=== PATIENT | male | born 1985 | race African-American/Black ===

== ENCOUNTER 2019-04-09 20:46 | Emergency (ER) | payer OTHER ==
--- NOTE | 2019-04-09 20:51 | PDOC ---
Rapid Medical Evaluation Time Seen by Provider: 04/09/19 20:49 Medical Evaluation: 04/09/19 20:50 HPI: Leg swelling and concern for liver disease PE: Slow speech appears intoxicated ORDERS: Labs Banana Bag Discharge Disposition - Diagnosis Intoxication - Referrals - Patient Instructions - Post Discharge Activity
[2019-04-09] MEDS ORDERED: FOLIC ACID INJECTION - 1 MG, THIAMINE HCL 100 MG, MULTIVIT INJECTION ADULT 10 ML in SOD... IVPB ONE ×2 (20:52→21:34)
[2019-04-09 20:54] VITALS: TEMP 97.9; BMI 27.3
--- NOTE | 2019-04-09 21:09 | PDOC ---
History of Present Illness - General Chief Complaint: Alcohol intoxication Stated Complaint: INTOX Time Seen by Provider: 04/09/19 20:49 History Source: Patient Exam Limitations: Intoxication - History of Present Illness Initial Comments: 04/09/19 21:09 33yM w PMHx cirrhosis, alcohol abuse presenting with alcohol intoxication, fall , and leg swelling. Passed out today while hanging out with friends, no head trauma, after drinking 1/2L vodka daily for past 3d. Had associated nose bleed after fall which self resolved. Ongoing R leg swelling for past month, L leg started swelling over past few days. Left AMA from [facility] 2 weeks ago before R leg could be ultrasound to r/o DVT. Denies headache, vision change, nausea/vomiting, chest pain/SOB, shaking, ABD pain, BLE sensation. Past History - Past Medical History Allergies/Adverse Reactions: Allergies Allergy/AdvReac Type Severity Reaction Status Date / Time No Known Allergies Allergy Verified 04/09/19 20:54 COPD: No Other medical history: cirrosis - Surgical History Abdominal Surgery: Yes (gastric bypass) - Psycho Social/Smoking Cessation Hx Smoking History: Never smoked Hx Alcohol Use: Yes Review of Systems - Review of Systems Constitutional: No: Chills, Fever HEENTM: No: Eye Pain, Nose Pain, Throat Pain Respiratory: No: Cough, Shortness of Breath Cardiac (ROS): No: Chest Pain, Palpitations ABD/GI: Yes: Abdominal Distended. No: Constipated, Diarrhea, Nausea, Vomiting : No: Burning, Dysuria, Flank Pain Musculoskeletal: No: Back Pain, Joint Pain Integumentary: No: Bruising, Dryness, Erythema Neurological: No: Headache, Seizure, Tingling Psychiatric: No: Anxiety, Depression, Stressors Endocrine: No: Excessive Sweating, Flushing, Intolerance to Cold, Intolerance to Heat *Physical Exam - Vital Signs Last Vital Signs Temp Pulse Resp BP Pulse Ox 97.9 F 100 H 18 132/72 99 04/09/19 20:50 04/09/19 20:50 04/09/19 20:50 04/09/19 20:50 04/09/19 20:50 - Physical Exam General Appearance: Yes: Nourished, Appropriately Dressed, Intoxicated HEENT: positive: EOMI, ELIOT, Normal Voice, Scleral Icterus (R), Scleral Icterus (L), Hearing Grossly Normal. negative: Nasal Congestion (dried blood in R nare) Neck: positive: Supple. negative: Tender, Rigid Respiratory/Chest: positive: Lungs Clear, Normal Breath Sounds. negative: Chest Tender, Respiratory Distress, Crackles, Rales, Rhonchi, Stridor, Wheezing Cardiovascular: positive: Regular Rhythm, Regular Rate, S1, S2. negative: Murmur Gastrointestinal/Abdominal: positive: Normal Bowel Sounds, Soft, Distended. negative: Tender, Guarding, Hernia, Mass Musculoskeletal: negative: CVA Tenderness (R), CVA Tenderness (L) Integumentary: positive: Normal Color, Dry. negative: Ecchymosis Neurologic: positive: Fully Oriented, Motor Strength 5/5, Responsive. negative : Normal Mood/Affect (delayed response, intoxicated), Numbness, Sensory Deficit , Confused ED Treatment Course - LABORATORY CBC & Chemistry Diagram: 04/09/19 22:20 04/09/19 22:20 Medical Decision Making - Medical Decision Making 04/09/19 21:55 Duplex US no DVT BLE Head/c-spine CT CXR - cardiomegaly, clear lung barrow Hgb 10.8 macrocytic anemia, INR 1.34, alcohol 234 --- 33yM w PMHx cirrhosis, alcohol abuse presenting with alcohol intoxication, fall , and leg swelling likely d/t cirrhosis Low concern for BLE DV (ruled out on duplex US) vs hepatic encephalopathy (no asterixis, not confused) vs withdrawal (no hand shaking/ ABD cramping/ vomiting ) vs pancreatitis (normal lipase) Given 1L banana bag and PO fluids Anticipate DC home vs [facility] detox - pending head, c-spine CT Signed out to night team Discharge - Discharge Information Problems reviewed: Yes Clinical Impression/Diagnosis: Left leg swelling Alcohol intoxication Qualifiers: Complication of substance-induced condition: uncomplicated Qualified Code(s): F10.920 - Alcohol use, unspecified with intoxication, uncomplicated Condition: Improved - Follow up/Referral - Patient Discharge Instructions - Post Discharge Activity
--- NOTE | 2019-04-09 22:40 | PDOC ---
Documentation entered by Yazan Obregon SCRIBE, acting as scribe for Raymundo Gregory MD. Raymundo Gregory MD: This documentation has been prepared by the Sabas shankar Daniel, SCRIBE, under my direction and personally reviewed by me in its entirety. I confirm that the documentation accurately reflects all work, treatment, procedures, and medical decision making performed by me. Attending Attestation - Resident Resident Name: Daren Sequeira - ED Attending Attestation I have performed the following: I have examined & evaluated the patient, The case was reviewed & discussed with the resident, I agree w/resident's findings & plan, Exceptions are as noted - HPI HPI: 04/09/19 22:14 The patient is a 33 year old male with a past medical history of alcohol abuse and liver cirrhosis here today for evaluation of syncope. The patient reports that he was drinking tonight with some of his friends when he thinks he passed out. He does not recall the circumstances of passing out. He states that he remembers waking up in the ambulance. Patient notes that his legs have been swollen in the past few weeks with the right worse than left and notes chronic abdominal distention. Denies any cough, hemptysis, ma, cp. Patient reports that he was admitted to [facility] in the past for liver failure with a history of epistaxis/gib, hoewver denies any recent history of gib/black stool. Patient denies headache, lightheadedness. Denies fever, chills. Denies chest pain, shortness of breath. Denies nausea, vomiting, diarrhea, dark or tarry stools, abdominal pain. Denies urinary symptoms. Allergies: NKA - Physicial Exam PE: 04/09/19 22:37 GENERAL: The patient is awake, alert, and fully oriented, Nontoxic - in no acute distress. HEAD: Normocephalic, atraumatic. EYES: extraocular movements intact, sclera anicteric, conjunctiva clear. ENT: Normal voice, Moist mucous membranes. NECK: Normal range of motion, supple LUNGS: Breath sounds equal, clear to auscultation bilaterally. No wheezes, no rhonchi, no rales. HEART: Regular rate and rhythm, normal S1 and S2 without murmur, rub or gallop. ABDOMEN: Soft, nontender, distended abdomen, No guarding, no rebound. No CVA tenderness EXTREMITIES: Normal range of motion, bl pitting edema R>L, neg homans, no calf tendernes NEUROLOGICAL: No facial assymetry, Normal speech, PSYCH: Normal mood, normal affect. SKIN: Warm, Dry, normal turgor, - Medical Decision Making 04/09/19 21:39 33y M hx of ETOH abuse, cirhosis presents with b/l LE edema and intoxication. ?syncpe vs intoxication Will obtain blood work, EtOH, CT head, EKG, PT/INR Will obtain ultrasound to rule out DVT Patient states he might be interested in detox he will consider it. 04/10/19 01:27 Patient's blood work was reviewed Awaiting CT results if negative anticipate discharge to detox Patient's alcohol level is elevated to 230, will need some time for metabolization of his alcohol suspect his LOC was likely intoxication rather than true syncope. Heart Score/ECG Review - ECG Impressions Comment:: 04/10/19 01:32 Twelve-lead EKG was performed and reviewed by me. There is normal sinus rhythm with a normal rate. Rate of 99 The axis is normal. The intervals are normal. There is normal R wave progression There are no ST or T wave abnormalities.
[2019-04-09 22:54] LABS: BASO % 0.8 % (0-2.0); HEMATOCRIT 31.2 % (35.4-49); HEMOGLOBIN 10.8 GM/dL (11.7-16.9); INR 1.34 (0.83-1.09); MCH 37.1 pg (25.7-33.7); MCHC 34.6 g/dl (32.0-35.9); MEAN CELL VOLUME 107.3 fl (80-96); MEAN PLT VOLUME 7.6 fl (7.5-11.1); MONO % 9.4 % (3.8-10.2); NEUT % 46.8 % (42.8-82.8); PLATELET COUNT 159 K/MM3 (134-434); PROTHROMBIN TIME (PATIENT) 15.8 SEC (9.7-13.0); RDW 12.6 % (11.9-15.9); WHITE BLOOD COUNT 5.4 K/mm3 (4.0-10.0)
[2019-04-09 23:18] LABS: ALBUMIN 2.8 g/dl (3.4-5.0); BILIRUBIN,TOTAL 2.5 mg/dL (0.2-1); BLOOD UREA NITROGEN 7.4 mg/dL (7-18); CALCIUM 8.5 mg/dL (8.5-10.1); CREATININE 1.1 mg/dL (0.55-1.3); POTASSIUM 3.9 mmol/L (3.5-5.1); TOT PROT 8.8 g/dl (6.4-8.2)
--- NOTE | 2019-04-10 03:13 | PDOC ---
*Physical Exam - Vital Signs Last Vital Signs Temp Pulse Resp BP Pulse Ox 97.9 F 100 H 18 132/72 99 04/09/19 20:50 04/09/19 20:50 04/09/19 20:50 04/09/19 20:50 04/09/19 20:50 ED Treatment Course - LABORATORY CBC & Chemistry Diagram: 04/09/19 22:20 04/09/19 22:20 - ADDITIONAL ORDERS Additional order review: Laboratory Results 04/09/19 04/09/19 04/09/19 22:20 22:20 22:20 PT with INR 15.80 H INR 1.34 H Sodium Potassium Chloride Carbon Dioxide Anion Gap BUN Creatinine Est GFR (CKD-EPI)AfAm Est GFR (CKD-EPI)NonAf Random Glucose Calcium Total Bilirubin AST ALT Alkaline Phosphatase Total Protein Albumin Lipase 156 Alcohol, Quantitative 234.5 H 04/09/19 22:20 PT with INR INR Sodium 141 Potassium 3.9 Chloride 108 H Carbon Dioxide 23 Anion Gap 10 BUN 7.4 Creatinine 1.1 Est GFR (CKD-EPI)AfAm 101.69 Est GFR (CKD-EPI)NonAf 87.74 Random Glucose 85 Calcium 8.5 Total Bilirubin 2.5 H AST 70 H ALT 31 Alkaline Phosphatase 146 H Total Protein 8.8 H Albumin 2.8 L Lipase Alcohol, Quantitative 04/09/19 22:20 RBC 2.90 L MCV 107.3 H MCHC 34.6 RDW 12.6 MPV 7.6 Neutrophils % 46.8 Lymphocytes % 42.0 H Monocytes % 9.4 Eosinophils % 1.0 Basophils % 0.8 - Medications Given in the ED: ED Medications Discontinued Medications Generic Name Dose Route Start Last Admin Trade Name Oscar PRN Reason Stop Dose Admin Folic Acid 1 mg/ Thiamine HCl 1,000 mls @ 125 mls/hr 04/09/19 20:52 04/09/19 21:50 100 mg/ Multivitamins/Minerals IVPB 04/10/19 04:51 Not Given 10 ml/ Sodium Chloride ONCE ONE Medical Decision Making - Medical Decision Making 04/10/19 03:13 Patient Name: MAMI HAILE THIS IS A PRELIMINARY REPORT FROM [facility] DATE OF SERVICE: 2019-04-09 23:48:27 IMAGES: [id number] EXAM: HEAD CT WITHOUT CONTRAST HISTORY: Trauma. COMPARISON: None. FINDINGS: Normal-sized ventricles normal in position without midline shift. No evidence of intracranial mass, hemorrhage, or infarction. No abnormal extra-axial fluid collections. Intact gonsales-white matter junction differentiation. Focal stranding in the left frontoparietal scalp. Intact osseous calvarium. Deformity of the left nasal bone without associated soft tissue swelling and this is probably related to old trauma. Unremarkable intraorbital structures. Clear mastoids and middle ear cavities. Clear imaged paranasal sinuses. IMPRESSION: No acute traumatic intracranial or osseous abnormality. 04/10/19 03:14 Patient Name: MAMI HAILE THIS IS A PRELIMINARY REPORT FROM [facility] DATE OF SERVICE: 2019-04-09 23:45:33 IMAGES: [id number] EXAM: CERVICAL SPINE CT W/O CONTR HISTORY: Trauma. COMPARISON: None. FINDINGS: Straightening of the normal cervical lordosis. No acute fractures or dislocations. Non-fusion of the posterior arch of C1, normal variant. Mild degenerative changes and disc bulging noted at C3-C4 and C4-C5. Evaluation of the intraspinal contents limited on CT scan. Prevertebral soft tissues within normal limits. Unremarkable thyroid gland. Patent airway. IMPRESSION: 1. Straightening of the normal cervical or ptosis could be due to spasm or patient positioning. 2. Mild degenerative changes with disc bulging at C3-C4 and C4-C5. Discharge - Discharge Information Problems reviewed: Yes Clinical Impression/Diagnosis: Left leg swelling Alcohol intoxication Qualifiers: Complication of substance-induced condition: uncomplicated Qualified Code(s): F10.920 - Alcohol use, unspecified with intoxication, uncomplicated Condition: Improved Disposition: HOME - Follow up/Referral - Patient Discharge Instructions Additional Instructions: PT ACCEPTED TO [facility]HOL [facility]; LAST REMAINING BED AT [facility]OX; HE WILL BE SENT THERE WITH [facility]. - Post Discharge Activity
--- NOTE | 2019-04-10 03:59 | PDOC ---
*Physical Exam - Vital Signs Last Vital Signs Temp Pulse Resp BP Pulse Ox 97.9 F 100 H 18 132/72 99 04/09/19 20:50 04/09/19 20:50 04/09/19 20:50 04/09/19 20:50 04/09/19 20:50 ED Treatment Course - LABORATORY CBC & Chemistry Diagram: 04/09/19 22:20 04/09/19 22:20 - ADDITIONAL ORDERS Additional order review: Laboratory Results 04/09/19 04/09/19 04/09/19 22:20 22:20 22:20 PT with INR 15.80 H INR 1.34 H Sodium Potassium Chloride Carbon Dioxide Anion Gap BUN Creatinine Est GFR (CKD-EPI)AfAm Est GFR (CKD-EPI)NonAf Random Glucose Calcium Total Bilirubin AST ALT Alkaline Phosphatase Total Protein Albumin Lipase 156 Alcohol, Quantitative 234.5 H 04/09/19 22:20 PT with INR INR Sodium 141 Potassium 3.9 Chloride 108 H Carbon Dioxide 23 Anion Gap 10 BUN 7.4 Creatinine 1.1 Est GFR (CKD-EPI)AfAm 101.69 Est GFR (CKD-EPI)NonAf 87.74 Random Glucose 85 Calcium 8.5 Total Bilirubin 2.5 H AST 70 H ALT 31 Alkaline Phosphatase 146 H Total Protein 8.8 H Albumin 2.8 L Lipase Alcohol, Quantitative 04/09/19 22:20 RBC 2.90 L MCV 107.3 H MCHC 34.6 RDW 12.6 MPV 7.6 Neutrophils % 46.8 Lymphocytes % 42.0 H Monocytes % 9.4 Eosinophils % 1.0 Basophils % 0.8 - Medications Given in the ED: ED Medications Discontinued Medications Generic Name Dose Route Start Last Admin Trade Name Oscar PRN Reason Stop Dose Admin Folic Acid 1 mg/ Thiamine HCl 1,000 mls @ 125 mls/hr 04/09/19 20:52 04/09/19 21:50 100 mg/ Multivitamins/Minerals IVPB 04/10/19 04:51 Not Given 10 ml/ Sodium Chloride ONCE ONE Medical Decision Making - Medical Decision Making Sign out received from Dr. Sequeira. 33M w/hx EtOH use disorder p/w etoh intoxication, reporting interest in detox. Plan for serial reassessment, and once clinically sober discharge to either home or detox if bed available. --- Detox bed available at [facility] if Mr. Lo would like to pursue detox. --- On reassessment, patient is clinically sober, ambulating without assistance without difficulty and fully alert and oriented. Discussed availability of detox bed. He declines detox at this time. Plan for discharge with PCP follow up. Discharge - Discharge Information Problems reviewed: Yes Clinical Impression/Diagnosis: Left leg swelling Alcohol intoxication Qualifiers: Complication of substance-induced condition: uncomplicated Qualified Code(s): F10.920 - Alcohol use, unspecified with intoxication, uncomplicated Condition: Improved Disposition: HOME - Admission No - Follow up/Referral - Patient Discharge Instructions Additional Instructions: You were seen in the ER for alcohol intoxication. Your bloodwork showed some signs of liver damage. Please consider detox or reducing your alcohol intake. Please return to the ER if you have chest pain, difficulty breathing, weakness, vision changes, or confusion. Please see your primary care provider as soon as possible, in the next 4 days. - Post Discharge Activity
[2019-04-10 04:13] VITALS: BP 137/76; PULSE 86
[2019-04-10 04:59] LABS: MACROCYTOSIS 2+
--- NOTE | 2019-04-10 08:45 | EKG ---
Test Reason : Blood Pressure : / mmHG Vent. Rate : 099 BPM Atrial Rate : 099 BPM P-R Int : 130 ms QRS Dur : 098 ms QT Int : 368 ms P-R-T Axes : 070 004 025 degrees QTc Int : 472 ms NORMAL SINUS RHYTHM POSSIBLE LEFT ATRIAL ENLARGEMENT BORDERLINE ECG NO PREVIOUS ECGS AVAILABLE Confirmed by CRISTOFER MENESES MD ([id number]) on 04/10/2019 8:45:27 AM Referred By: Confirmed By:CRISTOFER MENESES MD
== END 2019-04-10 04:00 | disposition home or self-care (01) ==
LOC: JER 20:46
PROC: 3E033GC Introduction of Other Therapeutic Substance into Peripheral Vein, Percutaneous Approach (ICD-10-PCS; principal; 2019-04-09)
DX: F10.120 Alcohol abuse with intoxication, uncomplicated (principal); Y90.7 Blood alcohol level of 200-239 mg/100 ml; R60.0 Localized edema; R55 Syncope and collapse
CPT/HCPCS: 36415; 70450-TC; 71045-TC-FY; 72125-TC; 80053; 80307; 83690; 85025; 85610; 93005; 93010; 93970-TC; 96365; 96366; 99284-25; J7030

== ENCOUNTER 2021-10-31 00:13 | Inpatient (IN) | payer OTHER ==
[2021-10-31] MEDS ORDERED: MAG HYDROX/AL HYDROX/SIMETH 30 ML UNIT-DOSE CUP PO ONE (01:58)
[2021-10-31] MEDS ORDERED: ACETAMINOPHEN 1000 MG/100 ML BAG IVPB ONE (01:58)
[2021-10-31] MEDS ORDERED: FAMOTIDINE 10 MG TABLET PO ONE (01:58)
[2021-10-31] MEDS ORDERED: FAMOTIDINE 20 MG/50 ML IVPB 20 MG/50 ML MG IVPB ONE ×2 (02:07→02:17)
[2021-10-31] MEDS ORDERED: MAG HYDROX/AL HYDROX/SIMETH 30 ML UNIT-DOSE CUP ONE (02:17)
[2021-10-31] MEDS ORDERED: ACETAMINOPHEN INJECTION 100 ML IVPB ONE (02:17)
[2021-10-31] MEDS ORDERED: SODIUM CHLORIDE 0.9% 500 ML INFUS.BAG IV ONE (02:18)
[2021-10-31 03:16] LABS: BASO % 1.1 % (0-2.0); EOS % 2.5 % (0-4.5); HEMATOCRIT 21.7 % (35.4-49); HEMOGLOBIN 7.2 GM/dL (11.7-16.9); LYMPH % 41.2 % (8-40); MCH 27.6 pg (25.7-33.7); MEAN CELL VOLUME 83.6 fl (80-96); MEAN PLT VOLUME 7.2 fl (7.5-11.1); MONO % 4.8 % (3.8-10.2); NEUT % 50.4 % (42.8-82.8); PLATELET COUNT 237 10^3/uL (134-434); RDW 19.6 % (11.9-15.9); WHITE BLOOD COUNT 2.7 K/mm3 (4.0-10.0)
[2021-10-31] MEDS ORDERED: morphine CARPU-JECT 2 MG/1 ML DISP.SYRIN IVPUSH ONE (03:35)
[2021-10-31 03:40] LABS: CHLORIDE 105 mmol/L (98-107); SODIUM 142 mmol/L (136-145)
[2021-10-31 03:42] LABS: ALBUMIN 2.9 g/dl (3.4-5.0); ANION GAP 14 MMOL/L (8-16); BLOOD UREA NITROGEN 12.6 mg/dL (7-18); CO2 24 mmol/L (21-32); GLUCOSE,RANDOM 78 mg/dL (74-106); LIPASE 187 U/L (73-393)
[2021-10-31 03:45] LABS: CREATININE 0.7 mg/dL (0.55-1.3); SGOT/AST 51 U/L (15-37); SGPT/ALT 27 U/L (13-61)
[2021-10-31 03:47] LABS: BILIRUBIN,TOTAL 0.9 mg/dL (0.2-1); TOT PROT 7.3 g/dl (6.4-8.2)
[2021-10-31 03:48] LABS: ALK PHOS 172 U/L (45-117)
[2021-10-31 06:05] LABS: INR 1.07 (0.83-1.09); PROTHROMBIN TIME (PATIENT) 12.3 SEC (9.7-13.0)
[2021-10-31 06:08] LABS: ACTIVATED PTT 28.5 SECONDS (25.2-36.5)
[2021-10-31] MEDS ORDERED: POTASSIUM CHLORIDE TABS 20 MEQ TABLET.ER (FP) PO ONE ×2 (08:10→09:33)
[2021-10-31 08:51] LABS: MAGNESIUM 1.6 mg/dL (1.8-2.4)
[2021-10-31 08:55] LABS: PHOSPHOROUS 3.8 mg/dL (2.5-4.9)
[2021-10-31] MEDS ORDERED: PANTOPRAZOLE SODIUM 40 MG VIAL ONE (09:33)
[2021-10-31] MEDS ORDERED: oxyCODONE HCL 5 MG TABLET PO PRN (09:48)
[2021-10-31] MEDS ORDERED: morphine CARPU-JECT 2 MG/1 ML DISP.SYRIN IVPUSH PRN (09:49)
[2021-10-31] MEDS ORDERED: PANTOPRAZOLE SODIUM 40 MG VIAL IVPUSH SCH (10:00)
[2021-10-31 11:20] LABS: BILIRUBIN,DIRECT 0.5 mg/dL (0.0-0.2)
[2021-10-31] MEDS: BICTEGRAV/EMTRICIT/TENOFOV (BIKTARVY) 50-200-25 MG TABLET PO SCH (12:09)
[2021-10-31] MEDS ORDERED: cefTRIAXone SODIUM 1 GM VIAL ONE (12:11)
[2021-10-31 12:13] LABS: GAMMA GLUTAMYL TRANSPEPTIDASE 1218 U/L (5-85)
[2021-10-31] MEDS: LORazepam 2 MG/ML SDV VIAL IVPUSH PRN ×2 (12:19→23:37)
[2021-10-31] MEDS: CEFTRIAXONE 1 GM in DEXTROSE 5%-WATER - 50 ML IVPB SCH (12:19)
[2021-10-31] MEDS ORDERED: LACTATED RINGERS SOLUTION 1,000 ML/1,000 ML INFUS.BAG IV SCH (16:00)
[2021-10-31] MEDS: LACTATED RINGERS SOLUTION 1,000 ML/1,000 ML INFUS.BAG IV SCH (19:39)
[2021-11-01 07:55] LABS: BASO % 0.7 % (0-2.0); HEMATOCRIT 21.1 % (35.4-49); LYMPH % 29.2 % (8-40); MCH 27.9 pg (25.7-33.7); MCHC 33.1 g/dl (32.0-35.9); MEAN CELL VOLUME 84.3 fl (80-96); MEAN PLT VOLUME 7.5 fl (7.5-11.1); MONO % 7.4 % (3.8-10.2); NEUT % 59.7 % (42.8-82.8); PLATELET COUNT 174 10^3/uL (134-434); RBC 2.51 M/mm3 (4.00-5.60); RDW 19.3 % (11.9-15.9)
[2021-11-01 08:01] LABS: WHITE BLOOD COUNT 1.8 K/mm3 (4.0-10.0)
[2021-11-01 08:27] LABS: BILIRUBIN,TOTAL 1.4 mg/dL (0.2-1); TOT PROT 6.7 g/dl (6.4-8.2)
[2021-11-01 08:29] LABS: BLOOD UREA NITROGEN 4.8 mg/dL (7-18)
[2021-11-01 08:30] LABS: ALBUMIN 2.7 g/dl (3.4-5.0); MAGNESIUM 1.3 mg/dL (1.8-2.4)
[2021-11-01 08:33] LABS: CREATININE 0.6 mg/dL (0.55-1.3); PHOSPHOROUS 3.2 mg/dL (2.5-4.9)
[2021-11-01 08:53] LABS: ANISOCYTOSIS 1+; MACROCYTOSIS 1+
[2021-11-01] MEDS ORDERED: MAGNESIUM 2GM/50ML STERILE WATER IVPB IVPB ONE (09:30)
[2021-11-01] MEDS: BICTEGRAV/EMTRICIT/TENOFOV (BIKTARVY) 50-200-25 MG TABLET PO SCH (12:38)
[2021-11-01] MEDS ORDERED: MAGNESIUM SULFATE IN WATER 2 GM/50 ML IVPB IVPB ONE (12:46)
[2021-11-01] MEDS ORDERED: CEFTRIAXONE 1 GM/50 ML BAG ONE (12:46)
[2021-11-01] MEDS: CEFTRIAXONE 1 GM in DEXTROSE 5%-WATER - 50 ML IVPB SCH (12:54)
[2021-11-01] MEDS ORDERED: LORazepam 1 MG TABLET PO PRN (15:50)
[2021-11-01] MEDS ORDERED: IRON SUCROSE INJECTION 200 MG in SODIUM CHLORIDE 90 ML IVPB ONE (15:51)
[2021-11-01] MEDS ORDERED: LORazepam 1 MG TABLET ONE ×2 (17:14→23:22)
[2021-11-01] MEDS: LORazepam 1 MG TABLET PO SCH ×2 (17:27→23:26)
[2021-11-01] MEDS: LACTATED RINGERS SOLUTION 1,000 ML/1,000 ML INFUS.BAG IV SCH (22:07)
[2021-11-02] MEDS ORDERED: LORazepam 1 MG TABLET ONE ×2 (05:22→11:31)
[2021-11-02] MEDS: LORazepam 1 MG TABLET PO SCH ×4 (05:25→22:02)
[2021-11-02 06:23] VITALS: RESP 18
[2021-11-02] MEDS ORDERED: cefTRIAXone SODIUM 1 GM VIAL ONE (08:11)
[2021-11-02 08:39] LABS: BASO % 0.8 % (0-2.0); HEMATOCRIT 21.9 % (35.4-49); HEMOGLOBIN 7.2 GM/dL (11.7-16.9); LYMPH % 29.3 % (8-40); MCH 27.6 pg (25.7-33.7); MEAN CELL VOLUME 83.7 fl (80-96); MEAN PLT VOLUME 7.8 fl (7.5-11.1); MONO % 7.2 % (3.8-10.2); NEUT % 59.7 % (42.8-82.8); PLATELET COUNT 161 10^3/uL (134-434); RBC 2.61 M/mm3 (4.00-5.60); RDW 19.2 % (11.9-15.9)
[2021-11-02 08:45] LABS: INR 1.18 (0.83-1.09); PROTHROMBIN TIME (PATIENT) 13.6 SEC (9.7-13.0)
[2021-11-02 09:04] LABS: ALBUMIN 2.8 g/dl (3.4-5.0); BLOOD UREA NITROGEN 5.7 mg/dL (7-18); CALCIUM 8.4 mg/dL (8.5-10.1); MAGNESIUM 1.5 mg/dL (1.8-2.4)
[2021-11-02 09:07] LABS: CREATININE 0.7 mg/dL (0.55-1.3); PHOSPHOROUS 3.5 mg/dL (2.5-4.9)
[2021-11-02 09:09] LABS: BILIRUBIN,TOTAL 1.1 mg/dL (0.2-1)
[2021-11-02] MEDS: BICTEGRAV/EMTRICIT/TENOFOV (BIKTARVY) 50-200-25 MG TABLET PO SCH (09:26)
[2021-11-02] MEDS: CEFTRIAXONE 1 GM in DEXTROSE 5%-WATER - 50 ML IVPB SCH (09:26)
[2021-11-02] MEDS: PANTOPRAZOLE SODIUM 40 MG VIAL IVPUSH SCH ×2 (09:27→21:47)
[2021-11-02] MEDS ORDERED: MAGNESIUM 2GM/50ML STERILE WATER IVPB IVPB ONE (11:15)
[2021-11-02] MEDS ORDERED: MAGNESIUM SULFATE IN WATER 2 GM/50 ML IVPB IVPB ONE (11:29)
[2021-11-02 11:36] LABS: URINE APPEARANCE CLEAR; URINE BILIRUBIN NEGATIVE (NEGATIVE); URINE COLOR YELLOW; URINE GLUCOSE (UA) NEGATIVE (NEGATIVE); URINE KETONE NEGATIVE (NEGATIVE); URINE LEUK ESTERASE NEGATIVE (NEGATIVE); URINE NITRITE NEGATIVE (NEGATIVE); URINE PROTEIN NEGATIVE (NEGATIVE)
[2021-11-02 15:17] VITALS: BMI 26.6
[2021-11-02] MEDS: LACTATED RINGERS SOLUTION 1,000 ML/1,000 ML INFUS.BAG IV SCH (19:40)
[2021-11-03] MEDS: LORazepam 1 MG TABLET PO SCH ×4 (06:06→22:21)
[2021-11-03] MEDS: PANTOPRAZOLE SODIUM 40 MG VIAL IVPUSH SCH ×2 (09:40→21:13)
[2021-11-03] MEDS: BICTEGRAV/EMTRICIT/TENOFOV (BIKTARVY) 50-200-25 MG TABLET PO SCH (09:40)
[2021-11-03 10:02] LABS: BASO % 0.7 % (0-2.0); EOS % 2.2 % (0-4.5); HEMATOCRIT 22.6 % (35.4-49); HEMOGLOBIN 7.3 GM/dL (11.7-16.9); LYMPH % 28.5 % (8-40); MCH 27.7 pg (25.7-33.7); MCHC 32.3 g/dl (32.0-35.9); MEAN CELL VOLUME 85.6 fl (80-96); MEAN PLT VOLUME 8.7 fl (7.5-11.1); MONO % 7.1 % (3.8-10.2); NEUT % 61.5 % (42.8-82.8); PLATELET COUNT 144 10^3/uL (134-434); RBC 2.64 M/mm3 (4.00-5.60); RDW 19.4 % (11.9-15.9)
[2021-11-03 10:21] LABS: CALCIUM 8.5 mg/dL (8.5-10.1)
[2021-11-03 10:22] LABS: ALBUMIN 2.8 g/dl (3.4-5.0); BLOOD UREA NITROGEN 8.9 mg/dL (7-18); MAGNESIUM 1.7 mg/dL (1.8-2.4)
[2021-11-03 10:25] LABS: CREATININE 0.9 mg/dL (0.55-1.3); PHOSPHOROUS 2.7 mg/dL (2.5-4.9)
[2021-11-03 10:26] LABS: BILIRUBIN,TOTAL 1.1 mg/dL (0.2-1)
[2021-11-03 10:27] LABS: TOT PROT 6.9 g/dl (6.4-8.2)
[2021-11-03] MEDS: LACTATED RINGERS SOLUTION 1,000 ML/1,000 ML INFUS.BAG IV SCH ×2 (14:45→20:15)
[2021-11-03] MEDS ORDERED: POTASSIUM CHLORIDE TABS 20 MEQ TABLET.ER (FP) PO ONE (15:00)
[2021-11-03] MEDS ORDERED: MAGNESIUM SULF 50% (8.12 MEQ/2 ML-1 GM VIAL) IVPB ONE (15:00)
[2021-11-04] MEDS ORDERED: LORazepam 0.5 MG TABLET PO PRN
[2021-11-04] MEDS: LORazepam 0.5 MG TABLET PO SCH ×4 (06:10→23:51)
[2021-11-04] MEDS: PANTOPRAZOLE SODIUM 40 MG VIAL IVPUSH SCH ×2 (09:21→21:37)
[2021-11-04] MEDS: BICTEGRAV/EMTRICIT/TENOFOV (BIKTARVY) 50-200-25 MG TABLET PO SCH (09:21)
[2021-11-04 09:28] LABS: BLOOD UREA NITROGEN 10.3 mg/dL (7-18); CALCIUM 8.5 mg/dL (8.5-10.1); MAGNESIUM 1.9 mg/dL (1.8-2.4)
[2021-11-04 09:31] LABS: CREATININE 0.8 mg/dL (0.55-1.3)
[2021-11-04] MEDS ORDERED: DICYCLOMINE HCL 10 MG CAPSULE PO ONE (13:34)
[2021-11-04] MEDS: CHOLECALCIFEROL (VIT D3) 5000 UNITS (125 MCG) CAP PO SCH (14:10)
[2021-11-04] MEDS ORDERED: oxyCODONE HCL 5 MG TABLET PO ONE (22:01)
[2021-11-04] MEDS: LACTATED RINGERS SOLUTION 1,000 ML/1,000 ML INFUS.BAG IV SCH (23:52)
[2021-11-05] MEDS ORDERED: LORazepam 0.5 MG TABLET PO ONE (05:00)
[2021-11-05] MEDS: PANTOPRAZOLE SODIUM 40 MG VIAL IVPUSH SCH (10:58)
[2021-11-05] MEDS: BICTEGRAV/EMTRICIT/TENOFOV (BIKTARVY) 50-200-25 MG TABLET PO SCH (11:05)
[2021-11-05] MEDS: CHOLECALCIFEROL (VIT D3) 5000 UNITS (125 MCG) CAP PO SCH (11:05)
[2021-11-05 14:13] VITALS: BP 142/85; PULSE 78; TEMP 98.5
[2021-11-08 11:09] LABS: VITAMIN E (B-GAMMA) 0.8 mg/L (0.7-4.9)
== END 2021-11-05 15:25 | disposition home or self-care (01) | DRG 282 ==
LOC: JER 00:13 → JERBED 04:42 → J6S 11-02 14:23
PROVIDERS: ADMIT Internal Medicine
DX: K85.20 Alcohol induced acute pancreatitis without necrosis or infection (principal); K70.30 Alcoholic cirrhosis of liver without ascites; D50.9 Iron deficiency anemia, unspecified; D70.9 Neutropenia, unspecified; E83.42 Hypomagnesemia; Z21 Asymptomatic human immunodeficiency virus [HIV] infection status; F10.129 Alcohol abuse with intoxication, unspecified; Z87.19 Personal history of other diseases of the digestive system; K80.20 Calculus of gallbladder without cholecystitis without obstruction; M79.642 Pain in left hand; R19.7 Diarrhea, unspecified; R16.0 Hepatomegaly, not elsewhere classified; R63.4 Abnormal weight loss; Z68.26 Body mass index [BMI] 26.0-26.9, adult; S61.412A Laceration without foreign body of left hand, initial encounter; Y08.89XA Assault by other specified means, initial encounter; Y93.89 Activity, other specified; Y92.89 Other specified places as the place of occurrence of the external cause
CPT/HCPCS: 36415; 73130-TC-LT-FY; 73200-TC-RT; 74176-TC; 76705-TC; 78226-TC; 80048; 80053; 80307; 81003; 82105; 82248; 82272; 82306; 82607; 82728; 82746; 82977; 83540; 83550; 83690; 83735; 84100; 84443; 84446; 84484; 84590; 84597; 85025; 85610; 85730; 86140; 86645; 86705; 86708; 86803; 86850; 86900; 86901; 87040; 87086; 87340; 87517; 93005; 93010; 99285-25; A9537; C9803-CS; J1756; U0003; U0005

== ENCOUNTER 2022-11-06 11:25 | Inpatient (IN) | payer OTHER ==
[~2022-11-06 11:25] MED LIST: diazePAM 5 MG TABLET PO SCH
[2022-11-06 11:49] VITALS: BMI 25.0
[2022-11-06] MEDS ORDERED: BISMUTH SUBSALICYLATE 524 MG/30 ML PO PRN (13:23)
[2022-11-06] MEDS ORDERED: IBUPROFEN 400 MG TABLET (FP) PO PRN (13:23)
[2022-11-06] MEDS ORDERED: NALOXONE HCL (KLOXXADO) 8 MG SPRAY NS PRN (13:23)
[2022-11-06] MEDS ORDERED: ONDANSETRON *ODT* 4 MG TABLET SL PRN (13:23)
[2022-11-06] MEDS ORDERED: NALOXONE HCL 0.4 MG/ML VIAL IM PRN (13:23)
[2022-11-06] MEDS ORDERED: DICYCLOMINE HCL 10 MG CAPSULE PO PRN (13:23)
[2022-11-06] MEDS ORDERED: ACETAMINOPHEN 325 MG TABLET (FP) PO PRN (13:23)
[2022-11-06] MEDS ORDERED: MAG HYDROX/AL HYDROX/SIMETH 30 ML UNIT-DOSE CUP PO PRN (13:23)
[2022-11-06] MEDS ORDERED: IBUPROFEN 600 MG TABLET (FP) PO PRN (13:23)
[2022-11-06] MEDS ORDERED: LOPERAMIDE HCL 2 MG CAPSULE PO PRN (13:23)
[2022-11-06] MEDS ORDERED: BENZONATATE 200 MG CAPSULE PO PRN (13:23)
[2022-11-06] MEDS ORDERED: MAGNESIUM HYDROX 2400MG/30ML ORAL SUSPENSION 30 ML CUP PO PRN (13:23)
[2022-11-06] MEDS ORDERED: BENZOCAINE/MENTHOL (CHLORASEPTIC ) LOZENGE MM PRN (13:23)
[2022-11-06] MEDS ORDERED: guaiFENesin 600 MG TABLET.ER (FP) PO PRN (13:23)
[2022-11-06] MEDS ORDERED: POLYETHYLENE GLYCOL (HEALTHYLAX) 3350 17 GM PACKET PO PRN (13:23)
[2022-11-06] MEDS: diazePAM 5 MG TABLET PO PRN (14:49)
[2022-11-06] MEDS ORDERED: ONDANSETRON *ODT* 4 MG TABLET ONE (14:53)
[2022-11-06] MEDS ORDERED: NEOMYCIN/POLYMYXIN/HC TOPICAL CREAM 7.5 GM TUBE TP SCH ×2 (15:30→20:15)
[2022-11-06] MEDS: PRENATAL VITAMINS W/ FOLIC ACID TABLET (FP) PO SCH (15:55)
[2022-11-06] MEDS: diazePAM 5 MG TABLET PO SCH ×2 (17:49→22:07)
[2022-11-06] MEDS: MELATONIN 5 MG TABLETS PO SCH (22:06)
[2022-11-06] MEDS: THIAMINE HCL 100 MG TABLET (FP) PO SCH (22:06)
[2022-11-07] MEDS: diazePAM 5 MG TABLET PO SCH ×4 (05:24→22:06)
[2022-11-07 09:58] LABS: HEMOGLOBIN 7.7 GM/dL (11.7-16.9); MCH 28.5 pg (25.7-33.7); MCHC 31.9 g/dl (32.0-35.9); MEAN CELL VOLUME 89.3 fl (80-96); MEAN PLT VOLUME 8.8 fl (7.5-11.1); PLATELET COUNT 116 10^3/uL (134-434); RBC 2.69 M/mm3 (4.00-5.60); RDW 24.6 % (11.9-15.9); WHITE BLOOD COUNT 2.2 K/mm3 (4.0-10.0)
[2022-11-07 09:59] LABS: POTASSIUM 3.9 mmol/L (3.5-5.1)
[2022-11-07] MEDS ORDERED: PANTOPRAZOLE SOD 40 MG SUSPENSION PACKET PO SCH (10:00)
[2022-11-07 10:02] LABS: CALCIUM 8.7 mg/dL (8.5-10.1)
[2022-11-07 10:03] LABS: ALBUMIN 3.2 g/dl (3.4-5.0)
[2022-11-07 10:06] LABS: BLOOD UREA NITROGEN 14.8 mg/dL (7-18)
[2022-11-07 10:07] LABS: BILIRUBIN,TOTAL 1.5 mg/dL (0.2-1); TOT PROT 8.6 g/dl (6.4-8.2)
[2022-11-07] MEDS: PRENATAL VITAMINS W/ FOLIC ACID TABLET (FP) PO SCH (10:17)
[2022-11-07] MEDS: METHOCARBAMOL 500 MG TABLET PO PRN ×2 (10:17→22:06)
[2022-11-07] MEDS: BICTEGRAV/EMTRICIT/TENOFOV (BIKTARVY) 50-200-25 MG TABLET PO SCH (10:18)
[2022-11-07] MEDS: BACITRACIN 0.9 GM PACKET TP SCH (22:05)
[2022-11-07] MEDS: MELATONIN 5 MG TABLETS PO SCH (22:06)
[2022-11-07] MEDS: THIAMINE HCL 100 MG TABLET (FP) PO SCH (22:06)
[2022-11-08] MEDS: diazePAM 5 MG TABLET PO SCH ×3 (05:36→22:29)
[2022-11-08] MEDS: METHOCARBAMOL 500 MG TABLET PO PRN (05:37)
[2022-11-08] MEDS: BICTEGRAV/EMTRICIT/TENOFOV (BIKTARVY) 50-200-25 MG TABLET PO SCH (07:12)
[2022-11-08] MEDS: PRENATAL VITAMINS W/ FOLIC ACID TABLET (FP) PO SCH (10:36)
[2022-11-08] MEDS: BACITRACIN 0.9 GM PACKET TP SCH ×2 (10:36→22:29)
[2022-11-08] MEDS: PANTOPRAZOLE 40 MG TABLET PO SCH (10:37)
[2022-11-08] MEDS: hydrOXYzine PAMOATE 25 MG CAPSULE (FP) PO PRN ×2 (10:37→22:30)
[2022-11-08] MEDS: amLODIPine BESYLATE 10 MG TABLET (FP) PO SCH (16:05)
[2022-11-08] MEDS ORDERED: MELATONIN 5 MG TABLETS PO SCH (22:00)
[2022-11-08 22:16] VITALS: TEMP 97.8
[2022-11-08] MEDS: THIAMINE HCL 100 MG TABLET (FP) PO SCH (22:28)
[2022-11-09] MEDS: METHOCARBAMOL 500 MG TABLET PO PRN ×2 (01:52→10:19)
[2022-11-09] MEDS: diazePAM 5 MG TABLET PO PRN (01:54)
[2022-11-09] MEDS ORDERED: diazePAM 5 MG TABLET PO SCH (06:00)
[2022-11-09] MEDS: BICTEGRAV/EMTRICIT/TENOFOV (BIKTARVY) 50-200-25 MG TABLET PO SCH (07:01)
[2022-11-09 09:22] VITALS: BP 141/99; PULSE 94; RESP 17
[2022-11-09] MEDS: hydrOXYzine PAMOATE 25 MG CAPSULE (FP) PO PRN (10:19)
[2022-11-09] MEDS: BACITRACIN 0.9 GM PACKET TP SCH (10:19)
[2022-11-09] MEDS: amLODIPine BESYLATE 10 MG TABLET (FP) PO SCH (10:19)
[2022-11-09] MEDS: PANTOPRAZOLE 40 MG TABLET PO SCH (10:19)
[2022-11-09] MEDS: PRENATAL VITAMINS W/ FOLIC ACID TABLET (FP) PO SCH (10:19)
[2022-11-09] MEDS ORDERED: PENICILLIN G BENZATHINE 2,400,000 UNIT/4 ML PFS IM ONE (10:45)
[2022-11-10] MEDS ORDERED: diazePAM 5 MG TABLET PO ONE (06:00)
[2022-11-15] MEDS ORDERED: ERGOCALCIFEROL (VIT D2) 50,000 UNIT (1.25 MG) CAPSULE PO SCH (10:00)
== END 2022-11-09 10:55 | disposition home or self-care (01) | DRG 775 ==
LOC: YASAS 11:25 → Y6N 15:11
PROVIDERS: ADMIT Allergy & Immunology; ATTEND Allergy & Immunology
PROC: HZ2ZZZZ Detoxification Services for Substance Abuse Treatment (ICD-10-PCS; principal; 2022-11-06)
DX: F10.230 Alcohol dependence with withdrawal, uncomplicated (principal); Z21 Asymptomatic human immunodeficiency virus [HIV] infection status; I10 Essential (primary) hypertension; G47.00 Insomnia, unspecified; K70.30 Alcoholic cirrhosis of liver without ascites; K86.1 Other chronic pancreatitis; M79.89 Other specified soft tissue disorders; R76.8 Other specified abnormal immunological findings in serum; Z86.19 Personal history of other infectious and parasitic diseases; Z87.19 Personal history of other diseases of the digestive system
CPT/HCPCS: 36415; 80053; 82306; 85027; 86593; 86780; 87635; Q0162

== ENCOUNTER 2022-12-10 18:17 | Inpatient (IN) | payer OTHER ==
[2022-12-10 18:24] VITALS: BMI 25.8
[2022-12-10] MEDS ORDERED: LACTATED RINGERS SOLUTION 1000 ML INFUS.BAG IV ONE (21:02)
[2022-12-10 21:54] LABS: BASO % 0.8 % (0-2.0); EOS % 1.3 % (0-4.5); HEMATOCRIT 30.5 % (35.4-49); LYMPH % 53.8 % (8-40); MCH 27.1 pg (25.7-33.7); MCHC 32.7 g/dl (32.0-35.9); MEAN CELL VOLUME 82.7 fl (80-96); MEAN PLT VOLUME 7.3 fl (7.5-11.1); MONO % 3.7 % (3.8-10.2); NEUT % 40.4 % (42.8-82.8); PLATELET COUNT 346 10^3/uL (134-434); RBC 3.69 M/mm3 (4.00-5.60); RDW 21.3 % (11.9-15.9); WHITE BLOOD COUNT 3.7 K/mm3 (4.0-10.0)
[2022-12-10 22:14] LABS: POTASSIUM 5.7 mmol/L (3.5-5.1)
[2022-12-10 22:17] LABS: CALCIUM 8.7 mg/dL (8.5-10.1)
[2022-12-10 22:18] LABS: ALBUMIN 3.5 g/dl (3.4-5.0); BLOOD UREA NITROGEN 7.4 mg/dL (7-18)
[2022-12-10 22:20] LABS: CREATININE 0.7 mg/dL (0.55-1.3)
[2022-12-10 22:22] LABS: BILIRUBIN,TOTAL 1.1 mg/dL (0.2-1); TOT PROT 9.6 g/dl (6.4-8.2)
[2022-12-10 22:32] LABS: ANISOCYTOSIS 2+; MACROCYTOSIS 1+
[2022-12-11 00:11] LABS: POTASSIUM 3.6 mmol/L (3.5-5.1)
[2022-12-11 00:12] LABS: CALCIUM 8.2 mg/dL (8.5-10.1)
[2022-12-11 00:13] LABS: BLOOD UREA NITROGEN 6.5 mg/dL (7-18)
[2022-12-11 00:16] LABS: CREATININE 0.6 mg/dL (0.55-1.3)
[2022-12-11] MEDS ORDERED: FAMOTIDINE 20 MG/50 ML IVPB 20 MG/50 ML MG IVPB ONE ×2 (02:10→03:43)
[2022-12-11] MEDS ORDERED: ONDANSETRON 4 MG/2 ML VIAL IVPUSH ONE (02:10)
[2022-12-11] MEDS ORDERED: morphine SULFATE 4 MG/ML VIAL IVPUSH ONE (02:10)
[2022-12-11] MEDS ORDERED: LORazepam 2 MG/ML SDV VIAL IVPUSH PRN ×2 (03:01→12:08)
[2022-12-11] MEDS ORDERED: ONDANSETRON 4 MG/2 ML VIAL ONE ×2 (03:43→11:21)
[2022-12-11] MEDS ORDERED: FOLIC ACID INJECTION - 1 MG, THIAMINE HCL 100 MG, MULTIVIT INJECTION ADULT 10 ML in SOD... IVPB ONE (04:00)
[2022-12-11] MEDS ORDERED: metroNIDAZOLE 500 MG TABLET PO SCH ×2 (05:15→12:00)
[2022-12-11] MEDS ORDERED: metroNIDAZOLE 250 MG TABLET ONE (05:20)
[2022-12-11] MEDS ORDERED: BUPIVACAINE HCL/PF 0.25% (2.5MG/ML) 10 ML VIAL ONE (07:48)
[2022-12-11 07:52] LABS: BASO % 0.8 % (0-2.0); HEMOGLOBIN 8.6 GM/dL (11.7-16.9); MCH 27.2 pg (25.7-33.7); MCHC 31.9 g/dl (32.0-35.9); MEAN CELL VOLUME 85.1 fl (80-96); MEAN PLT VOLUME 7.8 fl (7.5-11.1); MONO % 7.8 % (3.8-10.2); NEUT % 52.4 % (42.8-82.8); PLATELET COUNT 240 10^3/uL (134-434); RBC 3.17 M/mm3 (4.00-5.60); RDW 20.8 % (11.9-15.9); WHITE BLOOD COUNT 2.2 K/mm3 (4.0-10.0)
[2022-12-11 08:10] LABS: POTASSIUM 3.8 mmol/L (3.5-5.1)
[2022-12-11 08:13] LABS: CALCIUM 8.3 mg/dL (8.5-10.1)
[2022-12-11 08:15] LABS: BLOOD UREA NITROGEN 5.7 mg/dL (7-18); MAGNESIUM 1.2 mg/dL (1.8-2.4)
[2022-12-11] MEDS ORDERED: LACTATED RINGERS SOLUTION 1,000 ML/1,000 ML INFUS.BAG IV SCH (08:15)
[2022-12-11 08:17] LABS: PHOSPHOROUS 2.9 mg/dL (2.5-4.9)
[2022-12-11 08:18] LABS: CREATININE 0.7 mg/dL (0.55-1.3)
[2022-12-11 08:19] LABS: BILIRUBIN,TOTAL 0.9 mg/dL (0.2-1); TOT PROT 8.1 g/dl (6.4-8.2)
[2022-12-11 08:22] LABS: INR 1.12 (0.83-1.09)
[2022-12-11] MEDS ORDERED: MAGNESIUM SULF 50% (8.12 MEQ/2 ML-1 GM VIAL) IVPB ONE (08:30)
[2022-12-11] MEDS ORDERED: MAGNESIUM SULFATE IN WATER 2 GM/50 ML IVPB IVPB ONE (09:29)
[2022-12-11] MEDS ORDERED: KETOROLAC TROMETHAMINE 30 MG/1 ML VIAL IVPUSH PRN (09:48)
[2022-12-11 10:00] LABS: URINE AMPHETAMINES NEGATIVE (NEGATIVE)
[2022-12-11] MEDS ORDERED: ENOXAPARIN NA (PORCINE) 40 MG/0.4 ML DISP.SYRIN SQ SCH (10:00)
[2022-12-11] MEDS ORDERED: BICTEGRAV/EMTRICIT/TENOFOV (BIKTARVY) 50-200-25 MG TABLET PO SCH (10:00)
[2022-12-11] MEDS ORDERED: THIAMINE HCL 200 MG/2 ML VIAL IVPB SCH (10:00)
[2022-12-11] MEDS ORDERED: FOLIC ACID 1 MG TABLET (FP) PO SCH (10:00)
[2022-12-11] MEDS ORDERED: CEFTRIAXONE 1,000 MG in DEXTROSE 5%-WATER - 50 ML IVPB SCH (10:00)
[2022-12-11 10:01] LABS: COCAINE, UR NEGATIVE (NEGATIVE); PHENCYCLIDINE,URINE NEGATIVE (NEGATIVE); URINE BARBITURATES NEGATIVE (NEGATIVE)
[2022-12-11 10:06] LABS: URINE APPEARANCE CLEAR; URINE BILIRUBIN SMALL (NEGATIVE); URINE COLOR DK YELLOW; URINE GLUCOSE (UA) NEGATIVE (NEGATIVE); URINE KETONE 15 mg/dl (NEGATIVE)
[2022-12-11 10:07] LABS: URINE LEUK ESTERASE TRACE (NEGATIVE); URINE NITRITE NEGATIVE (NEGATIVE); URINE PROTEIN 2+ (NEGATIVE)
[2022-12-11 10:35] LABS: METHADONE, UR NEGATIVE (NEGATIVE); OPIATES, URI POSITIVE (NEGATIVE); URINE BENZODIAZEPINES POSITIVE (NEGATIVE)
[2022-12-11] MEDS ORDERED: CEFOXITIN SODIUM 2 GM IVPB ONE (10:47)
[2022-12-11 11:01] LABS: ACTIVATED PTT 31.2 SECONDS (25.2-36.5)
[2022-12-11] MEDS ORDERED: ROCURONIUM BROMIDE 50 MG/5 ML SYRINGE ONE (11:05)
[2022-12-11] MEDS ORDERED: PROPOFOL 40 ML ONE (11:05)
[2022-12-11] MEDS ORDERED: MIDAZOLAM HCL 2 MG/2 ML SINGLE DOSE VIAL ONE (11:05)
[2022-12-11] MEDS ORDERED: HYDROmorphone HCl 2 MG/ML VIAL ONE (11:05)
[2022-12-11] MEDS ORDERED: SUCCINYLCHOLINE CHLORIDE 200 MG/10 ML SYRINGE ONE (11:11)
[2022-12-11] MEDS ORDERED: DEXAMETHASONE SOD PHOSPHATE 4 MG/1 ML VIAL ONE (11:21)
[2022-12-11] MEDS ORDERED: cefOXitin SODIUM 2 GM VIAL (RESTRICTED TO ID) IVPB ONE (11:23)
[2022-12-11] MEDS ORDERED: BUPIVACAINE HCL/PF 0.25% (2.5MG/ML) 10 ML VIAL IJ ONE ×2 (11:35)
[2022-12-11] MEDS ORDERED: GLYCOPYRROLATE 0.2 MG/1 ML VIAL ONE (11:56)
[2022-12-11] MEDS ORDERED: NEOSTIGMINE METHYLSULFATE 0.5 MG/1 ML - 10 ML MDV ONE (11:56)
[2022-12-11] MEDS ORDERED: oxyCODONE HCL 5 MG TABLET PO PRN ×2 (12:32→13:36)
[2022-12-11] MEDS: LACTATED RINGERS SOLUTION 1,000 ML/1,000 ML INFUS.BAG IV SCH (13:40)
[2022-12-11] MEDS: LORazepam 2 MG/ML SDV VIAL IVPUSH PRN (17:57)
[2022-12-11] MEDS: KETOROLAC TROMETHAMINE 30 MG/1 ML VIAL IVPUSH PRN (20:06)
[2022-12-12] MEDS: LORazepam 2 MG/ML SDV VIAL IVPUSH PRN ×3 (01:41→22:30)
[2022-12-12] MEDS: KETOROLAC TROMETHAMINE 30 MG/1 ML VIAL IVPUSH PRN (08:18)
[2022-12-12] MEDS: FOLIC ACID 1 MG TABLET (FP) PO SCH (09:26)
[2022-12-12] MEDS: BICTEGRAV/EMTRICIT/TENOFOV (BIKTARVY) 50-200-25 MG TABLET PO SCH (09:26)
[2022-12-12 09:54] LABS: BASO % 0.5 % (0-2.0); EOS % 0.1 % (0-4.5); HEMATOCRIT 20.5 % (35.4-49); LYMPH % 27.6 % (8-40); MCH 27.6 pg (25.7-33.7); MCHC 32.7 g/dl (32.0-35.9); MEAN CELL VOLUME 84.5 fl (80-96); MEAN PLT VOLUME 7.7 fl (7.5-11.1); MONO % 5.8 % (3.8-10.2); PLATELET COUNT 166 10^3/uL (134-434); RBC 2.43 M/mm3 (4.00-5.60); RDW 20.7 % (11.9-15.9); WHITE BLOOD COUNT 2.7 K/mm3 (4.0-10.0)
[2022-12-12 09:59] LABS: INR 1.1 (0.83-1.09); PROTHROMBIN TIME (PATIENT) 12.8 SEC (9.7-13.0)
[2022-12-12] MEDS ORDERED: THIAMINE HCL 200 MG/2 ML VIAL IVPB SCH (10:00)
[2022-12-12 10:21] LABS: POTASSIUM 4.1 mmol/L (3.5-5.1)
[2022-12-12 10:22] LABS: ALBUMIN 2.8 g/dl (3.4-5.0); BLOOD UREA NITROGEN 10.5 mg/dL (7-18)
[2022-12-12 10:24] LABS: MAGNESIUM 1.2 mg/dL (1.8-2.4)
[2022-12-12 10:26] LABS: CREATININE 0.9 mg/dL (0.55-1.3); PHOSPHOROUS 3.3 mg/dL (2.5-4.9)
[2022-12-12 10:27] LABS: BILIRUBIN,TOTAL 1.3 mg/dL (0.2-1); TOT PROT 7.4 g/dl (6.4-8.2)
[2022-12-12 10:33] LABS: HEMOGLOBIN 6.7 GM/dL (11.7-16.9)
[2022-12-12] MEDS ORDERED: CYANOCOBALAMIN (VITAMIN B-12) 100 MCG TABLET PO SCH (11:00)
[2022-12-12] MEDS: PANTOPRAZOLE 40 MG TABLET PO SCH (12:08)
[2022-12-12 12:36] LABS: BASO % 0.4 % (0-2.0); EOS % 0.2 % (0-4.5); HEMATOCRIT 20.8 % (35.4-49); MCH 27.6 pg (25.7-33.7); MCHC 32.4 g/dl (32.0-35.9); MEAN CELL VOLUME 85.2 fl (80-96); MEAN PLT VOLUME 7.7 fl (7.5-11.1); MONO % 5.3 % (3.8-10.2); NEUT % 65.1 % (42.8-82.8); PLATELET COUNT 164 10^3/uL (134-434); RBC 2.45 M/mm3 (4.00-5.60); RDW 20.9 % (11.9-15.9); WHITE BLOOD COUNT 2.9 K/mm3 (4.0-10.0)
[2022-12-12 12:46] LABS: HEMOGLOBIN 6.8 GM/dL (11.7-16.9)
[2022-12-12] MEDS: LACTATED RINGERS SOLUTION 1,000 ML/1,000 ML INFUS.BAG IV SCH (13:30)
[2022-12-12] MEDS ORDERED: MAGNESIUM 2GM/50ML STERILE WATER IVPB IVPB ONE (15:30)
[2022-12-12] MEDS: oxyCODONE HCL 5 MG TABLET PO PRN ×2 (16:09→21:37)
[2022-12-12] MEDS: MAGNESIUM OXIDE 400 MG TABLET (FP) PO SCH (21:21)
[2022-12-13] MEDS: MAGNESIUM OXIDE 400 MG TABLET (FP) PO SCH (09:41)
[2022-12-13] MEDS: FOLIC ACID 1 MG TABLET (FP) PO SCH (09:41)
[2022-12-13] MEDS: PANTOPRAZOLE 40 MG TABLET PO SCH (09:41)
[2022-12-13] MEDS: oxyCODONE HCL 5 MG TABLET PO PRN (09:42)
[2022-12-13] MEDS: BICTEGRAV/EMTRICIT/TENOFOV (BIKTARVY) 50-200-25 MG TABLET PO SCH (09:43)
[2022-12-13] MEDS ORDERED: THIAMINE HCL 100 MG TABLET (FP) PO SCH (10:00)
[2022-12-13 11:07] LABS: BASO % 0.3 % (0-2.0); EOS % 1.2 % (0-4.5); HEMATOCRIT 25.4 % (35.4-49); HEMOGLOBIN 8.6 GM/dL (11.7-16.9); LYMPH % 17.9 % (8-40); MCH 28.8 pg (25.7-33.7); MCHC 33.9 g/dl (32.0-35.9); MEAN PLT VOLUME 7.8 fl (7.5-11.1); NEUT % 77.6 % (42.8-82.8); PLATELET COUNT 154 10^3/uL (134-434); RBC 2.99 M/mm3 (4.00-5.60); RDW 19.4 % (11.9-15.9); WHITE BLOOD COUNT 3.7 K/mm3 (4.0-10.0)
[2022-12-13] MEDS ORDERED: LORazepam 0.5 MG TABLET PO ONE (12:15)
[2022-12-13 13:23] VITALS: BP 127/84; PULSE 96
[2022-12-13 13:38] VITALS: RESP 18; TEMP 98.3
== END 2022-12-13 15:30 | disposition home or self-care (01) | DRG 225 ==
LOC: JER 18:17 → JERBED 12-11 01:31 → J8W 12-11 15:55
PROVIDERS: ADMIT Internal Medicine; ATTEND Nurse Practitioner Family
PROC: 0DTJ4ZZ Resection of Appendix, Percutaneous Endoscopic Approach (ICD-10-PCS; principal; 2022-12-11 11:30)
PROC: 30233N1 Transfusion of Nonautologous Red Blood Cells into Peripheral Vein, Percutaneous Approach (ICD-10-PCS; 2022-12-12)
DX: K38.8 Other specified diseases of appendix (principal); K70.30 Alcoholic cirrhosis of liver without ascites; R74.01 Elevation of levels of liver transaminase levels; D62 Acute posthemorrhagic anemia; B20 Human immunodeficiency virus [HIV] disease; K66.0 Peritoneal adhesions (postprocedural) (postinfection); F10.10 Alcohol abuse, uncomplicated; F19.10 Other psychoactive substance abuse, uncomplicated
CPT/HCPCS: 36415; 36430; 70450-TC; 74177-TC; 80048; 80053; 80307; 81003; 82272; 83690; 83735; 84100; 85025; 85610; 85730; 86850; 86900; 86901; 86922; 87086; 88304-TC; 93005; 93010; 94010; 94760; 99285-25; P9058; Q9967

== ENCOUNTER 2023-01-10 22:22 | Inpatient (IN) | payer OTHER ==
[2023-01-10] MEDS ORDERED: LORazepam 2 MG/ML SDV VIAL IM ONE (22:27)
[2023-01-10 22:43] VITALS: BMI 25.8
[2023-01-10] MEDS ORDERED: IBUPROFEN 400 MG TABLET (FP) PO PRN (22:55)
[2023-01-10] MEDS ORDERED: ACETAMINOPHEN 325 MG TABLET (FP) PO PRN (22:55)
[2023-01-10] MEDS ORDERED: BENZOCAINE/MENTHOL (CHLORASEPTIC ) LOZENGE MM PRN (22:55)
[2023-01-10] MEDS ORDERED: BENZONATATE 200 MG CAPSULE PO PRN (22:55)
[2023-01-10] MEDS ORDERED: MAG HYDROX/AL HYDROX/SIMETH 30 ML UNIT-DOSE CUP PO PRN (22:55)
[2023-01-10] MEDS ORDERED: guaiFENesin 600 MG TABLET.ER (FP) PO PRN (22:55)
[2023-01-10] MEDS ORDERED: LOPERAMIDE HCL 2 MG CAPSULE PO PRN (22:55)
[2023-01-10] MEDS ORDERED: P-EPHED 60MG/TRIPROLIDI 2.5MG TABLET PO PRN (22:55)
[2023-01-10] MEDS ORDERED: BISMUTH SUBSALICYLATE 524 MG/30 ML PO PRN (22:55)
[2023-01-10] MEDS ORDERED: DICYCLOMINE HCL 10 MG CAPSULE PO PRN (22:55)
[2023-01-10] MEDS ORDERED: MAGNESIUM HYDROX 2400MG/30ML ORAL SUSPENSION 30 ML CUP PO PRN (22:55)
[2023-01-10] MEDS ORDERED: ONDANSETRON *ODT* 4 MG TABLET SL PRN (22:55)
[2023-01-10] MEDS ORDERED: POLYETHYLENE GLYCOL (HEALTHYLAX) 3350 17 GM PACKET PO PRN (22:55)
[2023-01-10] MEDS ORDERED: LORazepam 1 MG TABLET PO PRN (22:57)
[2023-01-11] MEDS: LORazepam 2 MG TABLET PO SCH ×5 (06:00→22:14)
[2023-01-11] MEDS: levETIRAcetam 500 MG TABLET (FP) PO SCH ×3 (06:02→22:13)
[2023-01-11] MEDS ORDERED: LORazepam 2 MG TABLET ONE (06:08)
[2023-01-11] MEDS: PRENATAL VITAMINS W/ FOLIC ACID TABLET (FP) PO SCH (10:37)
[2023-01-11 12:16] LABS: BLOOD UREA NITROGEN 8.6 mg/dL (7-18); CALCIUM 8.4 mg/dL (8.5-10.1)
[2023-01-11 12:17] LABS: ALBUMIN 3.3 g/dl (3.4-5.0)
[2023-01-11 12:21] LABS: BILIRUBIN,TOTAL 0.7 mg/dL (0.2-1); TOT PROT 8.4 g/dl (6.4-8.2)
[2023-01-11 12:29] LABS: HEMATOCRIT 27.4 % (35.4-49); HEMOGLOBIN 9.3 GM/dL (11.7-16.9); MCH 30.3 pg (25.7-33.7); MCHC 33.9 g/dl (32.0-35.9); MEAN CELL VOLUME 89.4 fl (80-96); MEAN PLT VOLUME 7.9 fl (7.5-11.1); PLATELET COUNT 174 10^3/uL (134-434); RBC 3.06 M/mm3 (4.00-5.60)
[2023-01-11 12:32] LABS: WHITE BLOOD COUNT 1.9 K/mm3 (4.0-10.0)
[2023-01-11] MEDS: BICTEGRAV/EMTRICIT/TENOFOV (BIKTARVY) 50-200-25 MG TABLET PO SCH (15:48)
[2023-01-11] MEDS: hydrOXYzine PAMOATE 25 MG CAPSULE (FP) PO PRN (17:47)
[2023-01-11] MEDS: METHOCARBAMOL 500 MG TABLET PO PRN (17:47)
[2023-01-11] MEDS: THIAMINE HCL 100 MG TABLET (FP) PO SCH (22:13)
[2023-01-11] MEDS: MELATONIN 5 MG TABLETS PO SCH (22:14)
[2023-01-12] MEDS: LORazepam 1 MG TABLET PO SCH ×4 (05:39→22:14)
[2023-01-12 09:41] LABS: BASO % 0.7 % (0-2.0); EOS % 1.8 % (0-4.5); HEMATOCRIT 27.1 % (35.4-49); HEMOGLOBIN 8.8 GM/dL (11.7-16.9); LYMPH % 39.9 % (8-40); MCH 29.6 pg (25.7-33.7); MCHC 32.4 g/dl (32.0-35.9); MEAN CELL VOLUME 91.3 fl (80-96); MEAN PLT VOLUME 7.9 fl (7.5-11.1); MONO % 9.6 % (3.8-10.2); PLATELET COUNT 127 10^3/uL (134-434); RBC 2.97 M/mm3 (4.00-5.60); RDW 22.5 % (11.9-15.9)
[2023-01-12 09:47] LABS: WHITE BLOOD COUNT 1.4 K/mm3 (4.0-10.0)
[2023-01-12] MEDS: levETIRAcetam 500 MG TABLET (FP) PO SCH ×2 (10:10→22:14)
[2023-01-12] MEDS: METHOCARBAMOL 500 MG TABLET PO PRN (10:10)
[2023-01-12] MEDS: PRENATAL VITAMINS W/ FOLIC ACID TABLET (FP) PO SCH (10:10)
[2023-01-12] MEDS: hydrOXYzine PAMOATE 25 MG CAPSULE (FP) PO PRN ×2 (10:11→22:15)
[2023-01-12] MEDS: BICTEGRAV/EMTRICIT/TENOFOV (BIKTARVY) 50-200-25 MG TABLET PO SCH (10:11)
[2023-01-12 10:51] LABS: ANISOCYTOSIS 1+; MACROCYTOSIS 1+
[2023-01-12] MEDS: IBUPROFEN 600 MG TABLET (FP) PO PRN ×2 (11:03→19:20)
[2023-01-12 21:19] VITALS: RESP 16
[2023-01-12] MEDS: THIAMINE HCL 100 MG TABLET (FP) PO SCH (22:14)
[2023-01-12] MEDS: MELATONIN 5 MG TABLETS PO SCH (22:15)
[2023-01-12] MEDS ORDERED: cloNIDine HCL 0.1 MG TABLET PO ONE (23:04)
[2023-01-13] MEDS ORDERED: LORazepam 0.5 MG TABLET PO PRN
[2023-01-13] MEDS: LORazepam 0.5 MG TABLET PO SCH ×3 (05:25→16:46)
[2023-01-13] MEDS: PRENATAL VITAMINS W/ FOLIC ACID TABLET (FP) PO SCH (10:11)
[2023-01-13] MEDS: BICTEGRAV/EMTRICIT/TENOFOV (BIKTARVY) 50-200-25 MG TABLET PO SCH (10:11)
[2023-01-13] MEDS: levETIRAcetam 500 MG TABLET (FP) PO SCH (10:12)
[2023-01-13] MEDS: IBUPROFEN 600 MG TABLET (FP) PO PRN (15:24)
[2023-01-13] MEDS ORDERED: PENICILLIN G BENZATHINE 2,400,000 UNIT/4 ML PFS IM ONE (16:15)
[2023-01-13 17:12] VITALS: BP 138/90; PULSE 80; TEMP 97.8
[2023-01-14] MEDS ORDERED: LORazepam 0.5 MG TABLET PO ONE (05:00)
== END 2023-01-13 18:52 | disposition home or self-care (01) | DRG 775 ==
LOC: YASAS 22:22 → Y6N 23:40
PROVIDERS: ADMIT Allergy & Immunology; ATTEND Surgery
PROC: HZ2ZZZZ Detoxification Services for Substance Abuse Treatment (ICD-10-PCS; principal; 2023-01-10)
DX: F10.230 Alcohol dependence with withdrawal, uncomplicated (principal); F10.282 Alcohol dependence with alcohol-induced sleep disorder; F10.24 Alcohol dependence with alcohol-induced mood disorder; F10.220 Alcohol dependence with intoxication, uncomplicated; Z21 Asymptomatic human immunodeficiency virus [HIV] infection status; G40.909 Epilepsy, unspecified, not intractable, without status epilepticus; R26.89 Other abnormalities of gait and mobility; R76.8 Other specified abnormal immunological findings in serum; Z86.19 Personal history of other infectious and parasitic diseases; Z87.19 Personal history of other diseases of the digestive system; Z91.81 History of falling
CPT/HCPCS: 36415; 80053; 85025; 85027; 86593; 86780; 87635

== ENCOUNTER 2023-03-16 04:45 | Inpatient (IN) | payer OTHER ==
[2023-03-16] MEDS ORDERED: ONDANSETRON *ODT* 4 MG TABLET SL PRN (06:42)
[2023-03-16] MEDS ORDERED: BISMUTH SUBSALICYLATE 524 MG/30 ML PO PRN (06:42)
[2023-03-16] MEDS ORDERED: NALOXONE HCL (KLOXXADO) 8 MG SPRAY NS PRN (06:42)
[2023-03-16] MEDS ORDERED: NALOXONE HCL 0.4 MG/ML VIAL IM PRN (06:42)
[2023-03-16] MEDS ORDERED: DICYCLOMINE HCL 10 MG CAPSULE PO PRN (06:42)
[2023-03-16] MEDS ORDERED: guaiFENesin 600 MG TABLET.ER (FP) PO PRN (06:42)
[2023-03-16] MEDS ORDERED: IBUPROFEN 600 MG TABLET (FP) PO PRN (06:42)
[2023-03-16] MEDS ORDERED: BENZOCAINE/MENTHOL (CHLORASEPTIC ) LOZENGE MM PRN (06:42)
[2023-03-16] MEDS ORDERED: POLYETHYLENE GLYCOL (HEALTHYLAX) 3350 17 GM PACKET PO PRN (06:42)
[2023-03-16] MEDS ORDERED: LOPERAMIDE HCL 2 MG CAPSULE PO PRN (06:42)
[2023-03-16] MEDS ORDERED: MAG HYDROX/AL HYDROX/SIMETH 30 ML UNIT-DOSE CUP PO PRN (06:42)
[2023-03-16] MEDS ORDERED: MAGNESIUM HYDROX 2400MG/30ML ORAL SUSPENSION 30 ML CUP PO PRN (06:42)
[2023-03-16] MEDS ORDERED: BENZONATATE 200 MG CAPSULE PO PRN (06:42)
[2023-03-16] MEDS ORDERED: IBUPROFEN 400 MG TABLET (FP) PO PRN (06:42)
[2023-03-16 07:41] VITALS: BMI 25.8
[2023-03-16] MEDS ORDERED: diazePAM 5 MG TABLET ONE (09:50)
[2023-03-16] MEDS ORDERED: PRENATAL VITAMINS W/ FOLIC ACID TABLET (FP) PO ONE (09:50)
[2023-03-16] MEDS: PRENATAL VITAMINS W/ FOLIC ACID TABLET (FP) PO SCH (09:55)
[2023-03-16] MEDS: diazePAM 5 MG TABLET PO PRN (09:55)
[2023-03-16] MEDS ORDERED: LORazepam 2 MG/ML SDV VIAL IM ONE (10:30)
[2023-03-16] MEDS: BICTEGRAV/EMTRICIT/TENOFOV (BIKTARVY) 50-200-25 MG TABLET PO SCH (11:53)
[2023-03-16] MEDS: diazePAM 5 MG TABLET PO SCH ×3 (11:55→22:17)
[2023-03-16] MEDS ORDERED: cloNIDine HCL 0.1 MG TABLET PO ONE (19:45)
[2023-03-16] MEDS: THIAMINE HCL 100 MG TABLET (FP) PO SCH (22:16)
[2023-03-16] MEDS: MELATONIN 5 MG TABLETS PO SCH (22:16)
[2023-03-16] MEDS: METHOCARBAMOL 500 MG TABLET PO PRN (22:17)
[2023-03-17] MEDS: diazePAM 5 MG TABLET PO SCH ×4 (05:55→21:59)
[2023-03-17] MEDS ORDERED: diphenhydrAMINE HCL 25 MG CAPSULE (FP) PO ONE (10:00)
[2023-03-17] MEDS: PRENATAL VITAMINS W/ FOLIC ACID TABLET (FP) PO SCH (10:11)
[2023-03-17] MEDS: BICTEGRAV/EMTRICIT/TENOFOV (BIKTARVY) 50-200-25 MG TABLET PO SCH (10:11)
[2023-03-17 11:31] LABS: HEMATOCRIT 25.7 % (35.4-49); HEMOGLOBIN 8.2 GM/dL (11.7-16.9); MCH 28.6 pg (25.7-33.7); MEAN CELL VOLUME 89.5 fl (80-96); MEAN PLT VOLUME 8.4 fl (7.5-11.1); PLATELET COUNT 155 10^3/uL (134-434); RBC 2.87 M/mm3 (4.00-5.60); RDW 20.8 % (11.9-15.9)
[2023-03-17 13:22] LABS: CHLORIDE 99 mmol/L (98-107); POTASSIUM 3.5 mmol/L (3.5-5.1); SODIUM 134 mmol/L (136-145)
[2023-03-17 13:27] LABS: ALBUMIN 3.1 g/dl (3.4-5.0); ANION GAP 8 mmol/L (4-13); BLOOD UREA NITROGEN 8.8 mg/dL (7-18); CO2 27 mmol/L (21-32); GLUCOSE,RANDOM 66 mg/dL (74-106)
[2023-03-17 13:30] LABS: CREATININE 0.8 mg/dL (0.55-1.3); SGOT/AST 104 U/L (15-37); SGPT/ALT 48 U/L (13-61)
[2023-03-17 13:32] LABS: BILIRUBIN,TOTAL 2.2 mg/dL (0.2-1); TOT PROT 7.4 g/dl (6.4-8.2)
[2023-03-17 13:33] LABS: ALK PHOS 183 U/L (45-117)
[2023-03-17] MEDS: THIAMINE HCL 100 MG TABLET (FP) PO SCH (21:57)
[2023-03-17] MEDS: MELATONIN 5 MG TABLETS PO SCH (21:57)
[2023-03-17] MEDS: METHOCARBAMOL 500 MG TABLET PO PRN (21:57)
[2023-03-18] MEDS: ACETAMINOPHEN 325 MG TABLET (FP) PO PRN ×2 (02:56→10:31)
[2023-03-18] MEDS: diazePAM 5 MG TABLET PO SCH ×3 (05:54→22:44)
[2023-03-18] MEDS: PRENATAL VITAMINS W/ FOLIC ACID TABLET (FP) PO SCH (10:30)
[2023-03-18] MEDS: BICTEGRAV/EMTRICIT/TENOFOV (BIKTARVY) 50-200-25 MG TABLET PO SCH (10:31)
[2023-03-18] MEDS: diazePAM 5 MG TABLET PO PRN ×2 (10:35→18:46)
[2023-03-18] MEDS: METHOCARBAMOL 500 MG TABLET PO PRN ×2 (10:36→17:08)
[2023-03-18] MEDS ORDERED: ALBUTEROL SO4 2.5/IPRATROPIUM 0.5 INH SOL 3 ML VIAL.NEB. NEB ONE (10:46)
[2023-03-18] MEDS ORDERED: PENICILLIN G BENZATHINE 2,400,000 UNIT/4 ML PFS IM ONE (14:30)
[2023-03-18] MEDS ORDERED: ASPIRIN 325 MG ENTERIC COATED TABLET (FP) PO ONE (17:16)
[2023-03-18] MEDS: MELATONIN 5 MG TABLETS PO SCH (22:44)
[2023-03-18] MEDS: THIAMINE HCL 100 MG TABLET (FP) PO SCH (22:44)
[2023-03-18] MEDS: OSELTAMIVIR PHOSPHATE 75 MG CAPSULE PO SCH (22:45)
[2023-03-18] MEDS: guaiFENesin 200 MG/10 ML 10 ML UNIT-DOSE CUPS PO PRN (23:45)
[2023-03-19] MEDS: diazePAM 5 MG TABLET PO PRN (03:57)
[2023-03-19] MEDS ORDERED: diazePAM 5 MG TABLET PO SCH (06:00)
[2023-03-19] MEDS: OSELTAMIVIR PHOSPHATE 75 MG CAPSULE PO SCH (10:37)
[2023-03-19] MEDS: METHOCARBAMOL 500 MG TABLET PO PRN (10:37)
[2023-03-19] MEDS: PRENATAL VITAMINS W/ FOLIC ACID TABLET (FP) PO SCH (10:37)
[2023-03-19] MEDS: BICTEGRAV/EMTRICIT/TENOFOV (BIKTARVY) 50-200-25 MG TABLET PO SCH (10:37)
[2023-03-19] MEDS: guaiFENesin 200 MG/10 ML 10 ML UNIT-DOSE CUPS PO PRN (10:46)
[2023-03-19 18:03] VITALS: BP 114/74; PULSE 99; RESP 141; TEMP 98.9
[2023-03-20] MEDS ORDERED: diazePAM 5 MG TABLET PO ONE (06:00)
== END 2023-03-19 18:20 | disposition left against medical advice (07) | DRG 770 ==
LOC: YASAS 04:45 → Y3N 08:54
PROVIDERS: ADMIT Allergy & Immunology; ATTEND Surgery
PROC: HZ2ZZZZ Detoxification Services for Substance Abuse Treatment (ICD-10-PCS; principal; 2023-03-16)
DX: F10.230 Alcohol dependence with withdrawal, uncomplicated (principal); Z21 Asymptomatic human immunodeficiency virus [HIV] infection status; K70.30 Alcoholic cirrhosis of liver without ascites; D64.9 Anemia, unspecified; Z87.891 Personal history of nicotine dependence; Z86.19 Personal history of other infectious and parasitic diseases; Z87.19 Personal history of other diseases of the digestive system
CPT/HCPCS: 0241U-QW; 36415; 70450-TC; 71046-TC-FY; 72125-TC; 80053; 80307; 81003; 82550; 82553; 82962; 84484; 85025; 85027; 86593; 86780; 87086; 87635; 93005; 93010; 94640; Q0162

== ENCOUNTER 2023-03-16 10:46 | Emergency (ER) | payer OTHER ==
[2023-03-16 11:33] VITALS: RESP 17; BMI 26.6
[2023-03-16] MEDS ORDERED: FAMOTIDINE 20 MG/50 ML IVPB 20 MG in PREMIX 50 IVPB ONE (11:35)
[2023-03-16] MEDS ORDERED: ONDANSETRON 4 MG/2 ML VIAL IVPB ONE (11:35)
[2023-03-16] MEDS ORDERED: ACETAMINOPHEN 1000 MG/100 ML BAG IVPB ONE (11:35)
[2023-03-16] MEDS ORDERED: ONDANSETRON 4 MG/2 ML VIAL ONE (11:56)
[2023-03-16] MEDS ORDERED: FAMOTIDINE 20 MG/50 ML IVPB 20 MG/50 ML MG IVPB ONE (11:56)
[2023-03-16] MEDS ORDERED: ACETAMINOPHEN INJECTION 100 ML IVPB ONE (11:56)
[2023-03-16 11:59] LABS: BASO % 0.7 % (0-2.0); EOS % 0.1 % (0-4.5); HEMATOCRIT 30.2 % (35.4-49); HEMOGLOBIN 9.9 GM/dL (11.7-16.9); LYMPH % 15.1 % (8-40); MCH 29.2 pg (25.7-33.7); MCHC 32.8 g/dl (32.0-35.9); MEAN CELL VOLUME 89.1 fl (80-96); MEAN PLT VOLUME 7.5 fl (7.5-11.1); MONO % 3.3 % (3.8-10.2); NEUT % 80.8 % (42.8-82.8); PLATELET COUNT 203 10^3/uL (134-434); WHITE BLOOD COUNT 2.8 K/mm3 (4.0-10.0)
[2023-03-16] MEDS ORDERED: ONDANSETRON 4 MG TABLET PO ONE (12:09)
[2023-03-16] MEDS ORDERED: ACETAMINOPHEN 325 MG TABLET (FP) PO ONE (12:10)
[2023-03-16 12:19] LABS: POTASSIUM 3.9 mmol/L (3.5-5.1)
[2023-03-16 12:21] LABS: CALCIUM 9.5 mg/dL (8.5-10.1)
[2023-03-16 12:25] LABS: CREATININE 0.9 mg/dL (0.55-1.3)
[2023-03-16 12:26] LABS: BILIRUBIN,TOTAL 1.8 mg/dL (0.2-1); TOT PROT 9.4 g/dl (6.4-8.2)
[2023-03-16 12:29] LABS: ALBUMIN 3.8 g/dl (3.4-5.0)
[2023-03-16] MEDS ORDERED: FAMOTIDINE 20 MG TABLET ONE (12:47)
[2023-03-16] MEDS ORDERED: FAMOTIDINE 20 MG TABLET PO ONE (12:47)
[2023-03-16] MEDS ORDERED: ONDANSETRON *ODT* 4 MG TABLET ONE (12:48)
[2023-03-16] MEDS ORDERED: ACETAMINOPHEN 325 MG TABLET (FP) ONE (12:48)
[2023-03-16] MEDS: FAMOTIDINE 10 MG TABLET PO ONE ×2 (12:55→12:56)
[2023-03-16 16:31] VITALS: BP 139/91; PULSE 78; TEMP 98
[2023-03-17 06:28] LABS: URINE APPEARANCE CLEAR; URINE BILIRUBIN NEGATIVE (NEGATIVE); URINE COLOR YELLOW; URINE GLUCOSE (UA) NEGATIVE (NEGATIVE); URINE KETONE NEGATIVE (NEGATIVE); URINE LEUK ESTERASE NEGATIVE (NEGATIVE); URINE NITRITE NEGATIVE (NEGATIVE); URINE PROTEIN NEGATIVE (NEGATIVE); URINE UROBILINOGEN 0.2 mg/dL (0.2-1.0)
== END 2023-03-16 16:31 | disposition home or self-care (01) ==
LOC: JER 10:46
DX: R56.9 Unspecified convulsions (principal); R51.9 Headache, unspecified; R11.0 Nausea; R10.30 Lower abdominal pain, unspecified; R19.7 Diarrhea, unspecified
CPT/HCPCS: 36415; 70450-TC; 80053; 81003; 82010; 83690; 85025; 99284-25

== ENCOUNTER 2023-04-15 16:15 | Inpatient (IN) | payer OTHER ==
[2023-04-15] MEDS ORDERED: ACETAMINOPHEN 1000 MG/100 ML BAG IVPB ONE (17:58)
[2023-04-15] MEDS ORDERED: ACETAMINOPHEN INJECTION 100 ML IVPB ONE (18:03)
[2023-04-15 18:45] LABS: BASO % 0.4 % (0-2.0); EOS % 0.1 % (0-4.5); HEMATOCRIT 29.6 % (35.4-49); HEMOGLOBIN 9.4 GM/dL (11.7-16.9); LYMPH % 28.5 % (8-40); MCH 29.7 pg (25.7-33.7); MCHC 31.8 g/dl (32.0-35.9); MEAN CELL VOLUME 93.4 fl (80-96); MEAN PLT VOLUME 7.5 fl (7.5-11.1); MONO % 9.2 % (3.8-10.2); NEUT % 61.8 % (42.8-82.8); PLATELET COUNT 383 10^3/uL (134-434); RBC 3.17 M/mm3 (4.00-5.60); RDW 26.6 % (11.9-15.9); WHITE BLOOD COUNT 4.9 K/mm3 (4.0-10.0)
[2023-04-15 18:49] LABS: EPI CELLS 14 /uL (0-25.1); HYALINE CASTS 5 /uL (0-3.1); URINE APPEARANCE CLEAR; URINE BACTERIA 5 /uL (0-1359); URINE BILIRUBIN 3+ (NEGATIVE); URINE COLOR DK YELLOW; URINE GLUCOSE (UA) NEGATIVE (NEGATIVE); URINE KETONE 3+ (NEGATIVE); URINE LEUK ESTERASE NEGATIVE (NEGATIVE); URINE NITRITE NEGATIVE (NEGATIVE); URINE PROTEIN 3+ (NEGATIVE); URINE WBC 15 /uL (0-25.8)
[2023-04-15 18:52] LABS: INR 1.1 (0.83-1.09); PROTHROMBIN TIME (PATIENT) 12.7 SEC (9.7-13.0)
[2023-04-15 18:55] LABS: ACTIVATED PTT 30.3 SECONDS (25.2-36.5)
[2023-04-15 19:02] LABS: LACTIC ACID 3.3 mmol/L (0.4-2.0)
[2023-04-15 19:28] LABS: URINE RBC 78.2 /uL (0-23.9)
[2023-04-15 19:32] LABS: CHLORIDE 94 mmol/L (98-107); SODIUM 128 mmol/L (136-145)
[2023-04-15 19:34] LABS: BLOOD UREA NITROGEN 8.9 mg/dL (7-18); CO2 14 mmol/L (21-32)
[2023-04-15 19:35] LABS: ALBUMIN 3.4 g/dl (3.4-5.0)
[2023-04-15 19:38] LABS: CREATININE 0.9 mg/dL (0.55-1.3)
[2023-04-15 19:39] LABS: BILIRUBIN,TOTAL 1.8 mg/dL (0.2-1); TOT PROT 9.2 g/dl (6.4-8.2)
[2023-04-15 19:40] LABS: ALK PHOS 197 U/L (45-117)
[2023-04-15] MEDS ORDERED: SODIUM CHLORIDE 0.9% 500 ML INFUS.BAG IV ONE (19:40)
[2023-04-15 19:44] LABS: ANISOCYTOSIS 2+; MACROCYTOSIS 0
[2023-04-15] MEDS ORDERED: FENTANYL CITRATE/PF 50 MCG/ML VIAL ONE (20:38)
[2023-04-15 20:45] LABS: ANION GAP 20 mmol/L (4-13); GLUCOSE,RANDOM 39 mg/dL (74-106); POTASSIUM 6.9 mmol/L (3.5-5.1); SGOT/AST 158 U/L (15-37); SGPT/ALT 50 U/L (13-61)
[2023-04-15] MEDS ORDERED: DEXTROSE 50%-WATER 25 GM/50 ML DISP.SYRIN ONE (20:57)
[2023-04-15] MEDS ORDERED: DEXTROSE 50%-WATER - 25 GM/50 ML VIAL IVPUSH ONE (20:57)
[2023-04-15 21:18] LABS: LACTIC ACID 2.6 mmol/L (0.4-2.0)
[2023-04-15 22:52] LABS: POTASSIUM 3.5 mmol/L (3.5-5.1)
[2023-04-15 22:56] LABS: ALBUMIN 3.1 g/dl (3.4-5.0); BLOOD UREA NITROGEN 7.8 mg/dL (7-18); CALCIUM 8.5 mg/dL (8.5-10.1)
[2023-04-15 22:59] LABS: CREATININE 0.9 mg/dL (0.55-1.3)
[2023-04-15 23:00] LABS: BILIRUBIN,TOTAL 1.6 mg/dL (0.2-1); TOT PROT 7.9 g/dl (6.4-8.2)
[2023-04-16] MEDS ORDERED: LACTATED RINGERS SOLUTION 1000 ML INFUS.BAG IV ONE (00:03)
[2023-04-16] MEDS ORDERED: MAG HYDROX/AL HYDROX/SIMETH 30 ML UNIT-DOSE CUP PO ONE (01:08)
[2023-04-16] MEDS ORDERED: SODIUM CHLORIDE 0.9% 500 ML INFUS.BAG IV ONE (01:30)
[2023-04-16] MEDS ORDERED: LORazepam 1 MG TABLET PO PRN (01:34)
[2023-04-16] MEDS ORDERED: ACETAMINOPHEN 1000 MG/100 ML BAG IVPB PRN (01:38)
[2023-04-16] MEDS ORDERED: morphine CARPU-JECT 2 MG/1 ML DISP.SYRIN IVPUSH PRN (01:39)
[2023-04-16] MEDS ORDERED: MAG HYDROX/AL HYDROX/SIMETH 30 ML UNIT-DOSE CUP ONE (01:44)
[2023-04-16] MEDS ORDERED: LORazepam 1 MG TABLET ONE ×3 (04:51→16:14)
[2023-04-16] MEDS: LORazepam 1 MG TABLET PO SCH ×4 (04:56→22:41)
[2023-04-16 06:55] LABS: BASO % 0.5 % (0-2.0); EOS % 0.8 % (0-4.5); HEMATOCRIT 24.7 % (35.4-49); HEMOGLOBIN 8.2 GM/dL (11.7-16.9); LYMPH % 17.3 % (8-40); MCHC 33.2 g/dl (32.0-35.9); MEAN CELL VOLUME 93.4 fl (80-96); MEAN PLT VOLUME 6.9 fl (7.5-11.1); MONO % 11.6 % (3.8-10.2); NEUT % 69.8 % (42.8-82.8); PLATELET COUNT 221 10^3/uL (134-434); RBC 2.65 M/mm3 (4.00-5.60); RDW 27.3 % (11.9-15.9); WHITE BLOOD COUNT 2.7 K/mm3 (4.0-10.0)
[2023-04-16 07:04] LABS: POTASSIUM 3.8 mmol/L (3.5-5.1)
[2023-04-16 07:06] LABS: ALBUMIN 2.9 g/dl (3.4-5.0); BLOOD UREA NITROGEN 5.8 mg/dL (7-18); CALCIUM 8.2 mg/dL (8.5-10.1); MAGNESIUM 1.4 mg/dL (1.8-2.4)
[2023-04-16 07:09] LABS: CREATININE 0.8 mg/dL (0.55-1.3); PHOSPHOROUS 2.5 mg/dL (2.5-4.9)
[2023-04-16 07:10] LABS: BILIRUBIN,TOTAL 1.9 mg/dL (0.2-1); TOT PROT 7.2 g/dl (6.4-8.2)
[2023-04-16] MEDS ORDERED: ACETAMINOPHEN INJECTION 100 ML IVPB ONE (07:58)
[2023-04-16 08:42] LABS: HIV INTERPRETATION PRESUMPTIVE POSITIVE (NEGATIVE)
[2023-04-16] MEDS: SODIUM CHLORIDE 1,000 ML IV SCH (09:36)
[2023-04-16] MEDS: BICTEGRAV/EMTRICIT/TENOFOV (BIKTARVY) 50-200-25 MG TABLET PO SCH (09:36)
[2023-04-16] MEDS ORDERED: LIDOCAINE 4% PATCH TP ONE (10:10)
[2023-04-16] MEDS: LIDOCAINE 4% PATCH TP SCH (10:18)
[2023-04-16 11:25] LABS: BILIRUBIN,DIRECT 0.8 mg/dL (0.0-0.2)
[2023-04-16] MEDS ORDERED: PANTOPRAZOLE 40 MG TABLET PO ONE (11:37)
[2023-04-16] MEDS: PANTOPRAZOLE 40 MG TABLET PO SCH (11:43)
[2023-04-16 14:17] LABS: BASO % 0.3 % (0-2.0); EOS % 1.1 % (0-4.5); HEMATOCRIT 25.3 % (35.4-49); HEMOGLOBIN 8.2 GM/dL (11.7-16.9); LYMPH % 28.3 % (8-40); MCH 30.2 pg (25.7-33.7); MCHC 32.5 g/dl (32.0-35.9); MEAN CELL VOLUME 93.1 fl (80-96); MEAN PLT VOLUME 6.9 fl (7.5-11.1); MONO % 12.3 % (3.8-10.2); PLATELET COUNT 209 10^3/uL (134-434); RBC 2.71 M/mm3 (4.00-5.60); RDW 26.9 % (11.9-15.9)
[2023-04-16 15:02] LABS: URINE BARBITURATES NEGATIVE (NEGATIVE)
[2023-04-16 15:03] LABS: COCAINE, UR NEGATIVE (NEGATIVE); METHADONE, UR NEGATIVE (NEGATIVE); PHENCYCLIDINE,URINE NEGATIVE (NEGATIVE)
[2023-04-16 15:10] LABS: OPIATES, URI POSITIVE (NEGATIVE); URINE AMPHETAMINES NEGATIVE (NEGATIVE); URINE BENZODIAZEPINES POSITIVE (NEGATIVE)
[2023-04-16] MEDS: LIDOCAINE PATCH REMOVAL MC SCH (22:32)
[2023-04-17] MEDS: LORazepam 1 MG TABLET PO SCH ×4 (04:13→22:33)
[2023-04-17 07:31] LABS: HEMATOCRIT 28.4 % (35.4-49); HEMOGLOBIN 9.3 GM/dL (11.7-16.9); MCH 30.8 pg (25.7-33.7); MCHC 32.9 g/dl (32.0-35.9); MEAN CELL VOLUME 93.4 fl (80-96); MEAN PLT VOLUME 7.1 fl (7.5-11.1); PLATELET COUNT 219 10^3/uL (134-434); RBC 3.04 M/mm3 (4.00-5.60); RDW 27.1 % (11.9-15.9)
[2023-04-17 07:37] LABS: INR 1.08 (0.83-1.09); PROTHROMBIN TIME (PATIENT) 12.5 SEC (9.7-13.0)
[2023-04-17 07:51] LABS: WHITE BLOOD COUNT 1.8 K/mm3 (4.0-10.0)
[2023-04-17 08:00] LABS: POTASSIUM 3.7 mmol/L (3.5-5.1)
[2023-04-17 08:06] LABS: CALCIUM 8.7 mg/dL (8.5-10.1)
[2023-04-17 08:07] LABS: BLOOD UREA NITROGEN 6.8 mg/dL (7-18)
[2023-04-17 08:09] LABS: BILIRUBIN,DIRECT 0.6 mg/dL (0.0-0.2)
[2023-04-17 08:10] LABS: BILIRUBIN,TOTAL 1.3 mg/dL (0.2-1); CREATININE 0.7 mg/dL (0.55-1.3); TOT PROT 7.3 g/dl (6.4-8.2)
[2023-04-17 10:18] LABS: ANISOCYTOSIS 2+; MACROCYTOSIS 0
[2023-04-17] MEDS: PANTOPRAZOLE 40 MG TABLET PO SCH (10:32)
[2023-04-17] MEDS: BICTEGRAV/EMTRICIT/TENOFOV (BIKTARVY) 50-200-25 MG TABLET PO SCH (10:32)
[2023-04-17] MEDS: LIDOCAINE 4% PATCH TP SCH (10:34)
[2023-04-17] MEDS: SODIUM CHLORIDE 1,000 ML IV SCH (11:32)
[2023-04-17] MEDS ORDERED: traMADol HCL 50 MG TABLET PO ONE (13:20)
[2023-04-17] MEDS: FOLIC ACID 1 MG TABLET (FP) PO SCH (15:39)
[2023-04-17] MEDS: THIAMINE HCL 100 MG TABLET (FP) PO SCH (15:39)
[2023-04-17] MEDS ORDERED: POLYETHYLENE GLYCOL (HEALTHYLAX) 3350 17 GM PACKET PO ONE (16:15)
[2023-04-17] MEDS ORDERED: ACETAMINOPHEN 325 MG TABLET (FP) PO PRN (17:30)
[2023-04-17] MEDS: LIDOCAINE PATCH REMOVAL MC SCH (22:08)
[2023-04-18] MEDS ORDERED: LORazepam 0.5 MG TABLET PO PRN
[2023-04-18 00:33] VITALS: BMI 25.7
[2023-04-18] MEDS: LORazepam 0.5 MG TABLET PO SCH ×4 (05:12→23:22)
[2023-04-18 08:28] LABS: BASO % 0.6 % (0-2.0); EOS % 1.2 % (0-4.5); HEMATOCRIT 25.4 % (35.4-49); HEMOGLOBIN 8.6 GM/dL (11.7-16.9); LYMPH % 30.1 % (8-40); MCH 31.9 pg (25.7-33.7); MEAN CELL VOLUME 93.7 fl (80-96); MEAN PLT VOLUME 7.2 fl (7.5-11.1); MONO % 12.6 % (3.8-10.2); NEUT % 55.5 % (42.8-82.8); PLATELET COUNT 229 10^3/uL (134-434); RBC 2.71 M/mm3 (4.00-5.60); RDW 27.2 % (11.9-15.9); WHITE BLOOD COUNT 2.2 K/mm3 (4.0-10.0)
[2023-04-18 08:31] LABS: INR 1.1 (0.83-1.09); PROTHROMBIN TIME (PATIENT) 12.7 SEC (9.7-13.0)
[2023-04-18 08:48] LABS: POTASSIUM 3.7 mmol/L (3.5-5.1)
[2023-04-18 08:56] LABS: CALCIUM 8.6 mg/dL (8.5-10.1)
[2023-04-18 08:57] LABS: ALBUMIN 2.9 g/dl (3.4-5.0); BLOOD UREA NITROGEN 5.8 mg/dL (7-18); MAGNESIUM 1.5 mg/dL (1.8-2.4)
[2023-04-18 09:00] LABS: BILIRUBIN,DIRECT 0.6 mg/dL (0.0-0.2); CREATININE 0.7 mg/dL (0.55-1.3); PHOSPHOROUS 2.3 mg/dL (2.5-4.9)
[2023-04-18 09:01] LABS: BILIRUBIN,TOTAL 1.2 mg/dL (0.2-1); IRON SERUM 22 ug/dL (50-175)
[2023-04-18 09:02] LABS: TOT PROT 7.3 g/dl (6.4-8.2)
[2023-04-18 09:03] LABS: TOTAL IRON BINDING CAPACITY 337 ug/dL (250-450)
[2023-04-18] MEDS: traMADol HCL 50 MG TABLET PO PRN ×3 (09:47→23:22)
[2023-04-18] MEDS: PANTOPRAZOLE 40 MG TABLET PO SCH (09:50)
[2023-04-18] MEDS: THIAMINE HCL 100 MG TABLET (FP) PO SCH (09:50)
[2023-04-18] MEDS: POLYETHYLENE GLYCOL (HEALTHYLAX) 3350 17 GM PACKET PO SCH (09:50)
[2023-04-18] MEDS: FOLIC ACID 1 MG TABLET (FP) PO SCH (09:50)
[2023-04-18] MEDS: BICTEGRAV/EMTRICIT/TENOFOV (BIKTARVY) 50-200-25 MG TABLET PO SCH (09:51)
[2023-04-18] MEDS: LIDOCAINE 4% PATCH TP SCH (09:51)
[2023-04-18] MEDS ORDERED: NAPH,MB-DB/K PH,MBDB POWDER PACKET PO ONE (16:45)
[2023-04-18] MEDS: MAGNESIUM SULF 50% (8.12 MEQ/2 ML-1 GM VIAL) IVPB ONE ×2 (17:26→18:25)
[2023-04-18] MEDS ORDERED: MAGNESIUM OXIDE 400 MG TABLET (FP) PO ONE (18:17)
[2023-04-18] MEDS: LIDOCAINE PATCH REMOVAL MC SCH (21:42)
[2023-04-19] MEDS ORDERED: LORazepam 0.5 MG TABLET PO ONE (05:00)
[2023-04-19 07:12] LABS: BASO % 0.5 % (0-2.0); EOS % 0.9 % (0-4.5); HEMATOCRIT 26.5 % (35.4-49); HEMOGLOBIN 8.8 GM/dL (11.7-16.9); LYMPH % 28.6 % (8-40); MCHC 33.1 g/dl (32.0-35.9); MEAN CELL VOLUME 93.7 fl (80-96); MEAN PLT VOLUME 7.2 fl (7.5-11.1); MONO % 14.8 % (3.8-10.2); NEUT % 55.2 % (42.8-82.8); PLATELET COUNT 235 10^3/uL (134-434); RBC 2.83 M/mm3 (4.00-5.60); RDW 27.1 % (11.9-15.9); WHITE BLOOD COUNT 2.1 K/mm3 (4.0-10.0)
[2023-04-19 07:30] LABS: INR 1.13 (0.83-1.09); PROTHROMBIN TIME (PATIENT) 13.1 SEC (9.7-13.0)
[2023-04-19 07:31] LABS: POTASSIUM 3.9 mmol/L (3.5-5.1)
[2023-04-19 07:41] LABS: BLOOD UREA NITROGEN 7.4 mg/dL (7-18); CALCIUM 8.5 mg/dL (8.5-10.1)
[2023-04-19 07:42] LABS: MAGNESIUM 1.7 mg/dL (1.8-2.4)
[2023-04-19 07:44] LABS: BILIRUBIN,DIRECT 0.5 mg/dL (0.0-0.2); CREATININE 0.7 mg/dL (0.55-1.3)
[2023-04-19 07:45] LABS: BILIRUBIN,TOTAL 1.1 mg/dL (0.2-1); TOT PROT 7.7 g/dl (6.4-8.2)
[2023-04-19 08:48] LABS: ANISOCYTOSIS 2+; MACROCYTOSIS 1+; TARGET CELLS 1+
[2023-04-19 09:09] LABS: PLATELET ESTIMATE ADEQUATE
[2023-04-19] MEDS: FOLIC ACID 1 MG TABLET (FP) PO SCH (09:13)
[2023-04-19] MEDS: PANTOPRAZOLE 40 MG TABLET PO SCH (09:13)
[2023-04-19] MEDS: THIAMINE HCL 100 MG TABLET (FP) PO SCH (09:13)
[2023-04-19] MEDS: POLYETHYLENE GLYCOL (HEALTHYLAX) 3350 17 GM PACKET PO SCH (09:13)
[2023-04-19] MEDS: traMADol HCL 50 MG TABLET PO PRN ×3 (09:14→20:30)
[2023-04-19] MEDS: BICTEGRAV/EMTRICIT/TENOFOV (BIKTARVY) 50-200-25 MG TABLET PO SCH (09:14)
[2023-04-19] MEDS: LIDOCAINE 4% PATCH TP SCH ×2 (09:14→11:24)
[2023-04-19] MEDS: MAGNESIUM 2GM/50ML STERILE WATER IVPB IVPB ONE ×2 (11:24→11:36)
[2023-04-19] MEDS ORDERED: MAGNESIUM OXIDE 400 MG TABLET (FP) PO ONE (12:15)
[2023-04-19] MEDS ORDERED: SODIUM CHLORIDE NASAL SPRAY 44 ML BOTTLE NS PRN (16:15)
[2023-04-19] MEDS ORDERED: MAG HYDROX/AL HYDROX/SIMETH 30 ML UNIT-DOSE CUP PO ONE (17:15)
[2023-04-19] MEDS ORDERED: MELATONIN 5 MG TABLETS PO ONE (19:12)
[2023-04-20 07:13] LABS: HEMATOCRIT 27.5 % (35.4-49); HEMOGLOBIN 9.1 GM/dL (11.7-16.9); MCH 31.1 pg (25.7-33.7); MCHC 33.1 g/dl (32.0-35.9); MEAN CELL VOLUME 93.9 fl (80-96); MEAN PLT VOLUME 6.9 fl (7.5-11.1); PLATELET COUNT 240 10^3/uL (134-434); RBC 2.93 M/mm3 (4.00-5.60); RDW 27.3 % (11.9-15.9); WHITE BLOOD COUNT 2.2 K/mm3 (4.0-10.0)
[2023-04-20 07:30] LABS: POTASSIUM 3.8 mmol/L (3.5-5.1)
[2023-04-20 07:36] LABS: CALCIUM 9.1 mg/dL (8.5-10.1)
[2023-04-20 07:37] LABS: ALBUMIN 3.1 g/dl (3.4-5.0); BLOOD UREA NITROGEN 6.3 mg/dL (7-18); MAGNESIUM 1.6 mg/dL (1.8-2.4)
[2023-04-20 07:40] LABS: CREATININE 0.7 mg/dL (0.55-1.3)
[2023-04-20 07:41] LABS: BILIRUBIN,TOTAL 1.1 mg/dL (0.2-1)
[2023-04-20 07:42] LABS: TOT PROT 7.7 g/dl (6.4-8.2)
[2023-04-20] MEDS: traMADol HCL 50 MG TABLET PO PRN ×3 (08:47→21:34)
[2023-04-20] MEDS: FOLIC ACID 1 MG TABLET (FP) PO SCH (09:02)
[2023-04-20] MEDS: LIDOCAINE 4% PATCH TP SCH (09:02)
[2023-04-20] MEDS: BICTEGRAV/EMTRICIT/TENOFOV (BIKTARVY) 50-200-25 MG TABLET PO SCH (09:02)
[2023-04-20] MEDS: PANTOPRAZOLE 40 MG TABLET PO SCH (09:03)
[2023-04-20] MEDS: POLYETHYLENE GLYCOL (HEALTHYLAX) 3350 17 GM PACKET PO SCH (09:03)
[2023-04-20] MEDS: THIAMINE HCL 100 MG TABLET (FP) PO SCH (09:03)
[2023-04-20] MEDS: CYCLOBENZAPRINE HCL 5 MG TABLET PO PRN ×2 (14:10→21:34)
[2023-04-20] MEDS: FLUTICASONE PROP 0.05% 16 GM NASAL SPRAY NS SCH ×2 (14:15→21:37)
[2023-04-20] MEDS: LIDOCAINE PATCH REMOVAL MC SCH (21:37)
[2023-04-21] MEDS: CYCLOBENZAPRINE HCL 5 MG TABLET PO PRN (06:32)
[2023-04-21] MEDS: traMADol HCL 50 MG TABLET PO PRN (06:35)
[2023-04-21 07:53] LABS: BASO % 1.1 % (0-2.0); EOS % 1.3 % (0-4.5); LYMPH % 29.1 % (8-40); MCH 31.4 pg (25.7-33.7); MCHC 33.3 g/dl (32.0-35.9); MEAN CELL VOLUME 94.1 fl (80-96); MEAN PLT VOLUME 7.1 fl (7.5-11.1); MONO % 15.5 % (3.8-10.2); PLATELET COUNT 270 10^3/uL (134-434); RBC 2.87 M/mm3 (4.00-5.60); RDW 27.2 % (11.9-15.9); WHITE BLOOD COUNT 2.2 K/mm3 (4.0-10.0)
[2023-04-21 08:24] LABS: INR 1.13 (0.83-1.09); PROTHROMBIN TIME (PATIENT) 13.1 SEC (9.7-13.0)
[2023-04-21 08:34] LABS: POTASSIUM 4.1 mmol/L (3.5-5.1)
[2023-04-21 08:36] LABS: CALCIUM 9.3 mg/dL (8.5-10.1)
[2023-04-21 08:37] LABS: ALBUMIN 3.2 g/dl (3.4-5.0); BLOOD UREA NITROGEN 8.6 mg/dL (7-18)
[2023-04-21 08:40] LABS: CREATININE 0.7 mg/dL (0.55-1.3)
[2023-04-21 08:41] LABS: BILIRUBIN,TOTAL 1.2 mg/dL (0.2-1)
[2023-04-21] MEDS ORDERED: MIDAZOLAM HCL 2 MG/2 ML SINGLE DOSE VIAL ONE (09:42)
[2023-04-21 11:06] VITALS: BP 139/96; PULSE 81; RESP 20; TEMP 98.2
[2023-04-21] MEDS: FLUTICASONE PROP 0.05% 16 GM NASAL SPRAY NS SCH (12:29)
[2023-04-21] MEDS: LIDOCAINE 4% PATCH TP SCH (12:30)
[2023-04-21] MEDS: PANTOPRAZOLE 40 MG TABLET PO SCH (12:31)
[2023-04-21] MEDS: THIAMINE HCL 100 MG TABLET (FP) PO SCH (12:31)
[2023-04-21] MEDS: FOLIC ACID 1 MG TABLET (FP) PO SCH (12:31)
[2023-04-21] MEDS: BICTEGRAV/EMTRICIT/TENOFOV (BIKTARVY) 50-200-25 MG TABLET PO SCH (12:31)
[2023-04-21] MEDS: POLYETHYLENE GLYCOL (HEALTHYLAX) 3350 17 GM PACKET PO SCH ×2 (12:31→12:35)
== END 2023-04-21 13:59 | disposition home or self-care (01) | DRG 254 ==
LOC: JER 16:15 → JERBED 22:52 → J4W 04-16 20:16
PROVIDERS: ADMIT Internal Medicine; ATTEND Internal Medicine
PROC: HZ2ZZZZ Detoxification Services for Substance Abuse Treatment (ICD-10-PCS; principal; 2023-04-15)
PROC: 0DJ08ZZ Inspection of Upper Intestinal Tract, Via Natural or Artificial Opening Endoscopic (ICD-10-PCS; 2023-04-21)
DX: K92.1 Melena (principal); B20 Human immunodeficiency virus [HIV] disease; E87.29 Other acidosis; D64.9 Anemia, unspecified; E87.1 Hypo-osmolality and hyponatremia; E16.2 Hypoglycemia, unspecified; S42.022A Displaced fracture of shaft of left clavicle, initial encounter for closed fracture; E87.6 Hypokalemia; F10.230 Alcohol dependence with withdrawal, uncomplicated; K70.30 Alcoholic cirrhosis of liver without ascites; K72.90 Hepatic failure, unspecified without coma; W19.XXXA Unspecified fall, initial encounter; Y93.9 Activity, unspecified; Y92.89 Other specified places as the place of occurrence of the external cause; Y99.9 Unspecified external cause status; R74.01 Elevation of levels of liver transaminase levels; R04.0 Epistaxis; E83.42 Hypomagnesemia
CPT/HCPCS: 36415; 70450-TC; 73030-TC-LT-FY; 74177-TC; 80048; 80053; 80076; 80307; 81003; 82010; 82140; 82248; 82272; 82550; 82607; 82728; 82746; 82962; 82977; 83540; 83550; 83605; 83735; 84100; 84484; 85025; 85027; 85610; 85730; 86359; 86360; 86704; 86803; 86850; 86900; 86901; 87040; 87086; 87340; 87389; 87517; 87536; 93005; 93010; 99285-25; Q9967

== ENCOUNTER 2023-05-21 13:29 | Inpatient (IN) | payer OTHER ==
[2023-05-21 14:58] VITALS: BMI 25.8
[2023-05-21] MEDS ORDERED: ACETAMINOPHEN 325 MG TABLET (FP) PO PRN (17:04)
[2023-05-21] MEDS ORDERED: POLYETHYLENE GLYCOL (HEALTHYLAX) 3350 17 GM PACKET PO PRN (17:04)
[2023-05-21] MEDS ORDERED: BENZOCAINE/MENTHOL (CHLORASEPTIC ) LOZENGE MM PRN (17:04)
[2023-05-21] MEDS ORDERED: MAGNESIUM HYDROX 2400MG/30ML ORAL SUSPENSION 30 ML CUP PO PRN (17:04)
[2023-05-21] MEDS ORDERED: ONDANSETRON *ODT* 4 MG TABLET SL PRN (17:04)
[2023-05-21] MEDS ORDERED: BENZONATATE 200 MG CAPSULE PO PRN (17:04)
[2023-05-21] MEDS ORDERED: NALOXONE HCL (KLOXXADO) 8 MG SPRAY NS PRN (17:04)
[2023-05-21] MEDS ORDERED: LOPERAMIDE HCL 2 MG CAPSULE PO PRN (17:04)
[2023-05-21] MEDS ORDERED: LORazepam 1 MG TABLET PO PRN (17:04)
[2023-05-21] MEDS ORDERED: guaiFENesin 600 MG TABLET.ER (FP) PO PRN (17:04)
[2023-05-21] MEDS ORDERED: NALOXONE HCL 0.4 MG/ML VIAL IM PRN (17:04)
[2023-05-21] MEDS ORDERED: LORazepam 2 MG TABLET ONE (17:49)
[2023-05-21] MEDS: LORazepam 2 MG TABLET PO SCH (17:58)
[2023-05-21] MEDS: hydrOXYzine PAMOATE 25 MG CAPSULE (FP) PO PRN (22:16)
[2023-05-21] MEDS: THIAMINE HCL 100 MG TABLET (FP) PO SCH (22:16)
[2023-05-21] MEDS: MELATONIN 5 MG TABLETS PO SCH (22:16)
[2023-05-22] MEDS ORDERED: SODIUM CHLORIDE NASAL SPRAY 44 ML BOTTLE NS PRN (09:03)
[2023-05-22] MEDS: IBUPROFEN 400 MG TABLET (FP) PO PRN (09:51)
[2023-05-22] MEDS: PRENATAL VITAMINS W/ FOLIC ACID TABLET (FP) PO SCH (10:35)
[2023-05-22] MEDS: BICTEGRAV/EMTRICIT/TENOFOV (BIKTARVY) 50-200-25 MG TABLET PO SCH (10:37)
[2023-05-22] MEDS: FLUTICASONE PROP 0.05% 16 GM NASAL SPRAY NS SCH (10:38)
[2023-05-22 11:01] LABS: CHLORIDE 105 mmol/L (98-107); SODIUM 138 mmol/L (136-145)
[2023-05-22 11:05] LABS: HEMATOCRIT 25.2 % (35.4-49); HEMOGLOBIN 8.3 GM/dL (11.7-16.9); MCH 30.2 pg (25.7-33.7); MCHC 32.9 g/dl (32.0-35.9); MEAN CELL VOLUME 91.8 fl (80-96); MEAN PLT VOLUME 7.2 fl (7.5-11.1); PLATELET COUNT 370 10^3/uL (134-434); RBC 2.75 M/mm3 (4.00-5.60); RDW 25.4 % (11.9-15.9); WHITE BLOOD COUNT 2.1 K/mm3 (4.0-10.0)
[2023-05-22 11:10] LABS: ALBUMIN 2.9 g/dl (3.4-5.0); ANION GAP 6 mmol/L (4-13); BLOOD UREA NITROGEN 13.7 mg/dL (7-18); CO2 26 mmol/L (21-32); CREATININE 0.7 mg/dL (0.55-1.3); GLUCOSE,RANDOM 70 mg/dL (74-106); SGOT/AST 153 U/L (15-37)
[2023-05-22 11:11] LABS: ALK PHOS 236 U/L (45-117); TOT PROT 7.2 g/dl (6.4-8.2)
[2023-05-22 11:13] LABS: SGPT/ALT 128 U/L (13-61)
[2023-05-22] MEDS: FERROUS SO4 325 MG TABLET (FP) PO SCH (18:02)
[2023-05-22] MEDS: cloNIDine HCL 0.1 MG TABLET PO PRN (22:28)
[2023-05-23] MEDS: LORazepam 1 MG TABLET PO SCH (05:19)
[2023-05-23] MEDS: IBUPROFEN 600 MG TABLET (FP) PO PRN (05:55)
[2023-05-23] MEDS: METHOCARBAMOL 500 MG TABLET PO PRN (10:22)
[2023-05-23] MEDS: DICYCLOMINE HCL 10 MG CAPSULE PO PRN (22:20)
[2023-05-23] MEDS: MAG HYDROX/AL HYDROX/SIMETH 30 ML UNIT-DOSE CUP PO PRN (22:20)
[2023-05-24] MEDS ORDERED: LORazepam 0.5 MG TABLET PO PRN
[2023-05-24] MEDS: LORazepam 0.5 MG TABLET PO SCH (05:38)
[2023-05-24] MEDS: BISMUTH SUBSALICYLATE 524 MG/30 ML PO PRN (20:37)
[2023-05-25] MEDS: LORazepam 0.5 MG TABLET PO ONE (05:19)
[2023-05-25 09:21] VITALS: BP 138/90; PULSE 90; RESP 16; TEMP 98
== END 2023-05-25 09:39 | disposition home or self-care (01) | DRG 775 ==
LOC: YASAS 13:29 → Y6N 17:09
PROVIDERS: ADMIT Allergy & Immunology; ATTEND Surgery
PROC: HZ2ZZZZ Detoxification Services for Substance Abuse Treatment (ICD-10-PCS; principal; 2023-05-21)
DX: F10.230 Alcohol dependence with withdrawal, uncomplicated (principal); Z21 Asymptomatic human immunodeficiency virus [HIV] infection status; G40.909 Epilepsy, unspecified, not intractable, without status epilepticus; K70.30 Alcoholic cirrhosis of liver without ascites; D72.819 Decreased white blood cell count, unspecified; A53.9 Syphilis, unspecified; R76.8 Other specified abnormal immunological findings in serum; Z87.891 Personal history of nicotine dependence; Z87.19 Personal history of other diseases of the digestive system
CPT/HCPCS: 36415; 80053; 80307; 85027; 86593; 86780; 87635; 93005; 93010

== ENCOUNTER 2023-06-15 06:52 | Inpatient (IN) | payer OTHER ==
[2023-06-15 07:22] VITALS: BMI 26.6
[2023-06-15] MEDS ORDERED: NALOXONE HCL (KLOXXADO) 8 MG SPRAY NS PRN (07:51)
[2023-06-15] MEDS ORDERED: LOPERAMIDE HCL 2 MG CAPSULE PO PRN (07:51)
[2023-06-15] MEDS ORDERED: ACETAMINOPHEN 325 MG TABLET (FP) PO PRN (07:51)
[2023-06-15] MEDS ORDERED: guaiFENesin 600 MG TABLET.ER (FP) PO PRN (07:51)
[2023-06-15] MEDS ORDERED: BISMUTH SUBSALICYLATE 524 MG/30 ML PO PRN (07:51)
[2023-06-15] MEDS ORDERED: NALOXONE HCL 0.4 MG/ML VIAL IM PRN (07:51)
[2023-06-15] MEDS ORDERED: ONDANSETRON *ODT* 4 MG TABLET SL PRN (07:51)
[2023-06-15] MEDS ORDERED: POLYETHYLENE GLYCOL (HEALTHYLAX) 3350 17 GM PACKET PO PRN (07:51)
[2023-06-15] MEDS ORDERED: BENZONATATE 200 MG CAPSULE PO PRN (07:51)
[2023-06-15] MEDS ORDERED: BENZOCAINE/MENTHOL (CHLORASEPTIC ) LOZENGE MM PRN (07:51)
[2023-06-15] MEDS ORDERED: MAGNESIUM HYDROX 2400MG/30ML ORAL SUSPENSION 30 ML CUP PO PRN (07:51)
[2023-06-15] MEDS ORDERED: MAG HYDROX/AL HYDROX/SIMETH 30 ML UNIT-DOSE CUP PO PRN (07:51)
[2023-06-15] MEDS: BICTEGRAV/EMTRICIT/TENOFOV (BIKTARVY) 50-200-25 MG TABLET PO SCH (10:40)
[2023-06-15] MEDS: GABAPENTIN 300 MG CAPSULE PO SCH (10:40)
[2023-06-15] MEDS: PRENATAL VITAMINS W/ FOLIC ACID TABLET (FP) PO SCH (10:40)
[2023-06-15] MEDS: hydrOXYzine PAMOATE 25 MG CAPSULE (FP) PO PRN (10:42)
[2023-06-15] MEDS: PENICILLIN G BENZATHINE 2,400,000 UNIT/4 ML PFS IM ONE (10:48)
[2023-06-15] MEDS: METHOCARBAMOL 500 MG TABLET PO PRN (19:09)
[2023-06-15] MEDS ORDERED: LORazepam 1 MG TABLET PO PRN (19:14)
[2023-06-15] MEDS: THIAMINE HCL 100 MG TABLET (FP) PO SCH (22:08)
[2023-06-15] MEDS: MELATONIN 5 MG TABLETS PO SCH (22:08)
[2023-06-15] MEDS: LORazepam 2 MG TABLET PO SCH (22:09)
[2023-06-16] MEDS: DICYCLOMINE HCL 10 MG CAPSULE PO PRN (10:04)
[2023-06-17] MEDS: LORazepam 1 MG TABLET PO SCH (05:39)
[2023-06-17 12:57] LABS: HEMATOCRIT 22.4 % (35.4-49); HEMOGLOBIN 7.4 GM/dL (11.7-16.9); MCH 29.9 pg (25.7-33.7); MCHC 33.1 g/dl (32.0-35.9); MEAN CELL VOLUME 90.3 fl (80-96); MEAN PLT VOLUME 7.4 fl (7.5-11.1); PLATELET COUNT 361 10^3/uL (134-434); RBC 2.48 M/mm3 (4.00-5.60); RDW 23.2 % (11.9-15.9); WHITE BLOOD COUNT 3.8 K/mm3 (4.0-10.0)
[2023-06-17 12:58] LABS: CHLORIDE 104 mmol/L (98-107); POTASSIUM 3.7 mmol/L (3.5-5.1); SODIUM 135 mmol/L (136-145)
[2023-06-17 13:05] LABS: BILIRUBIN,TOTAL 0.4 mg/dL (0.2-1); SGOT/AST 74 U/L (15-37); SGPT/ALT 51 U/L (13-61); TOT PROT 6.9 g/dl (6.4-8.2)
[2023-06-17 13:06] LABS: ALBUMIN 2.7 g/dl (3.4-5.0); ANION GAP 7 mmol/L (4-13); BLOOD UREA NITROGEN 10.4 mg/dL (7-18); CO2 24 mmol/L (21-32); CREATININE 0.7 mg/dL (0.55-1.3); GLUCOSE,RANDOM 182 mg/dL (74-106)
[2023-06-17 13:07] LABS: ALK PHOS 204 U/L (45-117)
[2023-06-17 13:12] LABS: CALCIUM 8.1 mg/dL (8.5-10.1)
[2023-06-18] MEDS ORDERED: LORazepam 0.5 MG TABLET PO PRN
[2023-06-18] MEDS: LORazepam 0.5 MG TABLET PO SCH (05:55)
[2023-06-18] MEDS: FERROUS SO4 325 MG TABLET (FP) PO SCH (11:28)
[2023-06-19] MEDS: LORazepam 0.5 MG TABLET PO ONE (05:10)
[2023-06-19 09:18] VITALS: RESP 18
[2023-06-19 13:02] VITALS: PULSE 97; TEMP 98.7
[2023-06-19 13:15] VITALS: BP 172/117
[2023-06-19] MEDS ORDERED: GABAPENTIN 300 MG CAPSULE PO SCH (14:00)
[2023-06-19] MEDS ORDERED: traZODone HCL 50 MG TABLET (FP) PO SCH (22:00)
== END 2023-06-19 13:46 | disposition other institution (70) | DRG 775 ==
LOC: YASAS 06:52 → Y3N 08:20
PROVIDERS: ADMIT Allergy & Immunology; ATTEND Surgery
PROC: HZ2ZZZZ Detoxification Services for Substance Abuse Treatment (ICD-10-PCS; principal; 2023-06-15)
DX: F10.230 Alcohol dependence with withdrawal, uncomplicated (principal); F10.220 Alcohol dependence with intoxication, uncomplicated; F10.24 Alcohol dependence with alcohol-induced mood disorder; B20 Human immunodeficiency virus [HIV] disease; D64.9 Anemia, unspecified; G40.909 Epilepsy, unspecified, not intractable, without status epilepticus; K70.30 Alcoholic cirrhosis of liver without ascites; Z86.19 Personal history of other infectious and parasitic diseases; Z87.891 Personal history of nicotine dependence; Z79.899 Other long term (current) drug therapy
CPT/HCPCS: 36415; 71045-TC-FY; 80053; 80305; 80307; 81003; 82977; 83690; 84484; 85025; 85027; 85610; 85730; 86593; 86780; 86850; 86900; 86901; 87086; 87635; 87811; 93005; 93010; 99283-25

== ENCOUNTER 2023-06-19 14:02 | Inpatient (IN) | payer OTHER ==
[2023-06-19] MEDS ORDERED: BENZOCAINE/MENTHOL (CHLORASEPTIC ) LOZENGE MM PRN (15:41)
[2023-06-19] MEDS ORDERED: MAGNESIUM HYDROX 2400MG/30ML ORAL SUSPENSION 30 ML CUP PO PRN (15:41)
[2023-06-19] MEDS ORDERED: IBUPROFEN 600 MG TABLET (FP) PO PRN (15:41)
[2023-06-19] MEDS ORDERED: NALOXONE (NYS OPIOID OVERDOSE PROGRAM) 4 MG/0.1 ML SPRAY NS PRN (15:41)
[2023-06-19] MEDS ORDERED: MAG HYDROX/AL HYDROX/SIMETH 30 ML UNIT-DOSE CUP PO PRN (15:41)
[2023-06-19] MEDS ORDERED: ACETAMINOPHEN 325 MG TABLET (FP) PO PRN (15:41)
[2023-06-19] MEDS ORDERED: guaiFENesin 600 MG TABLET.ER (FP) PO PRN (15:41)
[2023-06-19] MEDS ORDERED: LOPERAMIDE HCL 2 MG CAPSULE PO PRN (15:41)
[2023-06-19] MEDS ORDERED: BENZONATATE 200 MG CAPSULE PO PRN (15:41)
[2023-06-19] MEDS ORDERED: NALOXONE HCL 0.4 MG/ML VIAL IVPUSH PRN (15:41)
[2023-06-19] MEDS ORDERED: NICOTINE POLACRILEX 4 MG LOZENGE BC PRN (15:41)
[2023-06-19] MEDS ORDERED: NICOTINE POLACRILEX 4 MG GUM BUC PRN (15:41)
[2023-06-19] MEDS ORDERED: IBUPROFEN 400 MG TABLET (FP) PO PRN (15:41)
[2023-06-19] MEDS: METHOCARBAMOL 500 MG TABLET PO PRN (16:22)
[2023-06-19] MEDS: GABAPENTIN 300 MG CAPSULE PO SCH (21:11)
[2023-06-19] MEDS: THIAMINE HCL 100 MG TABLET (FP) PO SCH (21:11)
[2023-06-19] MEDS: MELATONIN 5 MG TABLETS PO SCH (21:11)
[2023-06-19] MEDS: hydrOXYzine PAMOATE 25 MG CAPSULE (FP) PO PRN (21:12)
[2023-06-20] MEDS: BICTEGRAV/EMTRICIT/TENOFOV (BIKTARVY) 50-200-25 MG TABLET PO SCH (07:09)
[2023-06-20] MEDS: FERROUS SO4 325 MG TABLET (FP) PO SCH (09:07)
[2023-06-20] MEDS: PRENATAL VITAMINS W/ FOLIC ACID TABLET (FP) PO SCH (09:07)
[2023-06-20] MEDS: PENICILLIN G BENZATHINE 2,400,000 UNIT/4 ML PFS IM ONE (13:02)
[2023-06-21] MEDS: POLYETHYLENE GLYCOL (HEALTHYLAX) 3350 17 GM PACKET PO PRN (10:41)
[2023-06-21] MEDS: QUEtiapine FUMARATE 25 MG TABLET PO SCH (21:42)
[2023-06-22] MEDS: PENICILLIN G BENZATHINE 2,400,000 UNIT/4 ML PFS IM ONE (10:26)
[2023-06-23 13:09] LABS: INR 1.15 (0.83-1.09); PROTHROMBIN TIME (PATIENT) 13.3 SEC (9.7-13.0)
[2023-06-23 13:29] LABS: BILIRUBIN,TOTAL 0.5 mg/dL (0.2-1); BLOOD UREA NITROGEN 10.4 mg/dL (7-18); CREATININE 0.8 mg/dL (0.55-1.3); MAGNESIUM 1.9 mg/dL (1.8-2.4); POTASSIUM 4.4 mmol/L (3.5-5.1); TOT PROT 7.6 g/dl (6.4-8.2)
[2023-06-23] MEDS: LACTULOSE 20 GM/30 ML UDC (FOR ORAL USE ONLY) PO SCH (14:41)
[2023-06-25 18:36] VITALS: BP 153/106; PULSE 91; RESP 16; TEMP 97.5
[2023-06-25] MEDS: cloNIDine HCL 0.1 MG TABLET PO ONE (18:37)
== END 2023-06-25 18:52 | disposition home or self-care (01) | DRG 772 ==
LOC: YASAS 14:02 → Y3W 14:03
PROVIDERS: ADMIT Allergy & Immunology; ATTEND Psychiatry & Neurology Pain Medicine
PROC: HZ42ZZZ Group Counseling for Substance Abuse Treatment, Cognitive-Behavioral (ICD-10-PCS; principal; 2023-06-19)
DX: F10.20 Alcohol dependence, uncomplicated (principal); Z21 Asymptomatic human immunodeficiency virus [HIV] infection status; E72.20 Disorder of urea cycle metabolism, unspecified; K70.30 Alcoholic cirrhosis of liver without ascites; R10.11 Right upper quadrant pain; Z87.891 Personal history of nicotine dependence; Z87.19 Personal history of other diseases of the digestive system; Z86.19 Personal history of other infectious and parasitic diseases; Z98.890 Other specified postprocedural states
CPT/HCPCS: 36415; 80053; 82140; 82652; 83735; 85025; 85610; 85730; 86803; 93005; 93010

== ENCOUNTER 2023-08-12 12:39 | Inpatient (IN) | payer OTHER ==
[2023-08-12 15:12] VITALS: BMI 26.1
[2023-08-12] MEDS ORDERED: BENZOCAINE/MENTHOL (CHLORASEPTIC ) LOZENGE MM PRN (15:22)
[2023-08-12] MEDS ORDERED: IBUPROFEN 600 MG TABLET (FP) PO PRN (15:22)
[2023-08-12] MEDS ORDERED: NALOXONE HCL 0.4 MG/ML VIAL IM PRN (15:22)
[2023-08-12] MEDS ORDERED: IBUPROFEN 400 MG TABLET (FP) PO PRN (15:22)
[2023-08-12] MEDS ORDERED: MAG HYDROX/AL HYDROX/SIMETH 30 ML UNIT-DOSE CUP PO PRN (15:22)
[2023-08-12] MEDS ORDERED: BENZONATATE 200 MG CAPSULE PO PRN (15:22)
[2023-08-12] MEDS ORDERED: BISMUTH SUBSALICYLATE 524 MG/30 ML PO PRN (15:22)
[2023-08-12] MEDS ORDERED: ACETAMINOPHEN 325 MG TABLET (FP) PO PRN (15:22)
[2023-08-12] MEDS ORDERED: POLYETHYLENE GLYCOL (HEALTHYLAX) 3350 17 GM PACKET PO PRN (15:22)
[2023-08-12] MEDS ORDERED: MAGNESIUM HYDROX 2400MG/30ML ORAL SUSPENSION 30 ML CUP PO PRN (15:22)
[2023-08-12] MEDS ORDERED: LOPERAMIDE HCL 2 MG CAPSULE PO PRN (15:22)
[2023-08-12] MEDS ORDERED: guaiFENesin 600 MG TABLET.ER (FP) PO PRN (15:22)
[2023-08-12] MEDS ORDERED: NALOXONE HCL (KLOXXADO) 8 MG SPRAY NS PRN (15:22)
[2023-08-12] MEDS ORDERED: diazePAM 5 MG TABLET ONE (17:28)
[2023-08-12] MEDS: diazePAM 5 MG TABLET PO SCH (17:30)
[2023-08-12] MEDS: THIAMINE 100 MG TABLET PO SCH (22:21)
[2023-08-12] MEDS: GABAPENTIN 300 MG CAPSULE PO SCH (22:21)
[2023-08-12] MEDS: MELATONIN 5 MG TABLETS PO SCH (22:22)
[2023-08-12] MEDS: METHOCARBAMOL 500 MG TABLET PO PRN (22:23)
[2023-08-13] MEDS: FERROUS SO4 325 MG TABLET (FP) PO SCH (10:20)
[2023-08-13] MEDS: PRENATAL VITAMINS W/ FOLIC ACID TABLET (FP) PO SCH (10:20)
[2023-08-13 11:34] LABS: HEMATOCRIT 25.8 % (35.4-49); HEMOGLOBIN 8.5 GM/dL (11.7-16.9); MCH 29.3 pg (25.7-33.7); MEAN CELL VOLUME 88.8 fl (80-96); MEAN PLT VOLUME 8.1 fl (7.5-11.1); PLATELET COUNT 141 10^3/uL (134-434); RDW 23.5 % (11.9-15.9)
[2023-08-13 11:45] LABS: WHITE BLOOD COUNT 1.5 K/mm3 (4.0-10.0)
[2023-08-13 12:03] LABS: CHLORIDE 98 mmol/L (98-107); POTASSIUM 3.7 mmol/L (3.5-5.1); SODIUM 134 mmol/L (136-145)
[2023-08-13] MEDS: BICTEGRAV/EMTRICIT/TENOFOV (BIKTARVY) 50-200-25 MG TABLET PO SCH (12:10)
[2023-08-13 12:12] LABS: BLOOD UREA NITROGEN 13.7 mg/dL (7-18)
[2023-08-13 12:13] LABS: ALBUMIN 3.1 g/dl (3.4-5.0); ANION GAP 7 mmol/L (4-13); CO2 28 mmol/L (21-32); GLUCOSE,RANDOM 64 mg/dL (74-106)
[2023-08-13 12:16] LABS: CREATININE 0.7 mg/dL (0.55-1.3); SGOT/AST 149 U/L (15-37); SGPT/ALT 72 U/L (13-61)
[2023-08-13 12:17] LABS: BILIRUBIN,TOTAL 0.9 mg/dL (0.2-1); TOT PROT 7.4 g/dl (6.4-8.2)
[2023-08-13 12:18] LABS: ALK PHOS 218 U/L (45-117)
[2023-08-13] MEDS: LACTULOSE 20 GM/30 ML UDC (FOR ORAL USE ONLY) PO SCH (17:34)
[2023-08-13] MEDS: traZODone HCL 100 MG TABLET (FP) PO SCH (22:21)
[2023-08-13] MEDS: ACAMPROSATE CALCIUM 333 MG TABLET.DR PO SCH (22:57)
[2023-08-14] MEDS: diazePAM 5 MG TABLET PO SCH (05:54)
[2023-08-14] MEDS: DICYCLOMINE HCL 10 MG CAPSULE PO PRN (05:58)
[2023-08-14] MEDS: hydrOXYzine PAMOATE 25 MG CAPSULE (FP) PO PRN (05:59)
[2023-08-14] MEDS: PENICILLIN G BENZATHINE 2,400,000 UNIT/4 ML PFS IM ONE (11:02)
[2023-08-14] MEDS: diazePAM 5 MG TABLET PO PRN (17:28)
[2023-08-15] MEDS: diazePAM 5 MG TABLET PO SCH (05:53)
[2023-08-15] MEDS: ONDANSETRON *ODT* 4 MG TABLET SL PRN (05:54)
[2023-08-15 11:32] LABS: HEMATOCRIT 28.2 % (35.4-49); MCH 29.1 pg (25.7-33.7); MCHC 31.8 g/dl (32.0-35.9); MEAN CELL VOLUME 91.6 fl (80-96); MEAN PLT VOLUME 7.9 fl (7.5-11.1); PLATELET COUNT 247 10^3/uL (134-434); RBC 3.08 M/mm3 (4.00-5.60); RDW 24.3 % (11.9-15.9)
[2023-08-15 12:27] LABS: WHITE BLOOD COUNT 1.6 K/mm3 (4.0-10.0)
[2023-08-16] MEDS: diazePAM 5 MG TABLET PO ONE (06:04)
[2023-08-16 06:24] VITALS: RESP 17; TEMP 97.8
[2023-08-16 09:08] VITALS: BP 124/71; PULSE 94
== END 2023-08-16 09:59 | disposition home or self-care (01) | DRG 775 ==
LOC: YASAS 12:39 → Y6N 16:04
PROVIDERS: ADMIT Allergy & Immunology; ATTEND Surgery
PROC: HZ2ZZZZ Detoxification Services for Substance Abuse Treatment (ICD-10-PCS; principal; 2023-08-12)
DX: F10.230 Alcohol dependence with withdrawal, uncomplicated (principal); F13.20 Sedative, hypnotic or anxiolytic dependence, uncomplicated; F19.282 Other psychoactive substance dependence with psychoactive substance-induced sleep disorder; F32.9 Major depressive disorder, single episode, unspecified; Z21 Asymptomatic human immunodeficiency virus [HIV] infection status; D64.9 Anemia, unspecified; K70.30 Alcoholic cirrhosis of liver without ascites; R74.01 Elevation of levels of liver transaminase levels; R79.89 Other specified abnormal findings of blood chemistry; Z87.891 Personal history of nicotine dependence; Z87.11 Personal history of peptic ulcer disease; Z86.19 Personal history of other infectious and parasitic diseases; Z79.899 Other long term (current) drug therapy
CPT/HCPCS: 36415; 80053; 80305; 80307; 82140; 84450; 85027; 86593; 86780; 93005; 93010; Q0162

== ENCOUNTER 2023-08-26 20:11 | Inpatient (IN) | payer OTHER ==
[2023-08-26 21:30] VITALS: BMI 26.4
[2023-08-26] MEDS ORDERED: LOPERAMIDE HCL 2 MG CAPSULE PO PRN (22:04)
[2023-08-26] MEDS ORDERED: POLYETHYLENE GLYCOL (HEALTHYLAX) 3350 17 GM PACKET PO PRN (22:04)
[2023-08-26] MEDS ORDERED: BENZOCAINE/MENTHOL (CHLORASEPTIC ) LOZENGE MM PRN (22:04)
[2023-08-26] MEDS ORDERED: BISMUTH SUBSALICYLATE 524 MG/30 ML PO PRN (22:04)
[2023-08-26] MEDS ORDERED: DICYCLOMINE HCL 10 MG CAPSULE PO PRN (22:04)
[2023-08-26] MEDS ORDERED: BENZONATATE 200 MG CAPSULE PO PRN (22:04)
[2023-08-26] MEDS ORDERED: guaiFENesin 600 MG TABLET.ER (FP) PO PRN (22:04)
[2023-08-26] MEDS ORDERED: ONDANSETRON *ODT* 4 MG TABLET SL PRN (22:04)
[2023-08-26] MEDS ORDERED: MAGNESIUM HYDROX 2400MG/30ML ORAL SUSPENSION 30 ML CUP PO PRN (22:04)
[2023-08-26] MEDS ORDERED: MAG HYDROX/AL HYDROX/SIMETH 30 ML UNIT-DOSE CUP PO PRN (22:04)
[2023-08-26] MEDS ORDERED: LORazepam 2 MG TABLET ONE (23:36)
[2023-08-26] MEDS ORDERED: GABAPENTIN 100 MG CAPSULE ONE (23:41)
[2023-08-26] MEDS: LORazepam 2 MG TABLET PO SCH (23:46)
[2023-08-26] MEDS: GABAPENTIN 300 MG CAPSULE PO SCH (23:46)
[2023-08-27] MEDS: FERROUS SO4 325 MG TABLET (FP) PO SCH (09:26)
[2023-08-27] MEDS: BICTEGRAV/EMTRICIT/TENOFOV (BIKTARVY) 50-200-25 MG TABLET PO SCH (09:26)
[2023-08-27] MEDS: PRENATAL VITAMINS W/ FOLIC ACID TABLET (FP) PO SCH (09:26)
[2023-08-27] MEDS: hydrOXYzine PAMOATE 25 MG CAPSULE (FP) PO PRN (09:27)
[2023-08-27] MEDS: cloNIDine HCL 0.1 MG TABLET PO ONE (14:48)
[2023-08-27 17:10] LABS: HEMATOCRIT 28.3 % (35.4-49); HEMOGLOBIN 9.3 GM/dL (11.7-16.9); MCH 29.8 pg (25.7-33.7); MEAN CELL VOLUME 90.4 fl (80-96); MEAN PLT VOLUME 8.2 fl (7.5-11.1); PLATELET COUNT 197 10^3/uL (134-434); RBC 3.14 M/mm3 (4.00-5.60); RDW 23.8 % (11.9-15.9); WHITE BLOOD COUNT 2.1 K/mm3 (4.0-10.0)
[2023-08-27 17:14] LABS: POTASSIUM 4.3 mmol/L (3.5-5.1)
[2023-08-27 17:17] LABS: ALBUMIN 3.1 g/dl (3.4-5.0); BLOOD UREA NITROGEN 14.6 mg/dL (7-18); CALCIUM 8.9 mg/dL (8.5-10.1)
[2023-08-27 17:19] LABS: CREATININE 0.9 mg/dL (0.55-1.3)
[2023-08-27 17:22] LABS: BILIRUBIN,TOTAL 0.7 mg/dL (0.2-1); TOT PROT 7.6 g/dl (6.4-8.2)
[2023-08-27] MEDS: LORazepam 1 MG TABLET PO PRN (19:05)
[2023-08-27] MEDS: MELATONIN 5 MG TABLETS PO SCH (22:20)
[2023-08-27] MEDS: THIAMINE 100 MG TABLET PO SCH (22:20)
[2023-08-28] MEDS: LORazepam 1 MG TABLET PO SCH (05:42)
[2023-08-28 06:04] VITALS: RESP 18
[2023-08-28] MEDS: cloNIDine HCL 0.1 MG TABLET PO ONE (09:18)
[2023-08-28 10:01] VITALS: BP 136/89; PULSE 91; TEMP 97.3
[2023-08-29] MEDS ORDERED: LORazepam 0.5 MG TABLET PO PRN
[2023-08-29] MEDS ORDERED: LORazepam 0.5 MG TABLET PO SCH (05:00)
[2023-08-30] MEDS ORDERED: LORazepam 0.5 MG TABLET PO ONE (05:00)
== END 2023-08-28 09:55 | disposition left against medical advice (07) | DRG 770 ==
LOC: YASAS 20:11 → Y6N 08-27 01:36
PROVIDERS: ADMIT Allergy & Immunology; ATTEND Surgery
PROC: HZ2ZZZZ Detoxification Services for Substance Abuse Treatment (ICD-10-PCS; principal; 2023-08-27)
DX: F10.230 Alcohol dependence with withdrawal, uncomplicated (principal); F10.220 Alcohol dependence with intoxication, uncomplicated; Z21 Asymptomatic human immunodeficiency virus [HIV] infection status; D72.819 Decreased white blood cell count, unspecified; D50.9 Iron deficiency anemia, unspecified; K70.30 Alcoholic cirrhosis of liver without ascites; I10 Essential (primary) hypertension; Z79.899 Other long term (current) drug therapy; Z87.19 Personal history of other diseases of the digestive system; Z86.19 Personal history of other infectious and parasitic diseases; Z87.891 Personal history of nicotine dependence
CPT/HCPCS: 36415; 80053; 80305; 85027; 86593; 86780; 86803

== ENCOUNTER 2023-09-10 11:02 | Inpatient (IN) | payer OTHER ==
[2023-09-10] MEDS ORDERED: BENZOCAINE/MENTHOL (CHLORASEPTIC ) LOZENGE MM PRN (11:48)
[2023-09-10] MEDS ORDERED: guaiFENesin 600 MG TABLET.ER (FP) PO PRN (11:48)
[2023-09-10] MEDS ORDERED: LOPERAMIDE HCL 2 MG CAPSULE PO PRN (11:48)
[2023-09-10] MEDS ORDERED: MAG HYDROX/AL HYDROX/SIMETH 30 ML UNIT-DOSE CUP PO PRN (11:48)
[2023-09-10] MEDS ORDERED: BENZONATATE 200 MG CAPSULE PO PRN (11:48)
[2023-09-10 12:24] VITALS: BMI 27.3
[2023-09-10] MEDS: hydrOXYzine PAMOATE 25 MG CAPSULE (FP) PO PRN (13:10)
[2023-09-10] MEDS: FAMOTIDINE 20 MG TABLET PO SCH (13:10)
[2023-09-10] MEDS: METOPROLOL TARTRATE 25 MG TABLET (FP) PO ONE ×3 (15:36→23:26)
[2023-09-10] MEDS ORDERED: MELATONIN 5 MG TABLETS PO SCH (22:00)
[2023-09-10] MEDS: QUEtiapine FUMARATE 200 MG TABLET PO SCH (22:09)
[2023-09-10] MEDS: GABAPENTIN 300 MG CAPSULE PO SCH (22:09)
[2023-09-10] MEDS: THIAMINE 100 MG TABLET PO SCH (22:09)
[2023-09-10] MEDS: METHOCARBAMOL 500 MG TABLET PO PRN (23:12)
[2023-09-11] MEDS: BICTEGRAV/EMTRICIT/TENOFOV (BIKTARVY) 50-200-25 MG TABLET PO SCH (07:47)
[2023-09-11] MEDS: FERROUS SO4 325 MG TABLET (FP) PO SCH (09:42)
[2023-09-11] MEDS: PRENATAL VITAMINS W/ FOLIC ACID TABLET (FP) PO SCH (09:42)
[2023-09-11] MEDS: MAGNESIUM HYDROX 2400MG/30ML ORAL SUSPENSION 30 ML CUP PO PRN (09:44)
[2023-09-12] MEDS: ACETAMINOPHEN 325 MG TABLET (FP) PO PRN (09:39)
[2023-09-12] MEDS: IBUPROFEN 600 MG TABLET (FP) PO PRN (16:03)
[2023-09-12] MEDS: hydrOXYzine PAMOATE 50 MG CAPSULE (FP) PO PRN (16:04)
[2023-09-12] MEDS: MELATONIN 5 MG TABLETS PO PRN (21:25)
[2023-09-14] MEDS: POLYETHYLENE GLYCOL (HEALTHYLAX) 3350 17 GM PACKET PO PRN (08:44)
[2023-09-15] MEDS: LACTULOSE 20 GM/30 ML UDC (FOR ORAL USE ONLY) PO SCH (15:28)
[2023-09-15] MEDS: GABAPENTIN 300 MG CAPSULE PO SCH (21:22)
[2023-09-16 12:02] LABS: BASO % 0.6 % (0-2.0); EOS % 0.7 % (0-4.5); HEMATOCRIT 29.4 % (35.4-49); HEMOGLOBIN 9.6 GM/dL (11.7-16.9); LYMPH % 21.8 % (8-40); MCH 29.9 pg (25.7-33.7); MCHC 32.8 g/dl (32.0-35.9); MEAN CELL VOLUME 91.1 fl (80-96); MEAN PLT VOLUME 7.3 fl (7.5-11.1); MONO % 16.7 % (3.8-10.2); NEUT % 60.2 % (42.8-82.8); PLATELET COUNT 418 10^3/uL (134-434); RBC 3.23 M/mm3 (4.00-5.60); RDW 22.2 % (11.9-15.9); WHITE BLOOD COUNT 3.3 K/mm3 (4.0-10.0)
[2023-09-16 12:09] LABS: INR 1.11 (0.83-1.09); PROTHROMBIN TIME (PATIENT) 12.7 SEC (9.7-13.0)
[2023-09-16 12:25] LABS: POTASSIUM 4.4 mmol/L (3.5-5.1)
[2023-09-16 12:26] LABS: ALBUMIN 3.4 g/dl (3.4-5.0); BLOOD UREA NITROGEN 12.5 mg/dL (7-18); CALCIUM 9.2 mg/dL (8.5-10.1); MAGNESIUM 2.1 mg/dL (1.8-2.4)
[2023-09-16 12:30] LABS: CREATININE 0.9 mg/dL (0.55-1.3)
[2023-09-16 12:31] LABS: BILIRUBIN,TOTAL 0.7 mg/dL (0.2-1)
[2023-09-16 12:32] LABS: TOT PROT 8.3 g/dl (6.4-8.2)
[2023-09-16] MEDS: IBUPROFEN 400 MG TABLET (FP) PO PRN (12:44)
[2023-09-16 13:23] LABS: ANISOCYTOSIS 1+; MACROCYTOSIS 1+
[2023-09-20 07:46] VITALS: RESP 18
[2023-09-23 12:03] LABS: POTASSIUM 4.7 mmol/L (3.5-5.1)
[2023-09-23 12:09] LABS: ALBUMIN 3.5 g/dl (3.4-5.0); CALCIUM 9.5 mg/dL (8.5-10.1)
[2023-09-23 12:10] LABS: BLOOD UREA NITROGEN 13.7 mg/dL (7-18)
[2023-09-23 12:12] LABS: CREATININE 0.8 mg/dL (0.55-1.3)
[2023-09-23 12:14] LABS: BILIRUBIN,TOTAL 0.8 mg/dL (0.2-1); TOT PROT 8.2 g/dl (6.4-8.2)
[2023-09-23 12:28] LABS: BASO % 1.1 % (0-2.0); EOS % 1.8 % (0-4.5); HEMOGLOBIN 10.4 GM/dL (11.7-16.9); MCH 30.7 pg (25.7-33.7); MCHC 33.6 g/dl (32.0-35.9); MEAN CELL VOLUME 91.3 fl (80-96); MEAN PLT VOLUME 7.7 fl (7.5-11.1); MONO % 9.3 % (3.8-10.2); NEUT % 56.8 % (42.8-82.8); PLATELET COUNT 332 10^3/uL (134-434); RBC 3.39 M/mm3 (4.00-5.60); RDW 20.6 % (11.9-15.9); WHITE BLOOD COUNT 2.6 K/mm3 (4.0-10.0)
[2023-09-23 13:20] LABS: ANISOCYTOSIS 1+; MACROCYTOSIS 1+
[2023-09-24 06:50] VITALS: BP 140/85; PULSE 90; TEMP 97.1
== END 2023-09-24 09:33 | disposition home or self-care (01) | DRG 772 ==
LOC: YASAS 11:02 → Y3E 11:46 → Y3NR 11:55 → Y3E 09-11 12:55
PROVIDERS: ADMIT Allergy & Immunology; ATTEND Psychiatry & Neurology Pain Medicine
PROC: HZ42ZZZ Group Counseling for Substance Abuse Treatment, Cognitive-Behavioral (ICD-10-PCS; principal; 2023-09-10)
DX: F10.20 Alcohol dependence, uncomplicated (principal); F14.20 Cocaine dependence, uncomplicated; F13.20 Sedative, hypnotic or anxiolytic dependence, uncomplicated; F19.282 Other psychoactive substance dependence with psychoactive substance-induced sleep disorder; F10.24 Alcohol dependence with alcohol-induced mood disorder; F10.282 Alcohol dependence with alcohol-induced sleep disorder; F32.A Depression, unspecified; Z21 Asymptomatic human immunodeficiency virus [HIV] infection status; E72.20 Disorder of urea cycle metabolism, unspecified; K70.30 Alcoholic cirrhosis of liver without ascites; Z86.69 Personal history of other diseases of the nervous system and sense organs; Z87.19 Personal history of other diseases of the digestive system
CPT/HCPCS: 36415; 80053; 80305; 82140; 82652; 83036; 83735; 85025; 85610; 87811

== ENCOUNTER 2023-10-29 08:21 | Inpatient (IN) | payer OTHER ==
[2023-10-29 08:45] VITALS: BMI 29.5
[2023-10-29] MEDS ORDERED: chlordiazePOXIDE HCL 25 MG CAPSULE PO PRN (08:57)
[2023-10-29] MEDS ORDERED: POLYETHYLENE GLYCOL (HEALTHYLAX) 3350 17 GM PACKET PO PRN (09:00)
[2023-10-29] MEDS ORDERED: guaiFENesin 600 MG TABLET.ER (FP) PO PRN (09:00)
[2023-10-29] MEDS ORDERED: BISMUTH SUBSALICYLATE 524 MG/30 ML PO PRN (09:00)
[2023-10-29] MEDS ORDERED: BENZONATATE 200 MG CAPSULE PO PRN (09:00)
[2023-10-29] MEDS ORDERED: IBUPROFEN 400 MG TABLET (FP) PO PRN (09:00)
[2023-10-29] MEDS ORDERED: LOPERAMIDE HCL 2 MG CAPSULE PO PRN (09:00)
[2023-10-29] MEDS ORDERED: BENZOCAINE/MENTHOL (CHLORASEPTIC ) LOZENGE MM PRN (09:00)
[2023-10-29] MEDS ORDERED: MAG HYDROX/AL HYDROX/SIMETH 30 ML UNIT-DOSE CUP PO PRN (09:00)
[2023-10-29] MEDS ORDERED: MAGNESIUM HYDROX 2400MG/30ML ORAL SUSPENSION 30 ML CUP PO PRN (09:00)
[2023-10-29] MEDS ORDERED: chlordiazePOXIDE HCL 25 MG CAPSULE ONE (09:08)
[2023-10-29] MEDS: chlordiazePOXIDE HCL 25 MG CAPSULE PO ONE (09:15)
[2023-10-29] MEDS ORDERED: PRENATAL VITAMINS W/ FOLIC ACID TABLET (FP) PO ONE (09:55)
[2023-10-29] MEDS: PRENATAL VITAMINS W/ FOLIC ACID TABLET (FP) PO SCH ×2 (09:56→11:09)
[2023-10-29] MEDS ORDERED: chlordiazePOXIDE HCL 25 MG CAPSULE PO SCH (11:00)
[2023-10-29] MEDS: GABAPENTIN 300 MG CAPSULE PO SCH ×2 (11:08→11:14)
[2023-10-29] MEDS: FAMOTIDINE 20 MG TABLET PO SCH ×2 (11:08→11:14)
[2023-10-29] MEDS: BICTEGRAV/EMTRICIT/TENOFOV (BIKTARVY) 50-200-25 MG TABLET PO SCH ×3 (11:09→11:14)
[2023-10-29] MEDS: LORazepam 2 MG TABLET PO SCH (11:09)
[2023-10-29] MEDS: LACTULOSE 20 GM/30 ML UDC (FOR ORAL USE ONLY) PO SCH ×3 (11:10→11:14)
[2023-10-29] MEDS: FERROUS SO4 325 MG TABLET (FP) PO SCH (13:25)
[2023-10-29] MEDS: DICYCLOMINE HCL 10 MG CAPSULE PO PRN (17:39)
[2023-10-29] MEDS: MELATONIN 5 MG TABLETS PO SCH (22:10)
[2023-10-29] MEDS: THIAMINE 100 MG TABLET PO SCH (22:11)
[2023-10-29] MEDS: ONDANSETRON *ODT* 4 MG TABLET SL PRN (22:54)
[2023-10-30] MEDS ORDERED: FERROUS SO4 325 MG TABLET (FP) PO SCH (12:00)
[2023-10-30] MEDS: NALTREXONE HCL 50 MG TABLET PO SCH (13:41)
[2023-10-30] MEDS: LORazepam 1 MG TABLET PO PRN (13:45)
[2023-10-30] MEDS: QUEtiapine FUMARATE 200 MG TABLET PO SCH (22:15)
[2023-10-31] MEDS ORDERED: chlordiazePOXIDE HCL 25 MG CAPSULE PO SCH (05:00)
[2023-10-31] MEDS: LORazepam 1 MG TABLET PO SCH (05:36)
[2023-11-01] MEDS ORDERED: chlordiazePOXIDE HCL 10 MG CAPSULE PO PRN
[2023-11-01] MEDS ORDERED: LORazepam 0.5 MG TABLET PO PRN
[2023-11-01] MEDS ORDERED: chlordiazePOXIDE HCL 10 MG CAPSULE PO SCH (05:00)
[2023-11-01] MEDS: LORazepam 0.5 MG TABLET PO SCH (05:37)
[2023-11-01 11:46] LABS: HEMATOCRIT 28.4 % (35.4-49); HEMOGLOBIN 9.3 GM/dL (11.7-16.9); MCH 30.2 pg (25.7-33.7); MCHC 32.7 g/dl (32.0-35.9); MEAN CELL VOLUME 92.4 fl (80-96); PLATELET COUNT 192 10^3/uL (134-434); RBC 3.08 M/mm3 (4.00-5.60); WHITE BLOOD COUNT 2.2 K/mm3 (4.0-10.0)
[2023-11-01 11:53] LABS: ALBUMIN 2.8 g/dl (3.4-5.0); BLOOD UREA NITROGEN 10.2 mg/dL (7-18); CALCIUM 8.8 mg/dL (8.5-10.1)
[2023-11-01 11:56] LABS: CREATININE 0.7 mg/dL (0.55-1.3)
[2023-11-01 11:58] LABS: BILIRUBIN,TOTAL 0.8 mg/dL (0.2-1); TOT PROT 6.9 g/dl (6.4-8.2)
[2023-11-02] MEDS ORDERED: chlordiazePOXIDE HCL 10 MG CAPSULE PO SCH (05:00)
[2023-11-02] MEDS: LORazepam 0.5 MG TABLET PO ONE (05:34)
[2023-11-02] MEDS: amLODIPine BESYLATE 2.5 MG TABLET (FP) PO SCH (11:45)
[2023-11-02] MEDS: hydrOXYzine PAMOATE 25 MG CAPSULE (FP) PO PRN (11:45)
[2023-11-02] MEDS: ACAMPROSATE CALCIUM 333 MG TABLET.DR PO SCH (13:34)
[2023-11-02 21:11] VITALS: RESP 18
[2023-11-02] MEDS: cloNIDine HCL 0.1 MG TABLET PO ONE (23:31)
[2023-11-03] MEDS ORDERED: chlordiazePOXIDE HCL 10 MG CAPSULE PO ONE (05:00)
[2023-11-03 08:55] VITALS: TEMP 97.3
[2023-11-03 10:58] VITALS: BP 143/100; PULSE 84
== END 2023-11-03 09:49 | disposition home or self-care (01) | DRG 775 ==
LOC: YASAS 08:21 → Y6N 09:47
PROVIDERS: ADMIT Allergy & Immunology; ATTEND Surgery
PROC: HZ2ZZZZ Detoxification Services for Substance Abuse Treatment (ICD-10-PCS; principal; 2023-10-28)
DX: F10.230 Alcohol dependence with withdrawal, uncomplicated (principal); F10.282 Alcohol dependence with alcohol-induced sleep disorder; F10.24 Alcohol dependence with alcohol-induced mood disorder; F13.230 Sedative, hypnotic or anxiolytic dependence with withdrawal, uncomplicated; F17.210 Nicotine dependence, cigarettes, uncomplicated; F32.9 Major depressive disorder, single episode, unspecified; K70.30 Alcoholic cirrhosis of liver without ascites; Z21 Asymptomatic human immunodeficiency virus [HIV] infection status; D50.0 Iron deficiency anemia secondary to blood loss (chronic); K21.9 Gastro-esophageal reflux disease without esophagitis; D72.819 Decreased white blood cell count, unspecified; G40.909 Epilepsy, unspecified, not intractable, without status epilepticus; Z98.84 Bariatric surgery status; Z86.19 Personal history of other infectious and parasitic diseases; Z56.0 Unemployment, unspecified
CPT/HCPCS: 36415; 71046-TC-FY; 73610-TC-RT-FY; 80053; 80305; 80307; 83690; 85025; 85027; 85610; 85730; 86593; 86780; 93005; 93010; 99283-25; Q0162

== ENCOUNTER 2023-11-14 19:03 | Inpatient (IN) | payer OTHER ==
[2023-11-14 20:12] VITALS: BMI 27.3
[2023-11-14] MEDS ORDERED: BENZONATATE 200 MG CAPSULE PO PRN (20:31)
[2023-11-14] MEDS ORDERED: NICOTINE POLACRILEX 2 MG LOZENGE BC PRN (20:31)
[2023-11-14] MEDS ORDERED: IBUPROFEN 600 MG TABLET (FP) PO PRN (20:31)
[2023-11-14] MEDS ORDERED: IBUPROFEN 400 MG TABLET (FP) PO PRN (20:31)
[2023-11-14] MEDS ORDERED: LOPERAMIDE HCL 2 MG CAPSULE PO PRN (20:31)
[2023-11-14] MEDS ORDERED: BENZOCAINE/MENTHOL (CHLORASEPTIC ) LOZENGE MM PRN (20:31)
[2023-11-14] MEDS ORDERED: NICOTINE POLACRILEX 2 MG GUM BUC PRN (20:31)
[2023-11-14] MEDS ORDERED: ACETAMINOPHEN 325 MG TABLET (FP) PO PRN (20:31)
[2023-11-14] MEDS ORDERED: POLYETHYLENE GLYCOL (HEALTHYLAX) 3350 17 GM PACKET PO PRN (20:31)
[2023-11-14] MEDS ORDERED: guaiFENesin 600 MG TABLET.ER (FP) PO PRN (20:31)
[2023-11-14] MEDS ORDERED: ONDANSETRON *ODT* 4 MG TABLET SL PRN (20:31)
[2023-11-14] MEDS ORDERED: MAGNESIUM HYDROX 2400MG/30ML ORAL SUSPENSION 30 ML CUP PO PRN (20:31)
[2023-11-14] MEDS: MELATONIN 5 MG TABLETS PO SCH (23:10)
[2023-11-14] MEDS: chlordiazePOXIDE HCL 25 MG CAPSULE PO SCH (23:12)
[2023-11-14] MEDS: THIAMINE 100 MG TABLET PO SCH (23:13)
[2023-11-14] MEDS: METHOCARBAMOL 500 MG TABLET PO PRN (23:14)
[2023-11-14] MEDS: GABAPENTIN 300 MG CAPSULE PO SCH (23:28)
[2023-11-14] MEDS: VITAMINS A AND D TOPICAL OINTMENT TP SCH (23:31)
[2023-11-15] MEDS: PRENATAL VITAMINS W/ FOLIC ACID TABLET (FP) PO SCH (10:25)
[2023-11-15] MEDS: BICTEGRAV/EMTRICIT/TENOFOV (BIKTARVY) 50-200-25 MG TABLET PO SCH (10:26)
[2023-11-15] MEDS: FAMOTIDINE 20 MG TABLET PO SCH (10:26)
[2023-11-15] MEDS: hydrOXYzine PAMOATE 25 MG CAPSULE (FP) PO PRN (11:58)
[2023-11-15] MEDS: MAG HYDROX/AL HYDROX/SIMETH 30 ML UNIT-DOSE CUP PO PRN (13:19)
[2023-11-15] MEDS: FERROUS SO4 325 MG TABLET (FP) PO SCH (13:19)
[2023-11-15] MEDS: chlordiazePOXIDE HCL 25 MG CAPSULE PO PRN (14:46)
[2023-11-15] MEDS: BISMUTH SUBSALICYLATE 524 MG/30 ML PO PRN (18:12)
[2023-11-15] MEDS: QUEtiapine FUMARATE 200 MG TABLET PO SCH (22:03)
[2023-11-15] MEDS: AMMONIUM LACTATE 12% LOTION 225 GM BOTTLE TP PRN (22:04)
[2023-11-16] MEDS: chlordiazePOXIDE HCL 25 MG CAPSULE PO SCH (05:39)
[2023-11-16] MEDS: DICYCLOMINE HCL 10 MG CAPSULE PO PRN (18:36)
[2023-11-17] MEDS: chlordiazePOXIDE HCL 10 MG CAPSULE PO PRN (01:59)
[2023-11-17] MEDS: chlordiazePOXIDE HCL 10 MG CAPSULE PO SCH (05:28)
[2023-11-18] MEDS: propRANOLol HCL 10 MG TABLET PO ONE (00:05)
[2023-11-18] MEDS: chlordiazePOXIDE HCL 10 MG CAPSULE PO SCH (05:45)
[2023-11-18 09:13] VITALS: BP 146/81; PULSE 83; RESP 18; TEMP 97.1
[2023-11-19] MEDS ORDERED: chlordiazePOXIDE HCL 10 MG CAPSULE PO ONE (05:00)
== END 2023-11-18 09:53 | disposition home or self-care (01) | DRG 775 ==
LOC: YASAS 19:03 → Y3N 21:38
PROVIDERS: ADMIT Allergy & Immunology; ATTEND Surgery
PROC: HZ2ZZZZ Detoxification Services for Substance Abuse Treatment (ICD-10-PCS; principal; 2023-11-14)
DX: F10.230 Alcohol dependence with withdrawal, uncomplicated (principal); F17.210 Nicotine dependence, cigarettes, uncomplicated; F31.9 Bipolar disorder, unspecified; Z21 Asymptomatic human immunodeficiency virus [HIV] infection status; D50.0 Iron deficiency anemia secondary to blood loss (chronic); K21.9 Gastro-esophageal reflux disease without esophagitis; G40.909 Epilepsy, unspecified, not intractable, without status epilepticus; R21 Rash and other nonspecific skin eruption; K74.60 Unspecified cirrhosis of liver; R00.0 Tachycardia, unspecified; Z98.84 Bariatric surgery status; Z86.19 Personal history of other infectious and parasitic diseases; Z91.51 Personal history of suicidal behavior; Z56.0 Unemployment, unspecified
CPT/HCPCS: 80305; 80307

== ENCOUNTER 2023-11-27 16:16 | Inpatient (IN) | payer OTHER ==
[2023-11-27 17:22] VITALS: BMI 30.5
[2023-11-27] MEDS ORDERED: chlordiazePOXIDE HCL 25 MG CAPSULE PO PRN (18:53)
[2023-11-27] MEDS ORDERED: guaiFENesin 600 MG TABLET.ER (FP) PO PRN (18:55)
[2023-11-27] MEDS ORDERED: BISMUTH SUBSALICYLATE 524 MG/30 ML PO PRN (18:55)
[2023-11-27] MEDS ORDERED: BENZOCAINE/MENTHOL (CHLORASEPTIC ) LOZENGE MM PRN (18:55)
[2023-11-27] MEDS ORDERED: NICOTINE POLACRILEX 2 MG GUM BUC PRN (18:55)
[2023-11-27] MEDS ORDERED: NICOTINE POLACRILEX 2 MG LOZENGE BC PRN (18:55)
[2023-11-27] MEDS ORDERED: DICYCLOMINE HCL 10 MG CAPSULE PO PRN (18:55)
[2023-11-27] MEDS ORDERED: IBUPROFEN 400 MG TABLET (FP) PO PRN (18:55)
[2023-11-27] MEDS ORDERED: LOPERAMIDE HCL 2 MG CAPSULE PO PRN (18:55)
[2023-11-27] MEDS ORDERED: BENZONATATE 200 MG CAPSULE PO PRN (18:55)
[2023-11-27] MEDS ORDERED: POLYETHYLENE GLYCOL (HEALTHYLAX) 3350 17 GM PACKET PO PRN (18:55)
[2023-11-27] MEDS: METOPROLOL TARTRATE 25 MG TABLET (FP) PO ONE (19:52)
[2023-11-27] MEDS: THIAMINE 100 MG TABLET PO SCH (22:17)
[2023-11-27] MEDS: GABAPENTIN 300 MG CAPSULE PO SCH (22:17)
[2023-11-27] MEDS: chlordiazePOXIDE HCL 25 MG CAPSULE PO SCH (22:18)
[2023-11-27] MEDS: ONDANSETRON *ODT* 4 MG TABLET SL PRN (22:20)
[2023-11-27] MEDS: MELATONIN 5 MG TABLETS PO SCH (22:35)
[2023-11-28] MEDS: METHOCARBAMOL 500 MG TABLET PO PRN (03:28)
[2023-11-28] MEDS: BICTEGRAV/EMTRICIT/TENOFOV (BIKTARVY) 50-200-25 MG TABLET PO SCH (07:18)
[2023-11-28] MEDS: FAMOTIDINE 20 MG TABLET PO SCH (07:18)
[2023-11-28] MEDS: PRENATAL VITAMINS W/ FOLIC ACID TABLET (FP) PO SCH (10:08)
[2023-11-28] MEDS: FERROUS SO4 325 MG TABLET (FP) PO SCH (13:19)
[2023-11-28] MEDS: hydrOXYzine PAMOATE 25 MG CAPSULE (FP) PO SCH (13:19)
[2023-11-28] MEDS: QUEtiapine FUMARATE 100 MG TABLET (FP) PO SCH (22:14)
[2023-11-29] MEDS: chlordiazePOXIDE HCL 25 MG CAPSULE PO SCH (05:47)
[2023-11-29] MEDS: MAG HYDROX/AL HYDROX/SIMETH 30 ML UNIT-DOSE CUP PO PRN (09:16)
[2023-11-29] MEDS: MAGNESIUM HYDROX 2400MG/30ML ORAL SUSPENSION 30 ML CUP PO PRN (21:15)
[2023-11-30] MEDS: chlordiazePOXIDE HCL 10 MG CAPSULE PO PRN (01:30)
[2023-11-30] MEDS: chlordiazePOXIDE HCL 10 MG CAPSULE PO SCH (06:12)
[2023-12-01] MEDS: chlordiazePOXIDE HCL 10 MG CAPSULE PO SCH (05:42)
[2023-12-01 09:07] VITALS: RESP 18
[2023-12-01 17:05] VITALS: BP 135/88; PULSE 87; TEMP 98
[2023-12-02] MEDS ORDERED: chlordiazePOXIDE HCL 10 MG CAPSULE PO ONE (05:00)
== END 2023-12-01 17:50 | disposition home or self-care (01) | DRG 775 ==
LOC: YASAS 16:16 → Y6N 20:02
PROVIDERS: ADMIT Allergy & Immunology; ATTEND Psychiatry & Neurology Pain Medicine
PROC: HZ2ZZZZ Detoxification Services for Substance Abuse Treatment (ICD-10-PCS; principal; 2023-11-27)
DX: F10.230 Alcohol dependence with withdrawal, uncomplicated (principal); F19.282 Other psychoactive substance dependence with psychoactive substance-induced sleep disorder; F19.24 Other psychoactive substance dependence with psychoactive substance-induced mood disorder; F32.9 Major depressive disorder, single episode, unspecified; D64.9 Anemia, unspecified; Z21 Asymptomatic human immunodeficiency virus [HIV] infection status; K70.30 Alcoholic cirrhosis of liver without ascites; Z79.899 Other long term (current) drug therapy; Z87.11 Personal history of peptic ulcer disease; Z86.19 Personal history of other infectious and parasitic diseases
CPT/HCPCS: 80305; 80307; Q0162

== ENCOUNTER 2023-12-15 01:22 | Inpatient (IN) | payer OTHER ==
[2023-12-15 01:32] VITALS: BMI 27.6
[2023-12-15] MEDS ORDERED: BISMUTH SUBSALICYLATE 524 MG/30 ML PO PRN (01:40)
[2023-12-15] MEDS ORDERED: POLYETHYLENE GLYCOL (HEALTHYLAX) 3350 17 GM PACKET PO PRN (01:40)
[2023-12-15] MEDS ORDERED: BENZONATATE 200 MG CAPSULE PO PRN (01:40)
[2023-12-15] MEDS ORDERED: BENZOCAINE/MENTHOL (CHLORASEPTIC ) LOZENGE MM PRN (01:40)
[2023-12-15] MEDS ORDERED: guaiFENesin 600 MG TABLET.ER (FP) PO PRN (01:40)
[2023-12-15] MEDS ORDERED: NALOXONE (NARCAN) HCL 4 MG/0.1 ML SPRAY NS PRN (01:40)
[2023-12-15] MEDS ORDERED: NALOXONE HCL 0.4 MG/ML VIAL IM PRN (01:40)
[2023-12-15] MEDS ORDERED: NICOTINE POLACRILEX 2 MG GUM BUC PRN (01:40)
[2023-12-15] MEDS ORDERED: LOPERAMIDE HCL 2 MG CAPSULE PO PRN (01:40)
[2023-12-15] MEDS: ONDANSETRON *ODT* 4 MG TABLET SL PRN (02:15)
[2023-12-15] MEDS: hydrOXYzine PAMOATE 25 MG CAPSULE (FP) PO PRN (02:20)
[2023-12-15] MEDS: diazePAM 5 MG TABLET PO SCH (10:14)
[2023-12-15] MEDS: BICTEGRAV/EMTRICIT/TENOFOV (BIKTARVY) 50-200-25 MG TABLET PO SCH (10:14)
[2023-12-15] MEDS: FAMOTIDINE 20 MG TABLET PO SCH (10:14)
[2023-12-15] MEDS: PRENATAL VITAMINS W/ FOLIC ACID TABLET (FP) PO SCH (10:15)
[2023-12-15] MEDS: IBUPROFEN 600 MG TABLET (FP) PO PRN (10:20)
[2023-12-15] MEDS: diazePAM 5 MG TABLET PO PRN (13:14)
[2023-12-15] MEDS: GABAPENTIN 300 MG CAPSULE PO SCH (13:14)
[2023-12-15] MEDS: TRIMETHOBENZAMIDE HCL 200MG/2ML INJ IM PRN (13:15)
[2023-12-15] MEDS: FERROUS SO4 325 MG TABLET (FP) PO SCH (17:17)
[2023-12-15] MEDS ORDERED: MELATONIN 5 MG TABLETS PO SCH (22:00)
[2023-12-15] MEDS: QUEtiapine FUMARATE 200 MG TABLET PO SCH (22:31)
[2023-12-15] MEDS: THIAMINE 100 MG TABLET PO SCH (22:31)
[2023-12-15] MEDS: IBUPROFEN 400 MG TABLET (FP) PO PRN (22:35)
[2023-12-16] MEDS: chlordiazePOXIDE HCL 25 MG CAPSULE PO PRN (13:08)
[2023-12-16] MEDS: MAG HYDROX/AL HYDROX/SIMETH 30 ML UNIT-DOSE CUP PO PRN (13:08)
[2023-12-16] MEDS: chlordiazePOXIDE HCL 25 MG CAPSULE PO SCH (16:52)
[2023-12-16] MEDS: MAGNESIUM HYDROX 2400MG/30ML ORAL SUSPENSION 30 ML CUP PO PRN (19:19)
[2023-12-17] MEDS: chlordiazePOXIDE HCL 25 MG CAPSULE PO SCH (05:58)
[2023-12-17] MEDS ORDERED: diazePAM 5 MG TABLET PO SCH (06:00)
[2023-12-17] MEDS: FAMOTIDINE 20 MG TABLET PO SCH (06:03)
[2023-12-17] MEDS: hydrOXYzine PAMOATE 25 MG CAPSULE (FP) PO PRN (12:45)
[2023-12-18] MEDS: DICYCLOMINE HCL 10 MG CAPSULE PO PRN (02:13)
[2023-12-18] MEDS: chlordiazePOXIDE HCL 10 MG CAPSULE PO SCH (05:45)
[2023-12-18] MEDS ORDERED: diazePAM 5 MG TABLET PO SCH (06:00)
[2023-12-18] MEDS: METHOCARBAMOL 500 MG TABLET PO PRN (10:05)
[2023-12-18 11:24] LABS: HEMATOCRIT 31.5 % (35.4-49); HEMOGLOBIN 10.6 GM/dL (11.7-16.9); MCH 30.7 pg (25.7-33.7); MCHC 33.7 g/dl (32.0-35.9); MEAN CELL VOLUME 91.1 fl (80-96); MEAN PLT VOLUME 8.8 fl (7.5-11.1); PLATELET COUNT 115 10^3/uL (134-434); RBC 3.45 M/mm3 (4.00-5.60); RDW 17.6 % (11.9-15.9); WHITE BLOOD COUNT 2.5 K/mm3 (4.0-10.0)
[2023-12-18 11:55] LABS: POTASSIUM 5.3 mmol/L (3.5-5.1)
[2023-12-18 12:33] LABS: ALBUMIN 3.3 g/dl (3.4-5.0); BLOOD UREA NITROGEN 14.7 mg/dL (7-18); CALCIUM 9.3 mg/dL (8.5-10.1)
[2023-12-18 12:36] LABS: CREATININE 0.8 mg/dL (0.55-1.3)
[2023-12-18 12:38] LABS: BILIRUBIN,TOTAL 0.6 mg/dL (0.2-1); TOT PROT 8.1 g/dl (6.4-8.2)
[2023-12-18] MEDS: SODIUM POLYSTYRENE SULFONATE 15 GM/60 ML BOTTLE PO ONE (12:40)
[2023-12-18] MEDS: chlordiazePOXIDE HCL 10 MG CAPSULE PO PRN (13:05)
[2023-12-19] MEDS: chlordiazePOXIDE HCL 10 MG CAPSULE PO SCH (05:51)
[2023-12-19] MEDS ORDERED: diazePAM 5 MG TABLET PO ONE (06:00)
[2023-12-20] MEDS: chlordiazePOXIDE HCL 10 MG CAPSULE PO ONE (04:47)
[2023-12-20 17:35] VITALS: BP 147/95; PULSE 83; RESP 17; TEMP 97.6
== END 2023-12-20 19:50 | disposition home or self-care (01) | DRG 775 ==
LOC: YASAS 01:22 → Y6N 02:51
PROVIDERS: ADMIT Allergy & Immunology; ATTEND Surgery
PROC: HZ2ZZZZ Detoxification Services for Substance Abuse Treatment (ICD-10-PCS; principal; 2023-12-15)
DX: F10.230 Alcohol dependence with withdrawal, uncomplicated (principal); F10.282 Alcohol dependence with alcohol-induced sleep disorder; F10.24 Alcohol dependence with alcohol-induced mood disorder; F41.9 Anxiety disorder, unspecified; F32.A Depression, unspecified; Z21 Asymptomatic human immunodeficiency virus [HIV] infection status; D50.0 Iron deficiency anemia secondary to blood loss (chronic); D61.818 Other pancytopenia; K21.9 Gastro-esophageal reflux disease without esophagitis; Z87.11 Personal history of peptic ulcer disease; Z87.19 Personal history of other diseases of the digestive system
CPT/HCPCS: 36415; 80053; 80305; 80307; 84132; 85027; 86593; 86780; 93005; 93010; Q0162

== ENCOUNTER 2024-01-12 17:48 | Inpatient (IN) | payer OTHER ==
[2024-01-12 18:23] VITALS: BMI 27.3
[2024-01-12] MEDS ORDERED: MAG HYDROX/AL HYDROX/SIMETH 30 ML UNIT-DOSE CUP PO PRN (18:39)
[2024-01-12] MEDS ORDERED: guaiFENesin 600 MG TABLET.ER (FP) PO PRN (18:39)
[2024-01-12] MEDS ORDERED: POLYETHYLENE GLYCOL (HEALTHYLAX) 3350 17 GM PACKET PO PRN (18:39)
[2024-01-12] MEDS ORDERED: DICYCLOMINE HCL 10 MG CAPSULE PO PRN (18:39)
[2024-01-12] MEDS ORDERED: ONDANSETRON *ODT* 4 MG TABLET SL PRN (18:39)
[2024-01-12] MEDS ORDERED: ACETAMINOPHEN 325 MG TABLET (FP) PO PRN (18:39)
[2024-01-12] MEDS ORDERED: BISMUTH SUBSALICYLATE 524 MG/30 ML PO PRN (18:39)
[2024-01-12] MEDS ORDERED: LOPERAMIDE HCL 2 MG CAPSULE PO PRN (18:39)
[2024-01-12] MEDS ORDERED: BENZOCAINE/MENTHOL (CHLORASEPTIC ) LOZENGE MM PRN (18:39)
[2024-01-12] MEDS ORDERED: BENZONATATE 200 MG CAPSULE PO PRN (18:39)
[2024-01-12] MEDS ORDERED: MAGNESIUM HYDROX 2400MG/30ML ORAL SUSPENSION 30 ML CUP PO PRN (18:39)
[2024-01-12] MEDS: METHOCARBAMOL 500 MG TABLET PO PRN (21:11)
[2024-01-12] MEDS: hydrOXYzine PAMOATE 25 MG CAPSULE (FP) PO PRN (21:11)
[2024-01-12] MEDS: GABAPENTIN 300 MG CAPSULE PO SCH (21:11)
[2024-01-12] MEDS: THIAMINE 100 MG TABLET PO SCH (21:11)
[2024-01-12] MEDS: MELATONIN 5 MG TABLETS PO SCH (21:11)
[2024-01-13] MEDS: VITAMINS A AND D TOPICAL OINTMENT TP SCH
[2024-01-13] MEDS: BICTEGRAV/EMTRICIT/TENOFOV (BIKTARVY) 50-200-25 MG TABLET PO SCH (07:12)
[2024-01-13] MEDS: FAMOTIDINE 20 MG TABLET PO SCH (10:17)
[2024-01-13] MEDS: PRENATAL VITAMINS W/ FOLIC ACID TABLET (FP) PO SCH (10:17)
[2024-01-13] MEDS: chlordiazePOXIDE HCL 25 MG CAPSULE PO SCH (10:17)
[2024-01-13] MEDS: chlordiazePOXIDE HCL 25 MG CAPSULE PO PRN (13:09)
[2024-01-13] MEDS: FERROUS SO4 325 MG TABLET (FP) PO SCH (13:39)
[2024-01-13] MEDS: QUEtiapine FUMARATE 200 MG TABLET PO SCH (22:22)
[2024-01-14] MEDS: chlordiazePOXIDE HCL 25 MG CAPSULE PO SCH (05:52)
[2024-01-15] MEDS: chlordiazePOXIDE HCL 10 MG CAPSULE PO SCH (05:40)
[2024-01-15] MEDS: chlordiazePOXIDE HCL 10 MG CAPSULE PO PRN (13:15)
[2024-01-16] MEDS: chlordiazePOXIDE HCL 10 MG CAPSULE PO SCH (05:58)
[2024-01-16 09:07] VITALS: BP 133/93; PULSE 86; RESP 18; TEMP 97.7
[2024-01-17] MEDS ORDERED: chlordiazePOXIDE HCL 10 MG CAPSULE PO ONE (05:00)
== END 2024-01-16 12:22 | disposition home or self-care (01) | DRG 775 ==
LOC: YASAS 17:48 → Y6N 19:27
PROVIDERS: ADMIT Allergy & Immunology; ATTEND Surgery
PROC: HZ2ZZZZ Detoxification Services for Substance Abuse Treatment (ICD-10-PCS; principal; 2024-01-12)
DX: F10.230 Alcohol dependence with withdrawal, uncomplicated (principal); F17.210 Nicotine dependence, cigarettes, uncomplicated; F10.280 Alcohol dependence with alcohol-induced anxiety disorder; F10.282 Alcohol dependence with alcohol-induced sleep disorder; F10.24 Alcohol dependence with alcohol-induced mood disorder; F32.A Depression, unspecified; F41.9 Anxiety disorder, unspecified; Z21 Asymptomatic human immunodeficiency virus [HIV] infection status; K21.00 Gastro-esophageal reflux disease with esophagitis, without bleeding; K70.30 Alcoholic cirrhosis of liver without ascites; D64.9 Anemia, unspecified; Z20.2 Contact with and (suspected) exposure to infections with a predominantly sexual mode of transmission; Z86.69 Personal history of other diseases of the nervous system and sense organs; Z87.11 Personal history of peptic ulcer disease; Z79.899 Other long term (current) drug therapy
CPT/HCPCS: 80305; 80307; 93005; 93010

== ENCOUNTER 2024-02-03 15:38 | Inpatient (IN) | payer OTHER ==
[2024-02-03 16:09] VITALS: BMI 29.5
[2024-02-03] MEDS ORDERED: BENZONATATE 200 MG CAPSULE PO PRN (16:19)
[2024-02-03] MEDS ORDERED: ACETAMINOPHEN 325 MG TABLET (FP) PO PRN (16:19)
[2024-02-03] MEDS ORDERED: MAG HYDROX/AL HYDROX/SIMETH 30 ML UNIT-DOSE CUP PO PRN (16:19)
[2024-02-03] MEDS ORDERED: LOPERAMIDE HCL 2 MG CAPSULE PO PRN (16:19)
[2024-02-03] MEDS ORDERED: ONDANSETRON *ODT* 4 MG TABLET SL PRN (16:19)
[2024-02-03] MEDS ORDERED: DICYCLOMINE HCL 10 MG CAPSULE PO PRN (16:19)
[2024-02-03] MEDS ORDERED: BISMUTH SUBSALICYLATE 524 MG/30 ML PO PRN (16:19)
[2024-02-03] MEDS ORDERED: IBUPROFEN 400 MG TABLET (FP) PO PRN (16:19)
[2024-02-03] MEDS ORDERED: MAGNESIUM HYDROX 2400MG/30ML ORAL SUSPENSION 30 ML CUP PO PRN (16:19)
[2024-02-03] MEDS ORDERED: chlordiazePOXIDE HCL 25 MG CAPSULE ONE (17:11)
[2024-02-03] MEDS ORDERED: propRANOLol HCL 10 MG TABLET ONE (17:12)
[2024-02-03] MEDS: propRANOLol HCL 10 MG TABLET PO ONE (17:15)
[2024-02-03] MEDS: chlordiazePOXIDE HCL 25 MG CAPSULE PO SCH (17:15)
[2024-02-03] MEDS: chlordiazePOXIDE HCL 25 MG CAPSULE PO PRN (20:04)
[2024-02-03] MEDS: THIAMINE 100 MG TABLET PO SCH (22:13)
[2024-02-03] MEDS: MELATONIN 5 MG TABLETS PO SCH (22:14)
[2024-02-03] MEDS: GABAPENTIN 300 MG CAPSULE PO SCH (22:14)
[2024-02-03] MEDS: METHOCARBAMOL 500 MG TABLET PO PRN (22:14)
[2024-02-04] MEDS: hydrOXYzine PAMOATE 25 MG CAPSULE (FP) PO PRN (01:13)
[2024-02-04] MEDS: BICTEGRAV/EMTRICIT/TENOFOV (BIKTARVY) 50-200-25 MG TABLET PO SCH (07:26)
[2024-02-04] MEDS: PRENATAL VITAMINS W/ FOLIC ACID TABLET (FP) PO SCH (10:15)
[2024-02-04] MEDS: FAMOTIDINE 20 MG TABLET PO SCH (10:15)
[2024-02-04] MEDS: NALTREXONE HCL 50 MG TABLET PO SCH (11:53)
[2024-02-04 12:09] LABS: HEMATOCRIT 29.4 % (35.4-49); MCH 31.2 pg (25.7-33.7); MEAN CELL VOLUME 91.8 fl (80-96); MEAN PLT VOLUME 7.9 fl (7.5-11.1); PLATELET COUNT 227 10^3/uL (134-434); RBC 3.21 M/mm3 (4.00-5.60); RDW 20.6 % (11.9-15.9); WHITE BLOOD COUNT 4.3 K/mm3 (4.0-10.0)
[2024-02-04 12:36] LABS: POTASSIUM 3.8 mmol/L (3.5-5.1)
[2024-02-04 12:47] LABS: BLOOD UREA NITROGEN 14.8 mg/dL (7-18); CALCIUM 8.6 mg/dL (8.5-10.1)
[2024-02-04 12:50] LABS: CREATININE 0.8 mg/dL (0.55-1.3)
[2024-02-04 12:52] LABS: BILIRUBIN,TOTAL 0.8 mg/dL (0.2-1); TOT PROT 7.6 g/dl (6.4-8.2)
[2024-02-04] MEDS: FERROUS SO4 325 MG TABLET (FP) PO SCH (13:52)
[2024-02-04] MEDS: BENZOCAINE/MENTHOL (CHLORASEPTIC ) LOZENGE MM PRN (17:35)
[2024-02-04] MEDS: QUEtiapine FUMARATE 200 MG TABLET PO SCH (22:18)
[2024-02-04] MEDS: guaiFENesin 600 MG TABLET.ER (FP) PO PRN (22:18)
[2024-02-05] MEDS: chlordiazePOXIDE HCL 25 MG CAPSULE PO SCH (05:53)
[2024-02-05] MEDS: MUPIROCIN 2% TOPICAL OINTMENT 22 GM TUBE TP SCH (10:09)
[2024-02-05] MEDS: METOPROLOL TARTRATE 25 MG TABLET (FP) PO ONE (13:56)
[2024-02-06] MEDS: chlordiazePOXIDE HCL 10 MG CAPSULE PO SCH (05:55)
[2024-02-06] MEDS: METOPROLOL TARTRATE 25 MG TABLET (FP) PO SCH (11:46)
[2024-02-06] MEDS: guaiFENesin 200 MG/10 ML 10 ML UNIT-DOSE CUPS PO PRN (11:48)
[2024-02-06] MEDS: chlordiazePOXIDE HCL 10 MG CAPSULE PO PRN (13:35)
[2024-02-06] MEDS: POLYETHYLENE GLYCOL (HEALTHYLAX) 3350 17 GM PACKET PO PRN (13:57)
[2024-02-06] MEDS: AMMONIUM LACTATE 12% LOTION 225 GM BOTTLE TP PRN (21:04)
[2024-02-07] MEDS: chlordiazePOXIDE HCL 10 MG CAPSULE PO SCH (05:51)
[2024-02-07] MEDS: QUEtiapine FUMARATE 50 MG TABLET PO SCH (10:20)
[2024-02-08] MEDS: chlordiazePOXIDE HCL 10 MG CAPSULE PO ONE (05:46)
[2024-02-09] MEDS: IBUPROFEN 600 MG TABLET (FP) PO PRN (09:36)
[2024-02-09] MEDS: HYDROCHLOROTHIAZIDE 25 MG TABLET (FP) PO SCH (09:39)
[2024-02-09] MEDS: FLUOCINONIDE 0.05% TOP OINT (60 GM TUBE) TP SCH (10:45)
[2024-02-09] MEDS: NALOXONE (NYS OPIOID OVERDOSE PROGRAM) 4 MG/0.1 ML SPRAY NS PRN (10:56)
[2024-02-09 13:02] VITALS: BP 149/106; PULSE 80; RESP 17; TEMP 97.5
== END 2024-02-09 12:45 | disposition other institution (70) | DRG 775 ==
LOC: YASAS 15:38 → Y3N 17:38
PROVIDERS: ADMIT Allergy & Immunology; ATTEND Surgery
PROC: HZ2ZZZZ Detoxification Services for Substance Abuse Treatment (ICD-10-PCS; principal; 2024-02-03)
DX: F10.230 Alcohol dependence with withdrawal, uncomplicated (principal); F10.280 Alcohol dependence with alcohol-induced anxiety disorder; F31.9 Bipolar disorder, unspecified; Z21 Asymptomatic human immunodeficiency virus [HIV] infection status; G47.00 Insomnia, unspecified; I10 Essential (primary) hypertension; K21.9 Gastro-esophageal reflux disease without esophagitis; R09.81 Nasal congestion; Z87.11 Personal history of peptic ulcer disease
CPT/HCPCS: 0241U-QW; 36415; 80053; 80305; 80307; 85027; 87811

== ENCOUNTER 2024-02-09 12:57 | Inpatient (IN) | payer OTHER ==
[2024-02-09] MEDS ORDERED: LOPERAMIDE HCL 2 MG CAPSULE PO PRN (13:34)
[2024-02-09] MEDS ORDERED: ACETAMINOPHEN 325 MG TABLET (FP) PO PRN (13:34)
[2024-02-09] MEDS ORDERED: MAG HYDROX/AL HYDROX/SIMETH 30 ML UNIT-DOSE CUP PO PRN (13:34)
[2024-02-09] MEDS ORDERED: POLYETHYLENE GLYCOL (HEALTHYLAX) 3350 17 GM PACKET PO PRN (13:34)
[2024-02-09] MEDS ORDERED: IBUPROFEN 400 MG TABLET (FP) PO PRN (13:34)
[2024-02-09] MEDS: METHOCARBAMOL 500 MG TABLET PO PRN (14:50)
[2024-02-09] MEDS: GABAPENTIN 300 MG CAPSULE PO SCH (14:50)
[2024-02-09] MEDS: FERROUS SO4 325 MG TABLET (FP) PO SCH (14:50)
[2024-02-09] MEDS: MUPIROCIN 2% TOPICAL OINTMENT 22 GM TUBE TP SCH (21:43)
[2024-02-09] MEDS: THIAMINE 100 MG TABLET PO SCH (21:43)
[2024-02-09] MEDS: MELATONIN 5 MG TABLETS PO SCH (21:43)
[2024-02-09] MEDS: FLUOCINONIDE 0.05% GEL (15 GM) TP SCH (21:43)
[2024-02-09] MEDS: METOPROLOL TARTRATE 25 MG TABLET (FP) PO SCH (21:43)
[2024-02-09] MEDS: QUEtiapine FUMARATE 200 MG TABLET PO SCH (21:43)
[2024-02-10] MEDS: hydrOXYzine PAMOATE 25 MG CAPSULE (FP) PO PRN (06:16)
[2024-02-10] MEDS: BICTEGRAV/EMTRICIT/TENOFOV (BIKTARVY) 50-200-25 MG TABLET PO SCH (07:15)
[2024-02-10] MEDS: guaiFENesin 600 MG TABLET.ER (FP) PO PRN (07:27)
[2024-02-10] MEDS: PRENATAL VITAMINS W/ FOLIC ACID TABLET (FP) PO SCH (10:16)
[2024-02-10] MEDS: FAMOTIDINE 20 MG TABLET PO SCH (10:17)
[2024-02-10] MEDS: QUEtiapine FUMARATE 50 MG TABLET PO SCH (10:18)
[2024-02-10] MEDS ORDERED: P-EPHED 60MG/TRIPROLIDI 2.5MG TABLET PO PRN (14:56)
[2024-02-10] MEDS: IBUPROFEN 600 MG TABLET (FP) PO PRN (14:58)
[2024-02-10] MEDS: BENZONATATE 200 MG CAPSULE PO PRN (14:58)
[2024-02-10] MEDS: BENZOCAINE/MENTHOL (CHLORASEPTIC ) LOZENGE MM PRN (15:00)
[2024-02-10] MEDS: SULFAMETHOXAZOLE/TRIMETHOPRIM 800MG/160MG D.S. TABLET PO SCH (15:44)
[2024-02-10] MEDS: OXYMETAZOLINE 0.05% NASAL SOLUTION 15 ML BOTTLE NS PRN (21:40)
[2024-02-11] MEDS: BICTEGRAV/EMTRICIT/TENOFOV (BIKTARVY) 50-200-25 MG TABLET PO SCH (06:32)
[2024-02-11] MEDS: FAMOTIDINE 20 MG TABLET PO SCH (06:32)
[2024-02-11] MEDS: NALTREXONE HCL 50 MG TABLET PO SCH (09:45)
[2024-02-11] MEDS: MAGNESIUM HYDROX 2400MG/30ML ORAL SUSPENSION 30 ML CUP PO PRN (09:51)
[2024-02-11 13:21] LABS: INR 1.03 (0.83-1.09); PROTHROMBIN TIME (PATIENT) 11.6 SEC (9.7-13.0)
[2024-02-12] MEDS ORDERED: TUBERCULIN PPD 5 TU/0.1ML VIAL ID ONE (10:33)
[2024-02-12] MEDS: RIFAXIMIN 550 MG TABLET PO SCH (22:48)
[2024-02-15] MEDS: METHOCARBAMOL 500 MG TABLET PO PRN (18:56)
[2024-02-16] MEDS ORDERED: QUEtiapine FUMARATE 25 MG TABLET ONE (08:18)
[2024-02-16] MEDS: METHOCARBAMOL 500 MG TABLET PO PRN (15:47)
[2024-02-18 07:05] VITALS: TEMP 98.1
[2024-02-19 07:08] VITALS: BP 131/87; PULSE 70; RESP 16
[2024-02-19] MEDS: NALOXONE (NYS OPIOID OVERDOSE PROGRAM) 4 MG/0.1 ML SPRAY NS SCH (15:40)
== END 2024-02-19 15:40 | disposition home or self-care (01) | DRG 772 ==
LOC: YASAS 12:57 → Y5N 12:59
PROVIDERS: ADMIT Psychiatry & Neurology Pain Medicine; ATTEND Psychiatry & Neurology Pain Medicine
PROC: HZ42ZZZ Group Counseling for Substance Abuse Treatment, Cognitive-Behavioral (ICD-10-PCS; principal; 2024-02-09)
DX: F10.20 Alcohol dependence, uncomplicated (principal); F10.280 Alcohol dependence with alcohol-induced anxiety disorder; F10.282 Alcohol dependence with alcohol-induced sleep disorder; F10.24 Alcohol dependence with alcohol-induced mood disorder; Z21 Asymptomatic human immunodeficiency virus [HIV] infection status; E72.20 Disorder of urea cycle metabolism, unspecified; D50.0 Iron deficiency anemia secondary to blood loss (chronic); K70.30 Alcoholic cirrhosis of liver without ascites; K21.00 Gastro-esophageal reflux disease with esophagitis, without bleeding; Z87.11 Personal history of peptic ulcer disease; Z86.19 Personal history of other infectious and parasitic diseases; Z86.69 Personal history of other diseases of the nervous system and sense organs
CPT/HCPCS: 36415; 82140; 83735; 85610; 86803

== ENCOUNTER 2024-03-21 08:08 | Inpatient (IN) | payer OTHER ==
[2024-03-21 08:49] VITALS: BMI 29.5
[2024-03-21] MEDS ORDERED: MAGNESIUM HYDROX 2400MG/30ML ORAL SUSPENSION 30 ML CUP PO PRN (08:50)
[2024-03-21] MEDS ORDERED: MAG HYDROX/AL HYDROX/SIMETH 30 ML UNIT-DOSE CUP PO PRN (08:50)
[2024-03-21] MEDS ORDERED: POLYETHYLENE GLYCOL (HEALTHYLAX) 3350 17 GM PACKET PO PRN (08:50)
[2024-03-21] MEDS ORDERED: DICYCLOMINE HCL 10 MG CAPSULE PO PRN (08:50)
[2024-03-21] MEDS ORDERED: ACETAMINOPHEN 325 MG TABLET (FP) PO PRN (08:50)
[2024-03-21] MEDS ORDERED: BISMUTH SUBSALICYLATE 524 MG/30 ML PO PRN (08:50)
[2024-03-21] MEDS ORDERED: NICOTINE POLACRILEX 2 MG LOZENGE BC PRN (08:50)
[2024-03-21] MEDS ORDERED: LOPERAMIDE HCL 2 MG CAPSULE PO PRN (08:50)
[2024-03-21] MEDS ORDERED: BENZONATATE 200 MG CAPSULE PO PRN (08:50)
[2024-03-21] MEDS ORDERED: IBUPROFEN 600 MG TABLET (FP) PO PRN (08:50)
[2024-03-21] MEDS ORDERED: NICOTINE POLACRILEX 2 MG GUM BUC PRN (08:50)
[2024-03-21] MEDS ORDERED: ONDANSETRON *ODT* 4 MG TABLET SL PRN (08:50)
[2024-03-21] MEDS ORDERED: IBUPROFEN 400 MG TABLET (FP) PO PRN (08:50)
[2024-03-21] MEDS ORDERED: BENZOCAINE/MENTHOL (CHLORASEPTIC ) LOZENGE MM PRN (08:50)
[2024-03-21] MEDS ORDERED: guaiFENesin 600 MG TABLET.ER (FP) PO PRN (08:50)
[2024-03-21] MEDS: METOPROLOL TARTRATE 25 MG TABLET (FP) PO SCH (09:34)
[2024-03-21] MEDS ORDERED: levETIRAcetam 500 MG TABLET (FP) PO ONE (09:38)
[2024-03-21] MEDS ORDERED: PRENATAL VITAMINS W/ FOLIC ACID TABLET (FP) PO ONE (09:38)
[2024-03-21] MEDS: levETIRAcetam 500 MG TABLET (FP) PO SCH (09:43)
[2024-03-21] MEDS: PRENATAL VITAMINS W/ FOLIC ACID TABLET (FP) PO SCH (09:43)
[2024-03-21] MEDS ORDERED: chlordiazePOXIDE HCL 25 MG CAPSULE ONE (10:18)
[2024-03-21] MEDS: chlordiazePOXIDE HCL 25 MG CAPSULE PO SCH (10:27)
[2024-03-21] MEDS: BICTEGRAV/EMTRICIT/TENOFOV (BIKTARVY) 50-200-25 MG TABLET PO SCH (10:27)
[2024-03-21] MEDS ORDERED: METHOCARBAMOL 500 MG TABLET ONE (13:19)
[2024-03-21] MEDS: METHOCARBAMOL 500 MG TABLET PO PRN (13:29)
[2024-03-21] MEDS: GABAPENTIN 300 MG CAPSULE PO SCH (13:50)
[2024-03-21] MEDS: FERROUS SO4 325 MG TABLET (FP) PO SCH (13:50)
[2024-03-21] MEDS: MELATONIN 5 MG TABLETS PO SCH (21:39)
[2024-03-21] MEDS: THIAMINE 100 MG TABLET PO SCH (21:39)
[2024-03-21] MEDS: hydrOXYzine PAMOATE 25 MG CAPSULE (FP) PO PRN (21:42)
[2024-03-22] MEDS: chlordiazePOXIDE HCL 25 MG CAPSULE PO PRN (02:27)
[2024-03-22] MEDS: FAMOTIDINE 20 MG TABLET PO SCH (05:49)
[2024-03-22] MEDS: QUEtiapine FUMARATE 50 MG TABLET PO SCH (09:28)
[2024-03-22 17:32] VITALS: BP 134/91; PULSE 96; RESP 18; TEMP 97.8
[2024-03-22] MEDS ORDERED: QUEtiapine FUMARATE 200 MG TABLET PO SCH (22:00)
[2024-03-23] MEDS ORDERED: chlordiazePOXIDE HCL 25 MG CAPSULE PO SCH (05:00)
[2024-03-23] MEDS ORDERED: SULFAMETHOXAZOLE/TRIMETHOPRIM 800MG/160MG D.S. TABLET PO SCH (10:00)
[2024-03-24] MEDS ORDERED: chlordiazePOXIDE HCL 10 MG CAPSULE PO PRN
[2024-03-24] MEDS ORDERED: chlordiazePOXIDE HCL 10 MG CAPSULE PO SCH (05:00)
[2024-03-25] MEDS ORDERED: chlordiazePOXIDE HCL 10 MG CAPSULE PO SCH (05:00)
[2024-03-26] MEDS ORDERED: chlordiazePOXIDE HCL 10 MG CAPSULE PO ONE (05:00)
== END 2024-03-22 17:54 | disposition left against medical advice (07) | DRG 770 ==
LOC: YASAS 08:08 → Y6N 13:08
PROVIDERS: ADMIT Neuromusculoskeletal Medicine & OMM; ATTEND Surgery
PROC: HZ2ZZZZ Detoxification Services for Substance Abuse Treatment (ICD-10-PCS; principal; 2024-03-21)
DX: F10.230 Alcohol dependence with withdrawal, uncomplicated (principal); F17.210 Nicotine dependence, cigarettes, uncomplicated; F31.9 Bipolar disorder, unspecified; F10.280 Alcohol dependence with alcohol-induced anxiety disorder; F10.282 Alcohol dependence with alcohol-induced sleep disorder; Z21 Asymptomatic human immunodeficiency virus [HIV] infection status; K21.9 Gastro-esophageal reflux disease without esophagitis; K70.30 Alcoholic cirrhosis of liver without ascites; Z79.899 Other long term (current) drug therapy; Z86.2 Personal history of diseases of the blood and blood-forming organs and certain disorders involving the immune mechanism; Z87.11 Personal history of peptic ulcer disease; Z87.19 Personal history of other diseases of the digestive system

== ENCOUNTER 2024-05-11 16:35 | Inpatient (IN) | payer OTHER ==
[2024-05-11 16:59] VITALS: BMI 27.3
[2024-05-11] MEDS ORDERED: BENZONATATE 200 MG CAPSULE PO PRN (17:05)
[2024-05-11] MEDS ORDERED: ONDANSETRON *ODT* 4 MG TABLET SL PRN (17:05)
[2024-05-11] MEDS ORDERED: BENZOCAINE/MENTHOL (CHLORASEPTIC ) LOZENGE MM PRN (17:05)
[2024-05-11] MEDS ORDERED: LOPERAMIDE HCL 2 MG CAPSULE PO PRN (17:05)
[2024-05-11] MEDS ORDERED: DICYCLOMINE HCL 10 MG CAPSULE PO PRN (17:05)
[2024-05-11] MEDS ORDERED: BISMUTH SUBSALICYLATE 524 MG/30 ML PO PRN (17:05)
[2024-05-11] MEDS ORDERED: MAG HYDROX/AL HYDROX/SIMETH 30 ML UNIT-DOSE CUP PO PRN (17:05)
[2024-05-11] MEDS ORDERED: MAGNESIUM HYDROX 2400MG/30ML ORAL SUSPENSION 30 ML CUP PO PRN (17:05)
[2024-05-11] MEDS ORDERED: NALOXONE (NARCAN) HCL 4 MG/0.1 ML SPRAY NS PRN (17:05)
[2024-05-11] MEDS ORDERED: ACETAMINOPHEN 325 MG TABLET (FP) PO PRN (17:05)
[2024-05-11] MEDS ORDERED: guaiFENesin 600 MG TABLET.ER (FP) PO PRN (17:05)
[2024-05-11] MEDS ORDERED: IBUPROFEN 400 MG TABLET (FP) PO PRN (17:05)
[2024-05-11] MEDS ORDERED: POLYETHYLENE GLYCOL (HEALTHYLAX) 3350 17 GM PACKET PO PRN (17:05)
[2024-05-11] MEDS ORDERED: chlordiazePOXIDE HCL 25 MG CAPSULE PO PRN (17:08)
[2024-05-11] MEDS: chlordiazePOXIDE HCL 25 MG CAPSULE PO SCH (18:30)
[2024-05-11] MEDS: propRANOLol HCL 10 MG TABLET PO ONE (18:30)
[2024-05-11] MEDS ORDERED: propRANOLol HCL 10 MG TABLET ONE (19:14)
[2024-05-11] MEDS ORDERED: chlordiazePOXIDE HCL 25 MG CAPSULE ONE (19:14)
[2024-05-11] MEDS: METHOCARBAMOL 500 MG TABLET PO PRN (19:38)
[2024-05-11] MEDS: TRIMETHOBENZAMIDE HCL 200MG/2ML INJ IM ONE (19:38)
[2024-05-11] MEDS: METOPROLOL TARTRATE 25 MG TABLET (FP) PO SCH (19:57)
[2024-05-11] MEDS ORDERED: levETIRAcetam 500 MG TABLET (FP) PO SCH (22:00)
[2024-05-11] MEDS ORDERED: METOPROLOL TARTRATE 25 MG TABLET (FP) PO SCH (22:00)
[2024-05-11] MEDS: levETIRAcetam 250 MG TABLET PO SCH (22:21)
[2024-05-11] MEDS: THIAMINE 100 MG TABLET PO SCH (22:21)
[2024-05-11] MEDS: MELATONIN 5 MG TABLETS PO SCH (22:21)
[2024-05-11] MEDS: GABAPENTIN 300 MG CAPSULE PO SCH (22:21)
[2024-05-12] MEDS: FAMOTIDINE 20 MG TABLET PO SCH (05:51)
[2024-05-12] MEDS: SULFAMETHOXAZOLE/TRIMETHOPRIM 800MG/160MG D.S. TABLET PO SCH (09:49)
[2024-05-12] MEDS: PRENATAL VITAMINS W/ FOLIC ACID TABLET (FP) PO SCH (09:49)
[2024-05-12] MEDS: BICTEGRAV/EMTRICIT/TENOFOV (BIKTARVY) 50-200-25 MG TABLET PO SCH (09:49)
[2024-05-12] MEDS: QUEtiapine FUMARATE 50 MG TABLET PO SCH (10:06)
[2024-05-12] MEDS: NALTREXONE HCL 50 MG TABLET PO SCH (10:25)
[2024-05-12 11:11] LABS: POTASSIUM 3.7 mmol/L (3.5-5.1)
[2024-05-12 11:13] LABS: HEMATOCRIT 37.2 % (35.4-49); HEMOGLOBIN 12.7 GM/dL (11.7-16.9); MCH 33.6 pg (25.7-33.7); MCHC 34.3 g/dl (32.0-35.9); MEAN CELL VOLUME 98.1 fl (80-96); MEAN PLT VOLUME 8.9 fl (7.5-11.1); PLATELET COUNT 145 10^3/uL (134-434); RBC 3.79 M/mm3 (4.00-5.60); RDW 17.3 % (11.9-15.9)
[2024-05-12 11:18] LABS: ALBUMIN 3.1 g/dl (3.4-5.0); BLOOD UREA NITROGEN 9.7 mg/dL (7-18)
[2024-05-12 11:22] LABS: BILIRUBIN,TOTAL 2.1 mg/dL (0.2-1); TOT PROT 8.7 g/dl (6.4-8.2)
[2024-05-12] MEDS ORDERED: LORazepam 1 MG TABLET PO PRN (12:15)
[2024-05-12] MEDS: FERROUS SO4 325 MG TABLET (FP) PO SCH (13:08)
[2024-05-12] MEDS: IBUPROFEN 600 MG TABLET (FP) PO PRN (17:20)
[2024-05-12] MEDS: LORazepam 2 MG TABLET PO SCH (17:20)
[2024-05-12] MEDS: QUEtiapine FUMARATE 200 MG TABLET PO SCH (22:23)
[2024-05-13] MEDS ORDERED: chlordiazePOXIDE HCL 25 MG CAPSULE PO SCH (05:00)
[2024-05-13] MEDS: LORazepam 1 MG TABLET PO SCH (05:52)
[2024-05-13] MEDS: BICTEGRAV/EMTRICIT/TENOFOV (BIKTARVY) 50-200-25 MG TABLET PO SCH (07:05)
[2024-05-13] MEDS: METOPROLOL TARTRATE 50 MG TABLET (FP) PO SCH (22:35)
[2024-05-13] MEDS: METHYL SALICYLATE/MENTHOL 30 GM TUBE TP SCH (22:36)
[2024-05-14] MEDS ORDERED: LORazepam 0.5 MG TABLET PO PRN
[2024-05-14] MEDS ORDERED: chlordiazePOXIDE HCL 10 MG CAPSULE PO PRN ×2
[2024-05-14] MEDS ORDERED: chlordiazePOXIDE HCL 10 MG CAPSULE PO SCH (05:00)
[2024-05-14] MEDS: LORazepam 0.5 MG TABLET PO SCH (05:55)
[2024-05-14] MEDS: METHOCARBAMOL 750 MG TABLET PO PRN (05:57)
[2024-05-14] MEDS: PENICILLIN G BENZATHINE 2,400,000 UNIT/4 ML PFS IM ONE (10:55)
[2024-05-14 11:23] LABS: POTASSIUM 3.4 mmol/L (3.5-5.1)
[2024-05-14 11:31] LABS: ALBUMIN 2.7 g/dl (3.4-5.0); BLOOD UREA NITROGEN 16.6 mg/dL (7-18); CALCIUM 7.5 mg/dL (8.5-10.1)
[2024-05-14 11:35] LABS: CREATININE 1.2 mg/dL (0.55-1.3)
[2024-05-14 11:36] LABS: BILIRUBIN,TOTAL 0.9 mg/dL (0.2-1); TOT PROT 7.6 g/dl (6.4-8.2)
[2024-05-14] MEDS: chlordiazePOXIDE HCL 10 MG CAPSULE PO SCH (17:15)
[2024-05-15] MEDS ORDERED: LORazepam 0.5 MG TABLET PO ONE (05:00)
[2024-05-15] MEDS ORDERED: chlordiazePOXIDE HCL 10 MG CAPSULE PO SCH (05:00)
[2024-05-15] MEDS: chlordiazePOXIDE HCL 10 MG CAPSULE PO SCH (05:50)
[2024-05-15 21:28] VITALS: RESP 16
[2024-05-16] MEDS ORDERED: chlordiazePOXIDE HCL 10 MG CAPSULE PO ONE (05:00)
[2024-05-16] MEDS: chlordiazePOXIDE HCL 10 MG CAPSULE PO ONE (05:57)
[2024-05-16 13:10] VITALS: BP 142/90; PULSE 88; TEMP 98.7
== END 2024-05-16 13:20 | disposition home or self-care (01) | DRG 775 ==
LOC: YASAS 16:35 → Y6N 18:16
PROVIDERS: ADMIT Allergy & Immunology; ATTEND Allergy & Immunology
PROC: HZ2ZZZZ Detoxification Services for Substance Abuse Treatment (ICD-10-PCS; principal; 2024-05-11)
DX: F10.230 Alcohol dependence with withdrawal, uncomplicated (principal); F17.210 Nicotine dependence, cigarettes, uncomplicated; F10.280 Alcohol dependence with alcohol-induced anxiety disorder; F10.282 Alcohol dependence with alcohol-induced sleep disorder; F32.9 Major depressive disorder, single episode, unspecified; Z21 Asymptomatic human immunodeficiency virus [HIV] infection status; D50.0 Iron deficiency anemia secondary to blood loss (chronic); G40.909 Epilepsy, unspecified, not intractable, without status epilepticus; K21.00 Gastro-esophageal reflux disease with esophagitis, without bleeding; R26.89 Other abnormalities of gait and mobility; Z79.899 Other long term (current) drug therapy; Z86.19 Personal history of other infectious and parasitic diseases
CPT/HCPCS: 36415; 80053; 80305; 80307; 82140; 83690; 85027; 86359; 86360; 86593; 86780; 87811

== ENCOUNTER 2024-06-19 13:03 | Inpatient (IN) | payer OTHER ==
[2024-06-19 13:55] VITALS: BMI 26.4
[2024-06-19] MEDS ORDERED: IBUPROFEN 400 MG TABLET (FP) PO PRN (14:07)
[2024-06-19] MEDS ORDERED: guaiFENesin 600 MG TABLET.ER (FP) PO PRN (14:07)
[2024-06-19] MEDS ORDERED: ACETAMINOPHEN 325 MG TABLET (FP) PO PRN (14:07)
[2024-06-19] MEDS ORDERED: BENZOCAINE/MENTHOL (CHLORASEPTIC ) LOZENGE MM PRN (14:07)
[2024-06-19] MEDS ORDERED: MAG HYDROX/AL HYDROX/SIMETH 30 ML UNIT-DOSE CUP PO PRN (14:07)
[2024-06-19] MEDS ORDERED: LOPERAMIDE HCL 2 MG CAPSULE PO PRN (14:07)
[2024-06-19] MEDS ORDERED: BENZONATATE 200 MG CAPSULE PO PRN (14:07)
[2024-06-19] MEDS ORDERED: BISMUTH SUBSALICYLATE 524 MG/30 ML PO PRN (14:07)
[2024-06-19] MEDS ORDERED: NALOXONE (NARCAN) HCL 4 MG/0.1 ML SPRAY NS PRN (14:07)
[2024-06-19] MEDS ORDERED: ONDANSETRON *ODT* 4 MG TABLET SL PRN (14:07)
[2024-06-19] MEDS ORDERED: chlordiazePOXIDE HCL 25 MG CAPSULE ONE (14:47)
[2024-06-19] MEDS ORDERED: propRANOLol HCL 10 MG TABLET ONE (14:47)
[2024-06-19] MEDS: propRANOLol HCL 10 MG TABLET PO ONE (14:50)
[2024-06-19] MEDS: chlordiazePOXIDE HCL 25 MG CAPSULE PO ONE (15:03)
[2024-06-19] MEDS: GABAPENTIN 300 MG CAPSULE PO SCH (15:16)
[2024-06-19] MEDS: METHOCARBAMOL 500 MG TABLET PO PRN (15:48)
[2024-06-19] MEDS: chlordiazePOXIDE HCL 25 MG CAPSULE PO SCH (17:30)
[2024-06-19] MEDS ORDERED: MELATONIN 5 MG TABLETS PO SCH (22:00)
[2024-06-19] MEDS: levETIRAcetam 500 MG TABLET (FP) PO SCH (22:12)
[2024-06-19] MEDS: THIAMINE 100 MG TABLET PO SCH (22:13)
[2024-06-19] MEDS: QUEtiapine FUMARATE 50 MG TABLET PO SCH (22:13)
[2024-06-19] MEDS: METOPROLOL TARTRATE 25 MG TABLET (FP) PO SCH (22:13)
[2024-06-20] MEDS: FAMOTIDINE 20 MG TABLET PO SCH (05:58)
[2024-06-20] MEDS: MAGNESIUM HYDROX 2400MG/30ML ORAL SUSPENSION 30 ML CUP PO PRN (09:00)
[2024-06-20] MEDS: PRENATAL VITAMINS W/ FOLIC ACID TABLET (FP) PO SCH (10:17)
[2024-06-20] MEDS: QUEtiapine FUMARATE 50 MG TABLET PO SCH (10:18)
[2024-06-20] MEDS: BICTEGRAV/EMTRICIT/TENOFOV (BIKTARVY) 50-200-25 MG TABLET PO SCH (10:18)
[2024-06-20] MEDS: SULFAMETHOXAZOLE/TRIMETHOPRIM 800MG/160MG D.S. TABLET PO SCH (10:18)
[2024-06-20] MEDS: FERROUS SO4 325 MG TABLET (FP) PO SCH (13:53)
[2024-06-20] MEDS: chlordiazePOXIDE HCL 25 MG CAPSULE PO PRN (13:55)
[2024-06-20] MEDS: POLYETHYLENE GLYCOL (HEALTHYLAX) 3350 17 GM PACKET PO PRN (16:06)
[2024-06-20] MEDS: IBUPROFEN 600 MG TABLET (FP) PO PRN (16:08)
[2024-06-20] MEDS: DICYCLOMINE HCL 10 MG CAPSULE PO PRN (17:02)
[2024-06-20] MEDS: hydrOXYzine PAMOATE 25 MG CAPSULE (FP) PO PRN (19:24)
[2024-06-20] MEDS: levETIRAcetam 250 MG TABLET PO SCH (21:25)
[2024-06-21] MEDS: chlordiazePOXIDE HCL 25 MG CAPSULE PO SCH (05:43)
[2024-06-21] MEDS: NALTREXONE HCL 50 MG TABLET PO SCH (09:20)
[2024-06-22] MEDS: chlordiazePOXIDE HCL 10 MG CAPSULE PO SCH (05:55)
[2024-06-22] MEDS: chlordiazePOXIDE HCL 10 MG CAPSULE PO ONE (13:32)
[2024-06-22] MEDS: chlordiazePOXIDE HCL 10 MG CAPSULE PO PRN (20:02)
[2024-06-23] MEDS: chlordiazePOXIDE HCL 10 MG CAPSULE PO SCH (05:45)
[2024-06-24] MEDS: chlordiazePOXIDE HCL 10 MG CAPSULE PO ONE (05:45)
[2024-06-24 09:29] VITALS: PULSE 90; RESP 18
[2024-06-24 13:52] VITALS: BP 112/66; TEMP 98
== END 2024-06-24 14:05 | disposition other institution (70) | DRG 775 ==
LOC: YASAS 13:03 → Y6N 14:23
PROVIDERS: ADMIT Neuromusculoskeletal Medicine & OMM; ATTEND Allergy & Immunology
PROC: HZ2ZZZZ Detoxification Services for Substance Abuse Treatment (ICD-10-PCS; principal; 2024-06-19)
DX: F10.230 Alcohol dependence with withdrawal, uncomplicated (principal); F13.230 Sedative, hypnotic or anxiolytic dependence with withdrawal, uncomplicated; F10.282 Alcohol dependence with alcohol-induced sleep disorder; F10.280 Alcohol dependence with alcohol-induced anxiety disorder; F10.24 Alcohol dependence with alcohol-induced mood disorder; Z21 Asymptomatic human immunodeficiency virus [HIV] infection status; D70.2 Other drug-induced agranulocytosis; I10 Essential (primary) hypertension; K70.30 Alcoholic cirrhosis of liver without ascites; K21.9 Gastro-esophageal reflux disease without esophagitis; Z87.891 Personal history of nicotine dependence; Z87.19 Personal history of other diseases of the digestive system
CPT/HCPCS: 73610-TC-RT-FY; 73630-TC-RT-FY; 80305; 80307; 87811

== ENCOUNTER 2024-06-24 14:24 | Inpatient (IN) | payer OTHER ==
[2024-06-24] MEDS ORDERED: ACETAMINOPHEN 325 MG TABLET (FP) PO PRN (15:20)
[2024-06-24] MEDS ORDERED: POLYETHYLENE GLYCOL (HEALTHYLAX) 3350 17 GM PACKET PO PRN (15:20)
[2024-06-24] MEDS ORDERED: BENZONATATE 200 MG CAPSULE PO PRN (15:20)
[2024-06-24] MEDS ORDERED: IBUPROFEN 600 MG TABLET (FP) PO PRN (15:20)
[2024-06-24] MEDS ORDERED: IBUPROFEN 400 MG TABLET (FP) PO PRN (15:20)
[2024-06-24] MEDS ORDERED: LOPERAMIDE HCL 2 MG CAPSULE PO PRN (15:20)
[2024-06-24] MEDS ORDERED: NICOTINE POLACRILEX 2 MG GUM BUC PRN (15:20)
[2024-06-24] MEDS ORDERED: guaiFENesin 600 MG TABLET.ER (FP) PO PRN (15:20)
[2024-06-24] MEDS ORDERED: BENZOCAINE/MENTHOL (CHLORASEPTIC ) LOZENGE MM PRN (15:20)
[2024-06-24] MEDS ORDERED: NICOTINE POLACRILEX 2 MG LOZENGE BC PRN (15:20)
[2024-06-24] MEDS: levETIRAcetam 250 MG TABLET PO SCH (21:29)
[2024-06-24] MEDS: GABAPENTIN 300 MG CAPSULE PO SCH (21:29)
[2024-06-24] MEDS: QUEtiapine FUMARATE 50 MG TABLET PO SCH (21:29)
[2024-06-24] MEDS: THIAMINE 100 MG TABLET PO SCH (21:30)
[2024-06-24] MEDS: METOPROLOL TARTRATE 25 MG TABLET (FP) PO SCH (21:30)
[2024-06-24] MEDS: MELATONIN 5 MG TABLETS PO SCH (21:30)
[2024-06-24] MEDS ORDERED: levETIRAcetam XR 750 MG TAB PO SCH (22:00)
[2024-06-25] MEDS: FAMOTIDINE 20 MG TABLET PO SCH (06:12)
[2024-06-25] MEDS: hydrOXYzine PAMOATE 25 MG CAPSULE (FP) PO PRN ×2 (06:14→17:58)
[2024-06-25] MEDS: BICTEGRAV/EMTRICIT/TENOFOV (BIKTARVY) 50-200-25 MG TABLET PO SCH (07:08)
[2024-06-25] MEDS ORDERED: METHOCARBAMOL 500 MG TABLET PO PRN (09:40)
[2024-06-25] MEDS: PRENATAL VITAMINS W/ FOLIC ACID TABLET (FP) PO SCH (10:38)
[2024-06-25] MEDS: NALTREXONE HCL 50 MG TABLET PO SCH (10:38)
[2024-06-25] MEDS: QUEtiapine FUMARATE 50 MG TABLET PO SCH (10:39)
[2024-06-25] MEDS: VITAMINS A AND D TOPICAL OINTMENT TP SCH (21:37)
[2024-06-25] MEDS: QUEtiapine FUMARATE 100 MG TABLET (FP) PO SCH (21:38)
[2024-06-26] MEDS: METHOCARBAMOL 500 MG TABLET PO PRN (06:22)
[2024-06-26] MEDS: MAGNESIUM HYDROX 2400MG/30ML ORAL SUSPENSION 30 ML CUP PO PRN (07:29)
[2024-06-26 11:15] LABS: HEMATOCRIT 29.3 % (40.1-51.0); HEMOGLOBIN 9.4 g/dL (13.7-17.5); MCHC 32.1 g/dl (32.3-36.5); MEAN CELL VOLUME 106.9 fl (79.0-92.2); MEAN PLT VOLUME 9.9 fl (9.4-12.4); PLATELET COUNT 287 x10^3/uL (163-337); RDW 16.2 % (12.0-15.6)
[2024-06-26 11:24] LABS: POTASSIUM 4.6 mmol/L (3.5-5.1)
[2024-06-26 12:12] LABS: ALBUMIN 2.7 g/dl (3.4-5.0); BLOOD UREA NITROGEN 10.5 mg/dL (7-18); CALCIUM 8.6 mg/dL (8.5-10.1)
[2024-06-26 12:15] LABS: CREATININE 0.6 mg/dL (0.55-1.3)
[2024-06-26 12:16] LABS: BILIRUBIN,TOTAL 1.3 mg/dL (0.2-1); TOT PROT 7.3 g/dl (6.4-8.2)
[2024-06-26] MEDS: LACTULOSE 20 GM/30 ML UDC (FOR ORAL USE ONLY) PO SCH (14:30)
[2024-06-27] MEDS: MAG HYDROX/AL HYDROX/SIMETH 30 ML UNIT-DOSE CUP PO PRN (10:35)
[2024-06-28] MEDS ORDERED: LACTULOSE 20 GM/30 ML UDC (FOR ORAL USE ONLY) PO SCH (10:00)
[2024-06-28] MEDS: RIFAXIMIN 550 MG TABLET PO SCH (11:16)
[2024-06-28] MEDS: FERROUS SO4 325 MG TABLET (FP) PO SCH (21:11)
[2024-06-29] MEDS: BICTEGRAV/EMTRICIT/TENOFOV (BIKTARVY) 50-200-25 MG TABLET PO SCH (06:27)
[2024-06-29] MEDS ORDERED: FERROUS SO4 325 MG TABLET (FP) PO SCH (10:00)
[2024-07-05 11:10] LABS: POTASSIUM 3.7 mmol/L (3.5-5.1)
[2024-07-05 11:18] LABS: ALBUMIN 2.9 g/dl (3.4-5.0); CALCIUM 8.6 mg/dL (8.5-10.1)
[2024-07-05 11:19] LABS: BLOOD UREA NITROGEN 10.8 mg/dL (7-18)
[2024-07-05 11:20] LABS: TOT PROT 7.6 g/dl (6.4-8.2)
[2024-07-05 11:21] LABS: CREATININE 0.7 mg/dL (0.55-1.3)
[2024-07-05] MEDS: guaiFENesin 200 MG/10 ML 10 ML UNIT-DOSE CUPS PO PRN (12:23)
[2024-07-06 07:01] VITALS: BP 128/83; PULSE 77; RESP 16; TEMP 98
== END 2024-07-06 11:20 | disposition home or self-care (01) | DRG 772 ==
LOC: YASAS 14:24 → Y5N 14:26 → Y3NR 14:28 → Y5N 14:29
PROVIDERS: ADMIT Psychiatry & Neurology Pain Medicine; ATTEND Psychiatry & Neurology Pain Medicine
PROC: HZ42ZZZ Group Counseling for Substance Abuse Treatment, Cognitive-Behavioral (ICD-10-PCS; principal; 2024-06-24)
DX: F10.20 Alcohol dependence, uncomplicated (principal); F13.10 Sedative, hypnotic or anxiolytic abuse, uncomplicated; F33.0 Major depressive disorder, recurrent, mild; F10.282 Alcohol dependence with alcohol-induced sleep disorder; F10.280 Alcohol dependence with alcohol-induced anxiety disorder; F10.24 Alcohol dependence with alcohol-induced mood disorder; F41.9 Anxiety disorder, unspecified; Z21 Asymptomatic human immunodeficiency virus [HIV] infection status; I10 Essential (primary) hypertension; E72.20 Disorder of urea cycle metabolism, unspecified; K70.30 Alcoholic cirrhosis of liver without ascites; K21.9 Gastro-esophageal reflux disease without esophagitis; Z86.69 Personal history of other diseases of the nervous system and sense organs; Z87.891 Personal history of nicotine dependence; Z79.899 Other long term (current) drug therapy
CPT/HCPCS: 36415; 80053; 82140; 85027; 86593; 86780

== ENCOUNTER 2024-10-01 03:27 | Inpatient (IN) | payer OTHER ==
[2024-10-01] MEDS ORDERED: IBUPROFEN 600 MG TABLET (FP) PO PRN (06:52)
[2024-10-01] MEDS ORDERED: MAG HYDROX/AL HYDROX/SIMETH 30 ML UNIT-DOSE CUP PO PRN (06:52)
[2024-10-01] MEDS ORDERED: LOPERAMIDE HCL 2 MG CAPSULE PO PRN (06:52)
[2024-10-01] MEDS ORDERED: IBUPROFEN 400 MG TABLET (FP) PO PRN (06:52)
[2024-10-01] MEDS ORDERED: MAGNESIUM HYDROX 2400MG/30ML ORAL SUSPENSION 30 ML CUP PO PRN (06:52)
[2024-10-01] MEDS ORDERED: DICYCLOMINE HCL 10 MG CAPSULE PO PRN (06:52)
[2024-10-01] MEDS ORDERED: BENZOCAINE/MENTHOL (CHLORASEPTIC ) LOZENGE MM PRN (06:52)
[2024-10-01] MEDS ORDERED: POLYETHYLENE GLYCOL (HEALTHYLAX) 3350 17 GM PACKET PO PRN (06:52)
[2024-10-01] MEDS ORDERED: NALOXONE (NARCAN) HCL 4 MG/0.1 ML SPRAY NS PRN (06:52)
[2024-10-01] MEDS ORDERED: guaiFENesin 600 MG TABLET.ER (FP) PO PRN (06:52)
[2024-10-01] MEDS ORDERED: BENZONATATE 200 MG CAPSULE PO PRN (06:52)
[2024-10-01] MEDS ORDERED: BISMUTH SUBSALICYLATE 524 MG/30 ML PO PRN (06:52)
[2024-10-01 07:11] VITALS: BMI 27.6
[2024-10-01] MEDS: levETIRAcetam 500 MG TABLET (FP) PO SCH (10:48)
[2024-10-01] MEDS: PRENATAL VITAMINS W/ FOLIC ACID TABLET (FP) PO SCH (10:48)
[2024-10-01] MEDS: BICTEGRAV/EMTRICIT/TENOFOV (BIKTARVY) 50-200-25 MG TABLET PO SCH (15:35)
[2024-10-01] MEDS: ONDANSETRON *ODT* 4 MG TABLET SL PRN (21:32)
[2024-10-01] MEDS ORDERED: levETIRAcetam XR 750 MG TAB PO SCH (22:00)
[2024-10-01] MEDS: QUEtiapine FUMARATE 100 MG TABLET (FP) PO SCH (22:21)
[2024-10-01] MEDS: MELATONIN 5 MG TABLETS PO SCH (22:21)
[2024-10-01] MEDS: THIAMINE 100 MG TABLET PO SCH (22:21)
[2024-10-01] MEDS: METOPROLOL TARTRATE 25 MG TABLET (FP) PO SCH (22:21)
[2024-10-02] MEDS: FAMOTIDINE 20 MG TABLET PO SCH (05:40)
[2024-10-02 13:36] LABS: MCHC 31.9 g/dl (32.3-36.5); MEAN CELL VOLUME 102.0 fl (79.0-92.2); MEAN PLT VOLUME 11.0 fl (9.4-12.4); RDW 13.6 % (12.0-15.6)
[2024-10-02] MEDS: METHOCARBAMOL 500 MG TABLET PO PRN (14:52)
[2024-10-02] MEDS: ACETAMINOPHEN 325 MG TABLET (FP) PO PRN (20:25)
[2024-10-02] MEDS: hydrOXYzine PAMOATE 25 MG CAPSULE (FP) PO PRN (20:25)
[2024-10-03 06:30] VITALS: RESP 16
[2024-10-03 08:58] VITALS: BP 121/69; PULSE 69; TEMP 97.1
[2024-10-03 11:02] LABS: CO2 28.0 mmol/L (21-32)
[2024-10-03 11:03] LABS: GLUCOSE,RANDOM 95.0 mg/dL (74-106)
[2024-10-03 11:08] LABS: CREATININE 0.8 mg/dL (0.55-1.3); SGOT/AST 64.0 U/L (15-37); SGPT/ALT 32.0 U/L (13-61); TOT PROT 7.3 g/dl (6.4-8.2)
[2024-10-03 11:10] LABS: ALK PHOS 148.0 U/L (45-117)
== END 2024-10-03 13:42 | disposition home or self-care (01) | DRG 775 ==
LOC: YASAS 03:27 → Y3N 07:26
PROVIDERS: ADMIT Allergy & Immunology; ATTEND Family Medicine Addiction Medicine
PROC: HZ2ZZZZ Detoxification Services for Substance Abuse Treatment (ICD-10-PCS; principal; 2024-10-01)
DX: F10.230 Alcohol dependence with withdrawal, uncomplicated (principal); F17.210 Nicotine dependence, cigarettes, uncomplicated; Z21 Asymptomatic human immunodeficiency virus [HIV] infection status; I10 Essential (primary) hypertension; F41.8 Other specified anxiety disorders
CPT/HCPCS: 36415; 80053; 80305; 80307; 85027; 86593; 86780; 93005; 93010; Q0162